=== PATIENT | female | born 1960 | race African-American/Black ===

== ENCOUNTER → 2022-11-16 09:39 | Outpatient (CLI) | payer SELFPAY ==
--- NOTE | ~2022-11-16 | MM_ITS ---
EXAMINATION: MM screening [facility] BI w veronica HISTORY: Screening TECHNIQUE: Craniocaudal and mediolateral oblique 3-D tomosynthesis images were obtained and synthetic 2-D images were generated. CAD analysis was submitted and interpreted. COMPARISON: No prior mammogram is available for comparison at this institution. BREAST PARENCHYMAL COMPOSITION: There are scattered areas of fibroglandular density. FINDINGS: There is diminished volume of the right breast and some retraction medially; history of par tial right mastectomy and radiotherapy for breast malignancy. Otherwise no suspicious mass or architectural distortion, malignant calcification, skin thickening or retraction is noted. IMPRESSION: 1. Status post right partial mastectomy for breast cancer; no mammographic evidence of malignancy 2. Recommend routine screening mammography in one year. BI-RADS Category 2: Benign finding(s). Reviewed, dictated and finalized at location B. IMPRESSION: 1. Status post right partial mastectomy for breast cancer; no mammographic evid ence of malignancy 2. Recommend routine screening mammography in one year. BI-RADS Category 2: Benign finding(s).
== END ==
DX: Z12.31 Encounter for screening mammogram for malignant neoplasm of breast (principal)
CPT/HCPCS: 77063; 77067

== ENCOUNTER 2024-02-26 20:56 | Emergency (ER) | payer OTHER, SELFPAY ==
--- NOTE | ~2024-02-26 | CT_ITS ---
CT of the Abdomen and Pelvis: Indication: Abdominal pain Technique: 2.5 mm axial scans were obtained through the abdomen and pelvis following intravenous adm inistration of 100 cc of Omnipaque 350. Dose reduction technique was used on this scan by utilizing a utomated exposure control and iterative reconstruction technique. The dose-length product (DLP) was 1 290.27 mGy-cm. Findings: Scans through the lung bases are unremarkable. The liver, spleen, pancreas, and adrenal glands are within normal limits. Small right renal cyst note d. 1.5 cm left renal mass demonstrates minimally increased Hounsfield units (Hounsfield units 29). Ch olecystectomy clips are present. No evidence of aortic aneurysm. No lymphadenopathy. No bowel obstruction or bowel wall thickening. There is no evidence to suggest acute appendicitis. Images through the pelvis were performed. Urinary bladder unremarkable. 3.8 cm left ovarian cyst pres ent. No ascites. Impression: 3.8 cm left ovarian cyst. Given patient age, pelvic ultrasound recommended to further assess. 1.5 cm suspected left renal cyst, although the Hounsfield units are mildly increased. Consider pre an d postcontrast CT or MR to confirm cystic rather than solid lesion. Reviewed, dictated and finalized at location . 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 Given patient age, pelvic ultrasound recommended to f urther assess. 1.5 cm suspected left renal cyst, although the Hounsfield units are mildly incr eased. Consider pre and postcontrast CT or MR to confirm cystic rather than sima id lesion.
[2024-02-26 21:00] VITALS: BP 173/75; PULSE 87; RESP 16; TEMP 36.3; O2SAT 99
[2024-02-27 02:21] VITALS: BP 164/74; PULSE 57; RESP 15; O2SAT 99
[2024-02-27 02:25] LABS: Basophils Percent Auto 0.3 % (0.2-1.2); Eosinophils Absolute Auto 0.3 K/mm3 (0-0.3); Eosinophils Percent Auto 1.7 % (0-4.4); Hematocrit 39.6 % (37.0-47.0); Hemoglobin 12.9 g/dL (12.0-15.0); Immature Granulocyte Absolute 0.04 K/mm3 (0.00-0.031); Immature Granulocyte Percent A 0.3 % (0-0.5); Lymphocytes Absolute Auto 8.97 K/mm3 (0.9-3.2); Lymphocytes Percent Auto 57.1 % (18.3-44.2); Mean Corpuscular HGB Conc 32.6 g/dl (32-36); Mean Corpuscular Hemoglobin 25.6 pg (26-34); Mean Corpuscular Volume 78.7 fl (80-100); Mean Platelet Volume 9.9 fl (7.4-10.4); Monocytes Absolute Auto 1.2 K/mm3 (0.1-0.6); Monocytes Percent Auto 7.3 % (2.6-8.5); Neutrophils Absolute Auto 5.2 K/mm3 (1.3-6.7); Neutrophils Percent Auto 33.3 % (45.5-73.1); Platelet Count Result 302 k/mm3 (150-375); Red Blood Count 5.03 M/mm3 (4.2-5.4); Red Cell Distribution Width 14.8 % (11.5-14.5); White Blood Count 15.7 K/mm3 (4.5-10.0)
[2024-02-27 02:31] LABS: Add Urine Microscopic? YES; Appearance Urine Clear (Clear); Bacteria Urine None Seen /hpf; Bilirubin Urine Negative (Negative); Blood Urine Negative (Negative); Color Urine Yellow (Yellow); Glucose Urine UA Negative (Negative); Ketones Urine Negative (Negative); Leukocyte Esterase Ur 2+ LEU/UL (Negative); Nitrate Urine Negative (Negative); Non Pathogenic Casts 0-2; Protein Urine Negative (Negative); Specific Grav Ur 1.015 (1.001-1.035); Squamous Epithelial Cell Urine Occasional /hpf (Few); Urobilinogen Urine 0.2 mg/dL (<2.0); WBC Urine 51-100 /hpf (0-3)
[2024-02-27 02:37] LABS: Alanine Aminotransferase 19 U/L (6-35); Albumin Level 4.6 g/dL (3.5-5.1); Alkaline Phosphatase 50 U/L (38-126); Anion Gap 5 mmol/L (4-12); Aspartate Amino Transferase 26 U/L (14-36); Bilirubin,Total 0.8 mg/dL (0.2-1.3); Blood Urea Nitrogen 13 mg/dL (7-17); Calcium 9.6 mg/dL (8.4-10.2); Carbon Dioxide 30 mmol/L (22-30); Chloride 105 mmol/L (98-107); Estimated CRCL calculation 67 ml/min; Estimated Glomerular Filt Rate > 60; Glucose 92 mg/dL (65-110); Lipase 120 U/L (23-300); Potassium 4.2 mmol/L (3.4-5.0); Sodium 140 mmol/L (137-145)
[2024-02-27] MEDS: SODIUM CHLORIDE 0.9% IV 1,000 ML 999 ML IV CONT (02:51)
[2024-02-27] MEDS: ONDANSETRON INJ 4 MG/2 ML VIAL IV PUSH (02:51)
[2024-02-27 02:58] LABS: Anisocytosis 1+; Burr Cells 1+; Hypochromasia 1+; Platelet Estimate Adequate (Adequate); Schistocytes None Seen; Smudge Cells PRESENT
[2024-02-27] MEDS: ACETAMINOPHEN 500 MG TABLET 1000 MG PO (02:58)
[2024-02-27 04:30] VITALS: BP 130/72; PULSE 67; RESP 15; O2SAT 95
--- NOTE | 2024-02-27 04:57 | ED.GENADULT ---
HPI - General Adult General Chief complaint: Abdominal Pain Stated complaint: abd pain, dizziness x 1 month Time Seen by Provider: 02/27/24 02:25 History of Present Illness HPI narrative: patient is 64-year-old female who presents emergency department with chief complaint of right-sided abdominal pain. Patient reports that she has had some itching over body for the last month but reports that she has discomfort in her right side her abdomen. Patient reports no fever reports she has had a headache with this. Related Data Allergies Allergy/AdvReac Type Severity Reaction Status Date / Time hydromorphone [From Dilaudid] Allergy Shakiness Verified 02/27/24 02:47 Penicillins Allergy Hallucinati Verified 02/27/24 02:47 ng Sulfa (Sulfonamide Allergy Hives Verified 02/27/24 02:47 Antibiotics) Review of Systems Review of Systems: A 10 system review of systems was completed on the patient and is negative except for what is stated in the HPI. Nursing and ancillary documentation was reviewed. Exam Narrative: GENERAL: Well-appearing, well-nourished, and in no acute distress. HEAD: Normocephalic, atraumatic. EYES: PERRLA and EOMI. ENT: Nares clear, no rhinorrhea or epistaxis. Mucous membranes moist. NECK: Supple. CHEST: Clear to auscultation. No respiratory distress. HEART: Regular rate and rhythm. No murmur heard. Normal peripheral pulses. ABDOMEN: Soft, nontender, nondistended, normal active bowel sounds. EXTREMITIES: Normal range of motion. No edema. SKIN: Warm, dry, no rash. NEURO: No focal deficits. Alert and oriented x3. PSYCH: Normal mood and affect. Course Vital Signs Vital signs: Vital Signs Temperature 36.3 C L 02/26/24 21:00 Pulse Rate 87 02/26/24 21:00 Respiratory Rate 16 02/26/24 21:00 Blood Pressure 173/75 H 02/26/24 21:00 Pulse Oximetry 99 02/26/24 21:00 Temperature 36.3 C L 02/26/24 21:00 Pulse Rate 67 02/27/24 04:30 Respiratory Rate 15 02/27/24 04:30 Blood Pressure 130/72 02/27/24 04:30 Pulse Oximetry 95 02/27/24 04:30 Medical Decision Making [facility] Narrative Medical decision making narrative: Differential diagnosis includes UTI, intra-abdominal infection, diverticulitis, colitis, appendicitis laboratory studies were obtained the patient shows CBC with white count 15.7 electrolytes are within normal limits lipase was normal urinalysis showed 51-100 white blood cells and 2+ leukocyte esterase patient was started on antibiotics. CT scan of the abdomen pelvis showed a left ovarian cyst and no other acute abnormalities Vital Signs Vital Signs: Vital Signs Temperature 36.3 C L 02/26/24 21:00 Pulse Rate 87 02/26/24 21:00 Respiratory Rate 16 02/26/24 21:00 Blood Pressure 173/75 H 02/26/24 21:00 Pulse Oximetry 99 02/26/24 21:00 Temperature 36.3 C L 02/26/24 21:00 Pulse Rate 67 02/27/24 04:30 Respiratory Rate 15 02/27/24 04:30 Blood Pressure 130/72 02/27/24 04:30 Pulse Oximetry 95 02/27/24 04:30 Lab Data 02/27/24 02:14 02/27/24 02:14 Labs: Lab Results 02/27/24 Range/Units 02:14 WBC 15.7 H (4.5-10.0) K/mm3 RBC 5.03 (4.2-5.4) M/mm3 Hgb 12.9 (12.0-15.0) g/dL Hct 39.6 (37.0-47.0) % MCV 78.7 L (80-100) fl MCH 25.6 L (26-34) pg MCHC 32.6 (32-36) g/dl RDW 14.8 H (11.5-14.5) % Plt Count 302 (150-375) k/mm3 MPV 9.9 (7.4-10.4) fl Immature Gran % (Auto) 0.3 (0-0.5) % Neut % (Auto) 33.3 L (45.5-73.1) % Lymph % (Auto) 57.1 H (18.3-44.2) % [place] % (Auto) 7.3 (2.6-8.5) % Eos % (Auto) 1.7 (0-4.4) % Baso % (Auto) 0.3 (0.2-1.2) % Lymph # (Auto) 8.97 H (0.9-3.2) K/mm3 [place] # (Auto) 1.2 H (0.1-0.6) K/mm3 Eos # (Auto) 0.3 (0-0.3) K/mm3 Baso # (Auto) 0.0 (0.0-0.1) K/mm3 Abs Immat Gran (auto) 0.04 H (0.00-0.031) K/mm3 Absolute Neuts (auto) 5.2 (1.3-6.7) K/mm3 Absolute Nucleated RBC 0.000 (0.0-0.012) K/mm3 Nucleated RBC % 0.0 (0.0-0.2) % Smudge Cells Present Platelet Estimate Adequate (Adequate) Hypochromasia 1+ Anisocytosis 1+ Sanders Cells 1+ Schistocytes None seen Sodium 140 (137-145) mmol/L Potassium 4.2 (3.4-5.0) mmol/L Chloride 105 (98-107) mmol/L Carbon Dioxide 30 (22-30) mmol/L Anion Gap 5 (4-12) mmol/L BUN 13 (7-17) mg/dL Creatinine 0.90 (0.7-1.0) mg/dL Estim Creat Clear Calc 67 ml/min Estimated GFR > 60 (59 - ) Glucose 92 (65-110) mg/dL Calcium 9.6 (8.4-10.2) mg/dL Total Bilirubin 0.8 (0.2-1.3) mg/dL AST 26 (14-36) U/L ALT 19 (6-35) U/L Alkaline Phosphatase 50 (38-126) U/L Total Protein 9.0 H (6.3-8.2) g/dL Albumin 4.6 (3.5-5.1) g/dL Lipase 120 (23-300) U/L Urine Color Yellow (Yellow) Urine Appearance Clear (Clear) Urine pH 6.0 (5.0-9.0) Ur Specific [place] 1.015 (1.001-1.035) Urine Protein Negative (Negative) mg/dL Urine Glucose (UA) Negative (Negative) mg/dL Urine Ketones Negative (Negative) mg/dL Ur Blood (Man) Negative (Negative) Urine Nitrate Negative (Negative) Urine Bilirubin Negative (Negative) Urine Urobilinogen 0.2 (<2.0) mg/dL Leukocyte Esterase Rfl 2+ H (Negative) AJ/UL Urine RBC 3-5 H (0-2) /hpf Urine WBC 51-100 H (0-3) /hpf Ur Squamous Epith Cells Occasional (Few) /hpf Urine Bacteria None seen /hpf Urine Casts 0-2 Discharge Plan Discharge Clinical Impression: Acute UTI, Abdominal pain, Ovarian cyst Patient Disposition: Home, Self-Care Condition: Stable Instructions: Antibiotic Form, Ovarian Cyst (ED), Urinary Tract Infection in Women (ED), Abdominal Pain (ED) Additional Instructions: the CT scan shows that there appears to be a cyst in the area we are left ovary is. your urinalysis shows that she have a urinary tract infection. You were started on antibiotics is recommended that you follow-up with your primary care provider to ensure that things have improved. Is also recommended that you follow-up with your OBGYN Prescriptions: New cephalexin 500 mg capsule 500 mg PO Q12H 7 Days Qty: 14 0RF Follow-up/Referrals: PHYSICIAN NOT ON STAFF,NONSTAFF [Primary Care Provider] - Time of Disposition: 05:03
[2024-02-27] MEDS: CEPHALEXIN 500 MG CAPSULE PO (05:12)
[2024-02-27 05:15] VITALS: BP 124/70; PULSE 61; RESP 17; O2SAT 99
== END 2024-02-27 05:15 | disposition home or self-care (01) ==
PROVIDERS: Preventive Medicine Aerospace Medicine; Emergency Provider Emergency Medicine
DX: N39.0 Urinary tract infection, site not specified (principal); N83.209 Unspecified ovarian cyst, unspecified side; R93.422 Abnormal radiologic findings on diagnostic imaging of left kidney
CPT/HCPCS: 36415; 74177; 80053; 81001; 83690; 85025; 87086; 96361; 96374; 99284; A9270; J2405; J7030; Q9967

== ENCOUNTER 2024-08-31 01:05 | Day surgery (SDC) | payer MEDICARE, SELFPAY ==
[2024-08-24 10:55] VITALS: BMI 34.5
--- OUTSIDE RECORDS SUMMARY | 2024-08-31 01:07 | XMS_ITS | Referral Summary ---
Author Organization [facility] Address Count includes the [facility] [place] [address] Care Team Providers Care Senior Economist Name Role Phone Carlos Yanez MD Primary Care Provider Encounters Date Type Department Care Team Description 06/15/2024 Orders Only [facility] Neurology [facility] [address] [address] Vincenzo Capps Si, MD Vertigo from Last 3 Months Allergies Active Allergy Reactions Criticality Noted Date Comments Hydromorphone Shortness of breath High 01/14/2020 Penicillins Dizziness Low 09/29/2019 Sulfa Hives,Urticaria Medium 09/29/2019 Medications calcium carbonate-vitam in D3 1,500 mg (600mg elemental) -800 unit per tablet Take 1 tablet by mouth every morning Active fish oil-dha-epa 1,200-144-216 mg capsule Take by mouth 2 (two) times a day Active ascorbic acid (ascorbic acid with lalo hips) 500 mg tablet,chewable 500 mg every morning Active cholecalciferol (VITAMIN D-3) 5,000 unit capsule Take 1 capsule (5,000 Units total) by mouth every morning Active fluticasone propionate (FLONASE) 50 mcg/actuation nasal spray Administer 2 sprays into affected nostril(s) daily 9 Active metoprolol XL (TOPROL-XL) 50 mg extended release tablet Take 1 tablet (50 mg total) by mouth daily 4 Active omeprazole (PriLOSEC) 40 mg capsule Take 1 capsule (40 mg total) by mouth daily 30 capsule 1 4 Active cephalexin (KEFLEX) 500 mg capsule Take 1 capsule (500 mg total) by mouth every 12 (twelve) hours 4 Active cetirizine (ZyrTEC) 10 mg tablet Take 1 tablet (10 mg total) by mouth daily 5 Active meclizine (ANTIVERT) 25 mg tablet Take 1 tablet (25 mg total) by mouth 3 (three) times a day 5 Active spironolactone (ALDACTONE) 50 mg tablet Take 1 tablet (50 mg total) by mouth daily 5 Active venlafaxine (EFFEXOR) 25 mg tablet Take 1 tablet (25 mg total) by mouth 2 (two) times a day 60 tablet 5 5 11/25/19 25 Active Active Problems Problem Noted Date Diagnosed Date 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 Left hemithyroidectomy with substernal extension. 2. Reimplantation of half of the left superior parathyroid into right deltoid musculature. Multiple thyroid nodules 12/07/2019 Overview (12/07/2019): Added automatically from request for surgery [id number] Social History Tobacco Use Types Packs/Day Years Used Date Smoking Tobacco: Former Cigarettes Q uit: 1996 Smokeless Tobacco: Never Tobacco Cessation:Counseling Given: Not Answered Alcohol Use Standard Drinks/Week Comments Never 0 (1 standard drink = 0.6 oz pur e alcohol) AUDIT-C Answer Date Recorded Q1: How often do you have a drink containing alc ohol? Never 08/25/2023 Average Number of Drinks Not on file 024 Frequency of Binge Drinking Not on file 05/2023 Comments No Sex and Gender Information Value Date Recorded Sex Assigned at Not on file Legal Sex Female 4:31 PM SANITATION ASSOCIATE Gender Identity Not on file Sexual Orientation Not on file Last Filed Vital Signs Vital Sign Reading Time Taken Comments Blood Pressure 158/71 01/14/2020 3:50 PM CDT Pulse 84 01/14/2020 3:50 PM CDT Temperature 36.1 C (97 F) 01/14/2020 4:15 PM CDT Respiratory Rate 25 01/14/2020 3:50 PM CDT Oxygen Saturation 97% 01/14/2020 3:50 PM CDT Inhaled Oxygen Concentration - - Weight 101.6 kg (224 lb) 05/28/2024 8:04 AM SANITATION ASSOCIATE Height 170.2 cm (5' 7) 05/28/2024 8:04 AM SANITATION ASSOCIATE Body Mass Index 35.08 05/28/2024 8:04 AM SANITATION ASSOCIATE Plan of Treatment Not on file Procedures Procedure Name Priority Date/Time Associated Diagnosis Comments SCREENING MAMMOGRAM BILATERAL W MATHEUS Schedule Routine, Read Routine (OP Routine) 05/29/2024 1:48 PM SANITATION ASSOCIATE Screening mammogram, encounter for COLONOSCOPY 11/18/2019 8:47 AM CDT from Last 3 Months or Most Recently Relevant to Health Maintenance Results * Screening Mammogram Bilateral W Matheus (05/29/2024 1:48 PM SANITATION ASSOCIATE) Anatomical Region Laterality Modality Breast Bilateral Mammography Narrative 05/31/2024 12:45 PM CDT Mammogram Technique: Bilateral Digital Breast Tomosynthesis, Bilateral C-view 2D Screening mammogram. Views obtained: bilateral craniocaudal and bilateral mediolateral oblique. Computer Aided Detection was performed. Mammogram Findings: The present examination has been compared to prior imaging studies performed at [facility] on 11/24/2019 and 11/30/2020, and at [facility]. [place], [place] on 07/24/2018. There are scattered areas of fibroglandular density. There are post breast conservation therapy changes in the right breast. There is no suspicious abnormality in either breast. Impression: There is no mammographic evidence of malignancy. Annual screening mammography is recommended. OVERALL FINAL ASSESSMENT: BI-RADS CATEGORY 2: Benign. Procedure Note Kandis Garcia MD - 05/31/2024 Mammogram Technique: Bilateral Digital Breast Tomosynthesis, Bilateral C-view 2D Screening mammogram. Views obtained: bilateral craniocaudal and bilateral mediolateral oblique. Computer Aided Detection was performed. Mammogram Findings: The present examination has been compared to prior imaging studies performed at [facility] on 11/24/2019 and 11/30/2020, and at [facility]. [place], [place] on 07/24/2018. There are scattered areas of fibroglandular density. There are post breast conservation therapy changes in the right breast. There is no suspicious abnormality in either breast. Impression: There is no mammographic evidence of malignancy. Annual screening mammography is recommended. OVERALL FINAL ASSESSMENT: BI-RADS CATEGORY 2: Benign. us Self Screening Mammogram IMG MAMMO PROCEDURES Fi nal Result * COLONOSCOPY (11/18/2019 8:47 AM CDT) Anatomical Region Laterality Modality Other Narrative Procedure Note Esperanza Gross MD - 11/18/2019 8:47 AM CDT [facility] ENDOSCOPY [facility] Patient Name: Fariba Kaplan Procedure Date: 11/18/2019 8:47 AM Date of : 1960 Admit Type: Outpatient Age: 59 Gender: Female Attending MD: Esperanza Gross MD Room: [facility] ENDOSCOPY ROOM 8 Note Status: Finalized Procedure: Colonoscopy Indications: Periumbilical abdominal pain, Diarrhea Referring MD: Annalee Melo M.D. Providers: Esperanza Gross MD, Edwin Grier M.D. Medicines: Monitored Anesthesia Care Complications: No immediate complications. Estimated Blood Loss: Minimal. Procedure: Pre-Anesthesia Assessment: - Monitored anesthesia care under the supervision ofa ENGINEERING AID was determined to be medically necessary forthis procedure based on review of the patient's medical history, medications, and prior anesthesiahistory. - Immediately prior to administration ofmedications, the patient was re-assessed for adequacy to receive sedatives. - The risks and benefits of the procedure and the sedation options and risks were discussed with the patient. All questions were answered and informed consent was obtained. The benefits, risks and alternatives of theprocedure and sedation were discussed and informed consent was obtained. All questions were answered. Please referto the signed informed consent document in the medical record. The scope was passed under direct vision.The CF HQ [id number] endoscope was introduced through the anus and advanced to the cecum, identified by appendiceal orifice and ileocecal valve. The colonoscopy was performed without difficulty. The patient tolerated the procedure well. The quality of the bowel preparation was excellent. The bowel preparation used was GoLYTELY. Bowel prep was administered using a split dose. Findings: A 5 mm polyp was found in the cecum. The polyp was sessile. The polyp was removed with a cold snare. Resection and retrieval werecomplete. A 5 mm polyp was found in the transverse colon. The polyp wassessile. The polyp was removed with a cold snare. Resection and retrieval were complete. Normal mucosa was found in the entire colon. Biopsies for histologywere taken with a cold forceps from the entire colon for evaluation of microscopic colitis. Four sessile polyps were found in the recto-sigmoid colon(hyperplastic appearing). The polyps were 3 mm in size. These polyps were removedwith a jumbo cold forceps. Resection and retrieval were complete. Non-bleeding internal hemorrhoids were found during retroflexion. Impression: - One 5 mm polyp in the cecum, removed with a cold snare. Resected and retrieved. - One 5 mm polyp in the transverse colon, removedwith a cold snare. Resected and retrieved. - Four 3 mm polyps (hyperplastic appearing) at the recto-sigmoid colon, removed with a jumbo coldforceps. Resected and retrieved. - Non-bleeding internal hemorrhoids. - Normal mucosa in the entire examined colon.Biopsied. Recommendation: - Discharge patient to home. - Await pathology results. - Repeat colonoscopy in 3-5 years for surveillance based on pathology results. - Return to referring physician. - A polyp or polyps were removed during your colonoscopy today. After the pathology result of the polyp(s) is reviewed, the doctor who performed your colonoscopy will recommend follow-up colonoscopy toyou based on current guidelines by gastroenterology societies: - If only small hyperplastic polyps from the rectumor sigmoid were removed, repeat the colonoscopy in 10 years. - If 1 or 2 polyps less than 1 cm in size areadenomas, repeat the colonoscopy in 5 years. - If 3 or more polyps are adenomas, repeat the colonoscopy in 3 years. - If there are 10 or more adenomas, repeat the colonoscopy in 1 year. - If any polyp is 10 mm or greater in size, hasvillous histology or high grade dysplasia, repeat the colonoscopy in 3 years. - If a polyp greater than 2 cm was removed with a piecemeal technique, repeat the colonoscopy in 6months to be certain that there is no residual polyp. - Sessile serrated polyps are treated like adenomasfor surveillance purposes. Attending Participation: I personally performed the entire procedure. Electronically signed by Esperanza Gross MD Esperanza Gross MD 11/18/2019 9:30:53 AM . Number of Addenda: 0 Note Initiated On: 11/18/2019 8:47 AM Recognized by the [place] [employer] for promoting quality in endoscopy us Esperanza Gross MD ENDOSCOPY PROCEDURES [place] l Result from Last 3 Months or Most Recently Relevant to Health Maintenance Insurance [facility] MEDICARE HMO G[facility]WAY TO [facility] [employer] MEDICARE HMO Advance Directives For more information, please contact: [phone] * Full Code (Latest Code Status on File) Date Activated Date Inactivated Comments 11/18/2019 8:26 AM 11/18/2019 4:55 PM Care Teams Senior Economist Relationship Specialty Start Date End Date Carlos Yanez MD [address] [place] [address] PCP - General Internal Medicine 05/10/24
--- OUTSIDE RECORDS SUMMARY | 2024-08-31 01:07 | XMS_ITS | Clinical Summary ---
Author Organization [facility] Address [address] [address] Care Team Providers Care Recycling Center Operator Name Role Phone Unavailable Primary Care Provider Unavailabl e Social History Tobacco Use Types Packs/Day Years Used Date Smoking Tobacco: Never Assessed Comments Unknown Sex and Gender Information Value Date Recorded Sex Assigned at Not on file Legal Sex Female 2:11 PM CDT Gender Identity Not on file Sexual Orientation Not on file Plan of Treatment Health Maintenance Due Date Last Done Comments DTAP/TDAP/TD VACCINES (1 - Tdap) 1977 BREAST CANCER SCREENING 1998 COLORECTAL SCREENING 2003 Colorectal Cancer Screening 2003 FIT-DNA Q 3 years 2003 FIT/FOBT Q 1 year 2003 Flex Sig/CT Colonography Q 5 years 2003 PNEUMOCOCCAL VACCINE 50+ YEARS (1 of 1 - PCV) 02/08/20 08 ZOSTER VACCINE (1 of 2) 02/08/2008 OSTEOPOROSIS SCREENING 2023 INFLUENZA VACCINE (#1) 2023 RSV VACCINE (60+ or ) (1 - 1-dose 75+ series) 2033
--- OUTSIDE RECORDS SUMMARY | 2024-08-31 01:07 | XMS_ITS | Clinical Summary ---
Author Organization [facility] Address [address] [place] [phone] Care Team Providers Care Civil Structural Engineer Name Role Phone Carlos Yanez MD Primary Care Provider Allergies Active Allergy Reactions Criticality Noted Date [...] (12/07/2019): Added automatically from request for surgery [id number] Encounters Date Type Department Care Team Description 06/15/2024 Orders Only [facility] Neurology [address] [place] [phone] Vincenzo Capps Si, MD Vertigo from Last 3 Months Surgical History Surgery Date Site/Laterality Comments HYSTERECTOMY 03/24/1991 - 03/23/1992 BREAST LUMPECTOMY 03/24/2016 - 03/23/2017 Right CHOLECYSTECTOMY 03/24/2007 - 03/23/2008 THYROID SURGERY Medical History Medical History Date Comments GERD (gastroesophageal reflux disease) Hypertension H. pylori infection 2016 Thyroid nodule Urinary tract infection Cervical cancer (HCC) 1991 Family History Medical History Relation Name Comments Thyroid cancer Brother Cancer Child Breast cancer Mother Anesthesia problems Neg Hx Relation Name Status Comments Brother Alive Child Other daughter and so n both with Hodgkins Lymphoma Mother Social History Tobacco Use Types Packs/Day Years [...] on file Legal Sex Female 4:31 PM MOVE COORDINATOR Gender Identity Not on file Sexual Orientation Not on file Obstetrics History Last Filed Vital Signs Vital Sign Reading Time Taken Comments Blood Pressure 158/71 01/14/2020 3:50 PM CDT Pulse 84 01/14/2020 3:50 PM CDT Temperature 36.1 C (97 F) 01/14/2020 4:15 PM CDT Respiratory Rate 25 01/14/2020 3:50 PM CDT Oxygen Saturation 97% 01/14/2020 3:50 PM CDT Inhaled Oxygen Concentration - - Weight 101.6 kg (224 lb) 05/28/2024 8:04 AM MOVE COORDINATOR Height 170.2 cm (5' 7) 05/28/2024 8:04 AM MOVE COORDINATOR Body Mass Index 35.08 05/28/2024 8:04 AM MOVE COORDINATOR Plan of Treatment Health Maintenance Due Date Last Done Comments Depression Screening 1960 Hepatitis C Screening 1960 Osteoporosis Screening-Bone Density Scan 1960 DTaP/Tdap/Td Vaccine (1 - Tdap) 1969 Hepatitis B Screening 02/08/1976 Pneumococcal vaccine 65+ (1 of 2 - PCV) 1977 Zoster Vaccine (1 of 2) 02/08/2008 Fall Risk Assessment 01/13/2021 01/14/2020 Well Visit 65+ 2023 Influenza Vaccine (Season Ended) 2024 04/01/19 20 Breast Cancer Screening-Mammogram 05/29/2025 05/29/2024, 11/30/2020, 11/24/2019 Colon Cancer Screening-Colonoscopy 11/17/20292019 Colon Cancer Screening-CT Colonography Discontinued 11/18/2019 Colon Cancer Screening-DNA Stool Discontinued 11/18/19 20 Colon Cancer Screening-FIT Discontinued 11/18/2019 Colon Cancer Screening-Sigmoidoscopy Discontinued 10/23 Procedures Procedure Name Priority Date/Time Associated Diagnosis Comments SCREENING MAMMOGRAM BILATERAL W MATHEUS Schedule Routine, Read Routine (OP Routine) 05/29/2024 1:48 PM MOVE COORDINATOR Screening mammogram, encounter for COLONOSCOPY 11/18/2019 8:47 AM CDT from Last 3 Months or Most Recently Relevant to Health Maintenance Results * Screening Mammogram Bilateral W Matheus (05/29/2024 1:48 PM MOVE COORDINATOR) Anatomical Region Laterality Modality Breast Bilateral Mammography Narrative 05/31/2024 12:45 PM CDT Mammogram Technique: Bilateral Digital Breast Tomosynthesis, Bilateral C-view 2D Screening mammogram. Views obtained: bilateral craniocaudal and bilateral mediolateral oblique. Computer Aided Detection was performed. Mammogram Findings: The present examination has been compared to prior imaging studies performed at [facility] on 11/24/2019 and 11/30/2020, and at [facility]. Anita Parker on 07/24/2018. There are scattered areas of [...] compared to prior imaging studies performed at [facility] on 11/24/2019 and 11/30/2020, and at [facility]. Anita Parker on 07/24/2018. There are scattered areas of [...] Female Attending MD: Esperanza Gross MD Room: [facility] ENDOSCOPY ROOM 8 Note Status: Finalized Procedure: Colonoscopy Indications: Periumbilical abdominal pain, Diarrhea Referring MD: Annalee Melo M.D. Providers: Esperanza Gross MD, Edwin Grier M.D. Medicines: Monitored Anesthesia Care Complications: No immediate complications. Estimated Blood Loss: Minimal. Procedure: Pre-Anesthesia Assessment: - Monitored anesthesia care under the supervision ofmarga GEOPHYSICAL E LOGGER was determined to be medically necessary forthis [...] On: 11/18/2019 8:47 AM Recognized by the [place] [employer] for promoting quality in endoscopy Esperanza Gross MD ENDOSCOPY PROCEDURES [place] l Result from Last 3 Months or Most Recently Relevant to Health Maintenance Insurance [facility] MEDICARE HMO [employer]AY TO BETTER HE[employer] MEDICARE HMO Advance Directives For more information, please contact: [phone] * Full Code (Latest Code Status on File) Date Activated Date Inactivated Comments 11/18/2019 8:26 AM 11/18/2019 4:55 PM Care Teams Civil Structural Engineer Relationship Specialty Start Date End Date Carlos Yanez MD [address] [place] [address] PCP - General Internal Medicine 05/10/24
--- OUTSIDE RECORDS SUMMARY | 2024-08-31 01:07 | XMS_ITS | Encounter Summary ---
Author Organization [facility] Address [address] [facility] [place] [address] Phone Care Team Providers Care Cable Tester Name Role Phone Carlos Yanez MD Primary Care Provider [phone] Encounter Details Date Type Department Care Team (Late st Contact Info) Description 07/29/2024 Telephone [facility] Oncology Services [address] [place] [phone] Gracy Luis Cordelia, [address], [place] [id number] Social History Tobacco Use Types Packs/Day Years Used Date Smoking Tobacco: Former Cigarettes Q uit: 1990 Smokeless Tobacco: Never Alcohol Use Standard Drinks/Week Comments Never 0 (1 standard drink = 0.6 oz pur e alcohol) Comments Unknown Sex and Gender Information Value Date Recorded Sex Assigned at Not on file Legal Sex Female 3:32 PM CDT Gender Identity Not on file Sexual Orientation Not on file documented as of this encounter Miscellaneous Notes * Telephone Encounter - Karissa Short MA - 07/29/2024 1:02 PM CDT Called patient to reschedule appointment due to waiting on JAK2 results. Patient asked if she couldbe seen sooner even without the result back. States she has been feeling more discomfort and pain in her abdominal/kidney/liver area. Informed patient I will reschedule her 1 week out for now and notify provider of pain. documented in this encounter Plan of Treatment Upcoming Encounters Date Type Department Care Team (Late st Contact Info) Description 02/04/2025 3:30 PM PAINTER INTERIOR FINISH [facility] [address] [place] [phone] Gracy Luis Cordelia, PAC [address] [place] [address] Discharge Disposition: Discharged to home or Selfcare 02/11/2025 3:20 PM PAINTER INTERIOR FINISH Office Visit [facility] Oncology Services [address] [place] [phone] Gracy Luis August, PAC [address] [place] [address] Discharge Disposition: Discharged to home or Selfcare documented as of this encounter Visit Diagnoses Not on filedocumented in this encounter Care Teams Cable Tester Relationship Specialty Start Date End Date Carlos Yanez MD [address] [place] [address] PCP - General Internal Medicine 06/28/24 documented as of this encounter
--- OUTSIDE RECORDS SUMMARY | 2024-08-31 01:07 | XMS_ITS | Patient Health Record ---
Author Organization [facility] Address [address] [place] [address] Support Name Relationship Address Phone Fariba Kaplan Guarantor Unknown [phone] Reason For Referral No Information Plan Of Treatment No Information
--- OUTSIDE RECORDS SUMMARY | 2024-08-31 01:08 | XMS_ITS | Data Portability ---
Author Organization [facility] [place] Address [address] [place] [address] Care Team Providers Care Storage Battery Inspector Name Role Phone TAWANA YANEZ Primary Care Provider [phone] Assessment Encounter Date Assessment Date Assessment LastModified by Organization Details LastModified Time 03/31/2024 03/31/2024 blood pressure marginal control 1 time reading though we will observe obtain MRI brain with and without contrast to include IAC's CBC CMP lipid UA with micro. Meclizine 25 t.i.d. p.r.n. for vertigo. Obtain old records. I would like to see her back in about 3-4 weeks. Healthy lifestyle care instructions EKG shows a normal sinus rhythm questionable old inferior GA no acute changes no previous EKG to compare. Lhdb-mba-yszrbrl ear drops she can start those today [email or web address] Not available 04/04/2024 17:21:52 04/28/2024 04/28/2024 upper endoscopie s start proton pump inhibitor as well get her set up for well-woman exam she already is set up for Neurology and Ophthalmology because of the MRI of the brain findings follow up with me in 3 months Not available 05/02/2024 17:24:09 08/03/2024 08/03/2024 We will continue current therapy she will monitor blood pressure she is under a lot of stress right now venlafaxine can also be decompensating in and we will trend at next visit she will follow up with me in 4 months' time php consultant notes have been reviewed [email or web address] Not available 08/16/2024 18:16:28 Plan of Treatment Reminders Order Date Submit Date Provider Last Modified By Organization Details Last Modified Time Details Appointments ANY 15 2024 10:30A M Tawana Yanez MD Not available Not available Not available Lab CBC w/ auto diff 2024 025 [facility], [address] [place] [address], [place], [address], 04/02/2024 06:16:59 CMP, serum or plasma 2024 025 [facility], [address] [place] [address] 2, [place], [address], 04/02/2024 06:16:55 lipid panel, serum 2024 025 [facility], [address] [place] [address] 2, [place], [address], 04/02/2024 06:16:53 urinal ysis comple te, reflex cultur e 2024 025 [facility], [address] [place] [address] 2, [place], [address], 04/02/2024 06:16:57 T4, free, serum 2024 025 [facility], [address] [place] [address] 2, [place], [address], 04/02/2024 06:17:02 T3, free, serum or plasma 2024 025 [facility], [address] [place] [address], [place], [address], 04/02/2024 06:17:01 TSH, ultra- sensit luciana, serum 2024 025 [facility], [address] [place] [address], [place], [address], 04/02/2024 06:16:58 Referral None record ed. Procedures upper endosc opy proced ure (EGD) (PROC) - Per [facility] portal , case has been approv ed. Please see attach ment for refere nce. Howeve r, the provid er addres s on the approv al (which is also the only addres s on the portal ) is [address] [place] [address] while the provid er addres s on the task is [address] [place], [address]. Furthe rmore, the facili ty addres s on the approv al (which is also the only addres s on the portal ) is [address] [facility] [address] [place] [address] while the facili ty addres s on the task is [address] [facility] [address], [place], [address]. There are slight differ ence on the street number sDilcia elizabeth MD Office : Please verify if we needed to update both addres s on the approv al or leave it as is. Thank you. 2024 025 [facility], [address] [facility] [address], [id number] [place] [address], [address], 07/09/2024 12:48:13 Surgeries None record ed. Imaging MRI, brain + internal control specialist al audito ry canal, w/wo contra st 2024 025 [facility] ([facility]), [address] [place], [address], 04/05/2024 11:09:58 electr ocardi ogram 2024 025 [id number] In-Office Order, Internal Use Only DO Not Attach Compendium DO Not Attach Compendium, Do Not Delete/merge, [id number] 03/31/2024 17:47:47 Medication Orders metopr olol succin ate ER 50 mg tablet ,exten ded releas e 24 hr 2024 025 [facility], [address] [facility], [place], [address], 08/03/2024 12:20:33 Flonas e Allerg y Relief 50 mcg/ac tuatio n nasal spray, suspen harley [address] [facility], [address] [place] [address], [id number], 04/28/2024 18:02:36 cetiri zine 10 mg tablet [address] [facility]31, [address] [place] [address], [id number], 04/28/2024 18:02:36 omepra zole 40 mg capsul e,aminata yed releas e [address] [facility]25, [address] [place] [address], [id number], 04/28/2024 18:02:36 mecliz ine 25 mg tablet [address] [facility]337, [address] [place] [address], [id number], 04/28/2024 18:02:36 metopr olol succin ate ER 50 mg tablet ,exten ded releas e 24 hr [address] [facility]72026, [address] [place] [address], [id number], 04/28/2024 18:02:36 mecliz ine 25 mg tablet 2024 025 [address] [facility], [address] [place] [address], [id number], 03/31/2024 17:47:47 Patient TargetsNo targets recorded. Patient Instructions Encounter Date Encounter Id Patient Instructions Last Modified By Organization Details Last Modified Time 03/31/2024 [id number] A healthy lifestyle: care instructions [email or web address] Not available 03/31/2024 15:20:00 04/28/2024 [id number] A healthy lifestyle: care instructions [email or web address] Not available 04/28/2024 18:02:36 08/03/2024 [id number] A healthy lifestyle: care instructions [email or web address] Not available 08/03/2024 12:20:33 Reason for Referral None Reported. Results Created Date Observation Date Name Description Value Unit Range Abnormal Flag Note LastModifiedBy Organization Detail LastModifiedTime 03/31/1904/01/2024 LIPID PANEL cholesterol, total 211 mg/dL 100-19 9 above high normal Not Available [facility] ([facility]) [address] [place], [address], 04/02/2024 06:16:53 03/31/1904/01/2024 LIPID PANEL triglyceride s 74 mg/dL 0-149 Not Available [facility] ([facility]) [address] [place], [address], 04/02/2024 06:16:53 03/31/1904/01/2024 LIPID PANEL HDL cholesterol 61 mg/dL >39 Not Available [facility] ([facility]) [address] [place], [address], 04/02/2024 06:16:53 03/31/1904/01/2024 LIPID PANEL VLDL cholesterol maria dolores 13 mg/dL 5-40 Not Available [facility] ([facility]) [address] [place], [address], 04/02/2024 06:16:53 03/31/1904/01/2024 LIPID PANEL LDL chol calc ([facility]) 137 mg/dL 0-99 above high normal Not Available [facility] ([facility]) [address] [place], [address], 04/02/2024 06:16:53 03/31/1904/01/2024 COMP. METAB OLIC PANEL (14) glucose 84 mg/dL 70-99 Not Available [facility] ([facility]) [address] [place], [address], 04/02/2024 06:16:55 03/31/19 25 04/01/2024 COMP. METAB OLIC PANEL (14) BUN 10 mg/dL 8-27 Not Available [facility] ([facility]) [address] [place], [address], 04/02/2024 06:16:55 03/31/19 25 04/01/2024 COMP. METAB OLIC PANEL (14) creatinine 1.10 mg/dL 0.57-1 .00 above high normal Not Available [facility] ([facility]) [address] [place], [address], 04/02/2024 06:16:55 03/31/19 25 04/01/2024 COMP. METAB OLIC PANEL (14) eGFR 55 mL/mi n/1.7 3 >59 below low normal Not Available [facility] ([facility]) [address] [place], [address], 04/02/2024 06:16:55 03/31/19 25 04/01/2024 COMP. METAB OLIC PANEL (14) BUN/creatini ne ratio 9 12-28 below low normal Not Available [facility] ([facility]) [address] [place], [address], 04/02/2024 06:16:55 03/31/19 25 04/01/2024 COMP. METAB OLIC PANEL (14) sodium 138 mmol/ L 134-14 4 Not Available [facility] ([facility]) [address] [place], [address], 04/02/2024 06:16:55 03/31/19 25 04/01/2024 COMP. METAB OLIC PANEL (14) potassium 5.1 mmol/ L 3.5-5. 2 Not Available [facility] ([facility]) [address] [place], [address], 04/02/2024 06:16:55 03/31/19 25 04/01/2024 COMP. METAB OLIC PANEL (14) chloride 98 mmol/ L 96-106 Not Available [facility] ([facility]) [address] [place], [address], 04/02/2024 06:16:55 03/31/19 25 04/01/2024 COMP. METAB OLIC PANEL (14) carbon dioxide, total 24 mmol/ L 20-29 Not Available [facility] ([facility]) [address] [place], [address], 04/02/2024 06:16:55 03/31/19 25 04/01/2024 COMP. METAB OLIC PANEL (14) calcium 10.1 mg/dL 8.7-10 .3 Not Available [facility] ([facility]) [address] [place], [address], 04/02/2024 06:16:55 03/31/19 25 04/01/2024 COMP. METAB OLIC PANEL (14) protein, total 7.9 g/dL 6.0-8. 5 Not Available [facility] ([facility]) [address] [place], [address], 04/02/2024 06:16:55 03/31/19 25 04/01/2024 COMP. METAB OLIC PANEL (14) albumin 4.9 g/dL 3.9-4. 9 Not Available [facility] ([facility]) [address] [place], [address], 04/02/2024 06:16:55 03/31/19 25 04/01/2024 COMP. METAB OLIC PANEL (14) globulin, total 3.0 g/dL 1.5-4. 5 Not Available [facility] ([facility]) [address] [place], [address], 04/02/2024 06:16:55 03/31/19 25 04/01/2024 COMP. METAB OLIC PANEL (14) bilirubin, total 0.8 mg/dL 0.0-1. 2 Not Available [facility] ([facility]) [address] [place], [address], 04/02/2024 06:16:55 03/31/19 25 04/01/2024 COMP. METAB OLIC PANEL (14) alkaline phosphatase 66 IU/L 44-121 Not Available [facility] ([facility]) [address] [facility], [place], [address], 04/02/2024 06:16:55 03/31/19 25 04/01/2024 COMP. METAB OLIC PANEL (14) AST (SGOT) 20 IU/L 0-40 Not Available [facility] ([facility]) [address] [facility], [place], [address], 04/02/2024 06:16:55 03/31/19 25 04/01/2024 COMP. METAB OLIC PANEL (14) ALT (SGPT) 19 IU/L 0-32 Not Available [facility] ([facility]) [address] [facility], [place], [address], 04/02/2024 06:16:55 03/31/19 25 04/01/2024 MICRO SCOPI C EXAMI NATIO N WBC 0-5 /hpf 0-5 Not Available [facility] ([facility]) [address] [place], [address], 04/02/2024 06:16:56 03/31/19 25 04/01/2024 MICRO SCOPI C EXAMI NATIO N RBC None seen /hpf 0-2 Not Available [facility] ([facility]) [address] [place], [address], 04/02/2024 06:16:56 03/31/19 25 04/01/2024 MICRO SCOPI C EXAMI NATIO N epithelial cells (non renal) 0-10 /hpf 0-10 Not Available [facility] ([facility]) [address] [place], [address], 04/02/2024 06:16:56 03/31/19 25 04/01/2024 MICRO SCOPI C EXAMI NATIO N casts None seen /lpf nonese en Not Available [facility] ([facility]) [address] [facility], [place], [address], 04/02/2024 06:16:56 03/31/1904/01/2024 MICRO SCOPI C EXAMI NATIO N bacteria None seen nonese en/few Not Available [facility] ([facility]) [address] [facility], [place], [address], 04/02/2024 06:16:56 03/31/19 25 04/01/2024 UA/M W/RFL X CULTU RE ROUTI NE specific gravity 1.005 1.005- 1.030 Not Available [facility] ([facility]) [address] [facility], [place], [address], 04/02/2024 06:16:56 03/31/19 25 04/01/2024 UA/M W/RFL X CULTU RE ROUTI NE pH 6.5 5.0-7. 5 Not Available [facility] ([facility]) [address] [facility], [place], [address], 04/02/2024 06:16:56 03/31/1904/01/2024 UA/M W/RFL X CULTU RE ROUTI NE urine-color YELLOW yellow Not Available [facility] ([facility]) [address] [facility], [place], [address], 04/02/2024 06:16:56 03/31/1904/01/2024 UA/M W/RFL X CULTU RE ROUTI NE appearance CLEAR clear Not Available [facility] ([facility]) [address] [facility], [place], [address], 04/02/2024 06:16:56 03/31/19 04/01/2024 UA/M W/RFL X CULTU RE, ROUTI NE WBC esterase TRACE negati ve abnormal Not Available [facility] ([facility]) [address] [place], [address], 04/02/2024 06:16:56 03/31/19 25 04/01/2024 UA/M W/RFL X CULTU RE, ROUTI NE protein NEGATI VE negati ve/tra ce Not Available [facility] ([facility]) [address] [place], [address], 04/02/2024 06:16:56 03/31/19 25 04/01/2024 UA/M W/RFL X CULTU RE, ROUTI NE glucose NEGATI VE negati ve Not Available [facility] ([facility]) [address] [place], [address], 04/02/2024 06:16:56 03/31/19 25 04/01/2024 UA/M W/RFL X CULTU RE, ROUTI NE ketones NEGATI VE negati ve Not Available [facility] ([facility]) [address] [place], [address], 04/02/2024 06:16:56 03/31/19 25 04/01/2024 UA/M W/RFL X CULTU RE, ROUTI NE occult blood TRACE negati ve abnormal Not Available [facility] ([facility]) [address] [place], [address], 04/02/2024 06:16:56 03/31/19 25 04/01/2024 UA/M W/RFL X CULTU RE, ROUTI NE bilirubin NEGATI VE negati ve Not Available [facility] ([facility]) [address] [place], [address], 04/02/2024 06:16:56 03/31/19 25 04/01/2024 UA/M W/RFL X CULTU RE, ROUTI NE urobilinogen ,semi-qn 0.2 mg/dL 0.2-1. 0 Not Available [facility] ([facility]) [address] [place], [address], 04/02/2024 06:16:56 03/31/19 25 04/01/2024 UA/M W/RFL X CULTU RE, ROUTI NE nitrite, urine NEGATI VE negati ve Not Available [facility] ([facility]) [address] [place], [address], 04/02/2024 06:16:56 03/31/19 25 04/01/2024 UA/M W/RFL X CULTU RE, ROUTI NE microscopic examination SEE BELOW: Micro scopi c was indic ated and was perfo rmed. Not Available [facility] ([facility]) [address] [place], [address], 04/02/2024 06:16:56 03/31/19 25 04/01/2024 UA/M W/RFL X CULTU RE, ROUTI NE urinalysis reflex COMMEN T This speci men has refle xed to a Urine Cultu re. Not Available [facility] ([facility]) [address] [place], [address], 04/02/2024 06:16:56 03/31/19 25 04/01/2024 TSH TSH 2.070 uIU/m L 0.450- 4.500 Not Available [facility] ([facility]) [address] [place], [address], 04/02/2024 06:16:58 03/31/19 25 04/01/2024 CBC WITH DIFFE RENTI AL/PL ATELE T WBC 16.0 x10e3 /uL 3.4-10 .8 above high normal Not Available [facility] ([facility]) [address] [place], [address], 04/02/2024 06:16:59 01/08/20 25 04/01/2024 CBC WITH DIFFE RENTI AL/PL ATELE T RBC 5.33 x10e6 /uL 3.77-5 .28 above high normal Not Available [facility] ([facility]) [address] [place], [address], 04/02/2024 06:16:59 03/31/1904/01/2024 CBC WITH DIFFE RENTI AL/PL ATELE T hemoglobin 14.4 g/dL 11.1-1 5.9 Not Available [facility] ([facility]) [address] [place], [address], 04/02/2024 06:16:59 03/31/1904/01/2024 CBC WITH DIFFE RENTI AL/PL ATELE T hematocrit 43.1 % 34.0-4 6.6 Not Available [facility] ([facility]) [address] [place], [address], 04/02/2024 06:16:59 03/31/1904/01/2024 CBC WITH DIFFE RENTI AL/PL ATELE T MCV 81 fL 79-97 Not Available [facility] ([facility]) [address] [place], [address], 04/02/2024 06:16:59 03/31/1904/01/2024 CBC WITH DIFFE RENTI AL/PL ATELE T MCH 27.0 pg 26.6-3 3.0 Not Available [facility] ([facility]) [address] [place], [address], 04/02/2024 06:16:59 03/31/1904/01/2024 CBC WITH DIFFE RENTI AL/PL ATELE T MCHC 33.4 g/dL 31.5-3 5.7 Not Available [facility] ([facility]) [address] [place], [address], 04/02/2024 06:16:59 03/31/19 25 04/01/2024 CBC WITH DIFFE RENTI AL/PL ATELE T RDW 16.4 % 11.7-1 5.4 above high normal Not Available [facility] ([facility]) [address] [facility], [place], [address], 04/02/2024 06:16:59 03/31/19 25 04/01/2024 CBC WITH DIFFE RENTI AL/PL ATELE T platelets 347 x10e3 /uL 150-45 0 Not Available [facility] ([facility]) [address] [facility], [place], [address], 04/02/2024 06:16:59 03/31/19 25 04/01/2024 CBC WITH DIFFE RENTI AL/PL ATELE T neutrophils 37 % notest ab. Not Available [facility] ([facility]) [address] [facility], [place], [address], 04/02/2024 06:16:59 03/31/19 25 04/01/2024 CBC WITH DIFFE RENTI AL/PL ATELE T lymphs 54 % notest ab. Not Available [facility] ([facility]) [address] [facility], [place], [address], 04/02/2024 06:16:59 03/31/19 25 04/01/2024 CBC WITH DIFFE RENTI AL/PL ATELE T monocytes 7 % notest ab. Not Available [facility] ([facility]) [address] [facility], [place], [address], 04/02/2024 06:16:59 03/31/19 25 04/01/2024 CBC WITH DIFFE RENTI AL/PL ATELE T eos 2 % notest ab. Not Available [facility] ([facility]) [address] [facility], [place], [address], 04/02/2024 06:16:59 03/31/19 25 04/01/2024 CBC WITH DIFFE RENTI AL/PL ATELE T basos 0 % notest ab. Not Available [facility] ([facility]) [address] [place], [address], 04/02/2024 06:16:59 03/31/19 25 04/01/2024 CBC WITH DIFFE RENTI AL/PL ATELE T neutrophils (absolute) 5.9 x10e3 /uL 1.4-7. 0 Not Available [facility] ([facility]) [address] [place], [address], 04/02/2024 06:16:59 03/31/1904/01/2024 CBC WITH DIFFE RENTI AL/PL ATELE T lymphs (absolute) 8.6 x10e3 /uL 0.7-3. 1 above high normal Not Available [facility] ([facility]) [address] [place], [address], 04/02/2024 06:16:59 03/31/1904/01/2024 CBC WITH DIFFE RENTI AL/PL ATELE T monocytes(ab solute) 1.1 x10e3 /uL 0.1-0. 9 above high normal Not Available [facility] ([facility]) [address] [place], [address], 04/02/2024 06:16:59 03/31/1904/01/2024 CBC WITH DIFFE RENTI AL/PL ATELE T eos (absolute) 0.3 x10e3 /uL 0.0-0. 4 Not Available [facility] ([facility]) [address] [place], [address], 04/02/2024 06:16:59 03/31/1904/01/2024 CBC WITH DIFFE RENTI AL/PL ATELE T baso (absolute) 0.1 x10e3 /uL 0.0-0. 2 Not Available [facility] ([facility]) [address] [place], [address], 04/02/2024 06:16:59 03/31/19 25 04/01/2024 CBC WITH DIFFE RENTI AL/PL ATELE T immature granulocytes 0 % notest ab. Not Available [facility] ([facility]) [address] [facility], [place], [address], 04/02/2024 06:16:59 03/31/19 25 04/01/2024 CBC WITH DIFFE RENTI AL/PL ATELE T immature grans (abs) 0.0 x10e3 /uL 0.0-0. 1 Not Available [facility] ([facility]) [address] [place], [address], 04/02/2024 06:16:59 03/31/1904/02/2024 URINE CULTU RE, ROUTI NE urine culture, routine Final report Not Available [facility] ([facility]) [address] [place], [address], 04/02/2024 06:17:00 03/31/1904/02/2024 URINE CULTU RE, MELISSAI NE result 1 No growth Not Available [facility] ([facility]) [address] [place], [address], 04/02/2024 06:17:00 03/31/1904/01/2024 TRIIO DOTHY GRETEL E (T3), FREE triiodothyro nine (T3), free 2.9 pg/mL 2.0-4. 4 Not Available [facility] ([facility]) [address] [place], [address], 04/02/2024 06:17:01 03/31/1904/01/2024 T4,FR EE(DI RECT) T4,free(dire ct) 1.14 NG/dL 0.82-1 .77 Not Available [facility] ([facility]) [address] [place], [address], 04/02/2024 06:17:02 06/10/19 25 06/10/2024 CBC WITH DIFFE RENTI AL/PL ATELE T WBC 14.4 x10e3 /uL 3.4-10 .8 above high normal Not Available [facility] ([facility]) [address] [facility], [place], [address], 06/10/2024 07:07:51 06/10/19 25 06/10/2024 CBC WITH DIFFE RENTI AL/PL ATELE T RBC 4.81 x10e6 /uL 3.77-5 .28 Not Available [facility] ([facility]) [address] [facility], [place], [address], 06/10/2024 07:07:51 06/10/19 25 06/10/2024 CBC WITH DIFFE RENTI AL/PL ATELE T hemoglobin 13.1 g/dL 11.1-1 5.9 Not Available [facility] ([facility]) [address] [facility], [place], [address], 06/10/2024 07:07:51 06/10/19 25 06/10/2024 CBC WITH DIFFE RENTI AL/PL ATELE T hematocrit 40.2 % 34.0-4 6.6 Not Available [facility] ([facility]) [address] [facility], [place], [address], 06/10/2024 07:07:51 06/10/19 25 06/10/2024 CBC WITH DIFFE RENTI AL/PL ATELE T MCV 84 fL 79-97 Not Available [facility] ([facility]) [address] [place], [address], 06/10/2024 07:07:51 06/10/19 25 06/10/2024 CBC WITH DIFFE RENTI AL/PL ATELE T MCH 27.2 pg 26.6-3 3.0 Not Available [facility] ([facility]) [address] [place], [address], 06/10/2024 07:07:51 06/10/19 25 06/10/2024 CBC WITH DIFFE RENTI AL/PL ATELE T MCHC 32.6 g/dL 31.5-3 5.7 Not Available [facility] ([facility]) [address] [facility], [place], [address], 06/10/2024 07:07:51 06/10/19 25 06/10/2024 CBC WITH DIFFE RENTI AL/PL ATELE T RDW 16.8 % 11.7-1 5.4 above high normal Not Available [facility] ([facility]) [address] [facility], [place], [address], 06/10/2024 07:07:51 06/10/19 25 06/10/2024 CBC WITH DIFFE RENTI AL/PL ATELE T platelets 313 x10e3 /uL 150-45 0 Not Available [facility] ([facility]) [address] [facility], [place], [address], 06/10/2024 07:07:51 06/10/19 25 06/10/2024 CBC WITH DIFFE RENTI AL/PL ATELE T neutrophils 29 % notest ab. Not Available [facility] ([facility]) [address] [facility], [place], [address], 06/10/2024 07:07:51 06/10/19 25 06/10/2024 CBC WITH DIFFE RENTI AL/PL ATELE T lymphs 62 % notest ab. Not Available [facility] ([facility]) [address] [facility], [place], [address], 06/10/2024 07:07:51 06/10/19 25 06/10/2024 CBC WITH DIFFE RENTI AL/PL ATELE T monocytes 6 % notest ab. Not Available [facility] ([facility]) [address] [facility], [place], [address], 06/10/2024 07:07:51 06/10/19 25 06/10/2024 CBC WITH DIFFE RENTI AL/PL ATELE T eos 3 % notest ab. Not Available [facility] ([facility]) [address] [place], [address], 06/10/2024 07:07:51 06/10/19 25 06/10/2024 CBC WITH DIFFE RENTI AL/PL ATELE T basos 0 % notest ab. Not Available [facility] ([facility]) [address] [place], [address], 06/10/2024 07:07:51 06/10/19 25 06/10/2024 CBC WITH DIFFE RENTI AL/PL ATELE T neutrophils (absolute) 4.2 x10e3 /uL 1.4-7. 0 Not Available [facility] ([facility]) [address] [place], [address], 06/10/2024 07:07:51 06/10/19 25 06/10/2024 CBC WITH DIFFE RENTI AL/PL ATELE T lymphs (absolute) 9.0 x10e3 /uL 0.7-3. 1 above high normal Not Available [facility] ([facility]) [address] [place], [address], 06/10/2024 07:07:51 06/10/19 25 06/10/2024 CBC WITH DIFFE RENTI AL/PL ATELE T monocytes(ab solute) 0.8 x10e3 /uL 0.1-0. 9 Not Available [facility] ([facility]) [address] [place], [address], 06/10/2024 07:07:51 06/10/19 25 06/10/2024 CBC WITH DIFFE RENTI AL/PL ATELE T eos (absolute) 0.4 x10e3 /uL 0.0-0. 4 Not Available [facility] ([facility]) [address] [place], [address], 06/10/2024 07:07:51 06/10/19 25 06/10/2024 CBC WITH DIFFE RENTI AL/PL ATELE T baso (absolute) 0.0 x10e3 /uL 0.0-0. 2 Not Available [facility] ([facility]) [address] [facility], [place], [address], 06/10/2024 07:07:51 06/10/19 25 06/10/2024 CBC WITH DIFFE RENTI AL/PL ATELE T immature granulocytes 0 % notest ab. Not Available [facility] ([facility]) [address] [facility], [place], [address], 06/10/2024 07:07:51 06/10/19 25 06/10/2024 CBC WITH DIFFE RENTI AL/PL ATELE T immature grans (abs) 0.0 x10e3 /uL 0.0-0. 1 Not Available [facility] ([facility]) [address] [facility], [place], [address], 06/10/2024 07:07:51 03/31/19 25 elect rocar diogr am No observ ation record ed. [facility] In-Office Order Internal Use Only DO Not Attach Compendium DO Not Attach Compendium, Do Not Delete/merge, [id number] 03/31/2024 15:51:19 03/31/19 25 03/31/2024 elect rocar diogr am No observ ation record ed. [facility] In-Office Order Internal Use Only DO Not Attach Compendium DO Not Attach Compendium, Do Not Delete/merge, [id number] 03/31/2024 16:33:43 04/19/19 25 04/19/2024 MRI, inter nal audit ory canal , w/wo contr ast No observ ation record ed. [facility] [address] [place], [address], 04/22/2024 15:03:07 04/19/19 25 MRI, inter nal audit ory canal , w/wo contr ast No observ ation record ed. [facility] (Imaging) [address], [place], [address], 04/22/2024 15:03:07 06/01/19 25 05/29/2024 MAMMO , scree nehemias, digit al, bilat eral No observ ation record ed. [facility] [address] [place], [address], 06/01/2024 09:43:56 06/11/19 25 05/29/2024 MAMMO , scree nehemias, digit al, bilat eral No observ ation record ed. [facility] Medical Records [address] [place], [address], 06/11/2024 09:59:46 Result Notes None recorded. Problems Name Problem SNOMED Code Status Onset Date Resolution Date Notes Provider Name and Address Organization Details Recorded Time Essential hypertensio n 93013278 Active 2024 Jess Simon [place], [place] [facility] 16:25:13 Fatigue 48281365 Active 2024 Jess Simon [place] [facility] 16:25:14 Bilateral tinnitus 0478058316578 Active 2024 Jess Simon [place] [facility] 16:25:14 Vertigo 021983327 Active 2024 Jess Simon [place] [facility] 16:25:15 History of malignant neoplasm of breast 854616785 Active 2024 Tawana Yanez MD Attn: Sylvia aguilar,[address] [facility], [place], [address], [place] [facility] 5 17:19:01 Obesity 321229405 Active 2024 Tawana Yanez MD Attn: Sylvia aguilar,[address] [facility], [place], [address], [place] [facility] 5 17:21:07 Dizziness 240749194 Active 2024 Tawana Yanez MD Attn: Sylvia aguilar,[address], [place], [address], [facility] - SI 5 17:21:08 Impacted cerumen in left ear 9693890794968 101 Active 2024 Tawana Yanez MD Attn: Sylvia aguilar,[address], [place], [address], [facility] - SI 5 17:21:27 Problem Notes None recorded. Procedures Surgical History Date Name Laterality Status Provider Name and Address Organization Details Recorded Time 03/24/19 20 subtotal thyroidectomy completed Mary Johnson [facility] 03/31/2024 15:08:50 03/24/19 18 lumpectomy of breast completed Mary Johnson [facility] 03/31/2024 15:09:19 03/24/19 09 cholecystectomy completed Mary Johnson [facility] 03/31/2024 15:08:26 03/24/18 92 Total hysterectomy completed Mary Johnson [facility] 03/31/2024 15:07:50 Imaging Results None recorded. Procedure Notes None recorded. Medical Equipment None Reported. Allergies Allergen ID Allergen Name Allergen Category Reaction Reaction Severity Criticality Documentation Date Start Date Code Code System Note Provider Name and Address Organization Details Recorded Time 18090630 Product containin g penicilli n (product) medicatio n dizziness Not available low 03/31/20242019 19523 8001 SNOMED JEREMIAH Choudhury [facility] 5 15:46:30 429141 Substance with sulfonami de structure and antibacte rial mechanism of action (substanc e) medicatio n hives Not available high 03/31/20242019 57274 8003 SNOMED unrec ogniz ed react ion (text : Urtic aria, code: 41571 001) (from exter nal sourc e) JEREMIAH Choudhury, [facility] 5 15:46:36 743292 Dilaudid medicatio n Not available Not available Not available 03/31/2024 09870 3 RxNorm JEREMIAH [place], [place] - [facility] 5 15:04:17 172930 hydromorp jayashree medicatio n dyspnea Not available high 04/28/20242019 3423 RxNorm JEREMIAH [place], [place] - [facility] 5 15:46:25 Medications Name Sig Start Date Stop Date Status Note LastModified by Organization Details LastModified Time cetirizine 10 mg tablet TAKE 1 TABLET BY MOUTH ONCE DAILY active Not Available Not Available No t Available metoprolol succinate ER 50 mg tablet,exte nded release 24 hr TAKE 1 TABLET BY MOUTH ONCE DAILY active Not Available Not Available No t Available venlafaxine 25 mg tablet Take 1 tablet 3 times a day by oral route. active Not Available Not Available No t Available omeprazole 40 mg capsule,del ayed release TAKE 1 CAPSULE BY MOUTH EVERY DAY active Not Available Not Available No t Available meclizine 25 mg tablet Take 1 tablet 3 times a day by oral route as needed, for vetigo. 2024 active Not Available Not Available Not Avai lable cephalexin 500 mg capsule 03/31 completed Not Available Not Available Not Available docusate sodium 100 mg capsule TAKE 1 CAPSULE BY MOUTH TWICE DAILY 03/31 completed Not Available Not Available Not Available levofloxaci n 750 mg tablet TAKE 1 TABLET BY MOUTH DAILY FOR 5 DAYS 03/31 completed Not Available Not Available Not Available methylpredn isolone 4 mg tablets in a dose pack FOLLOW PACKAGE DIRECTION S 03/31 completed Not Available Not Available Not Available fluticasone propionate 50 mcg/actuati on nasal spray,suspe nsion SHAKE LIQUID AND USE 1 SPRAY IN EACH NOSTRIL EVERY DAY active Not Available Not Available No t Available dicyclomine 10 mg capsule TAKE 1 CAPSULE BY MOUTH FOUR TIMES DAILY 03/31 completed Not Available Not Available Not Available spironolact one 50 mg tablet TAKE 1 TABLET BY MOUTH DAILY active Not Available Not Available No t Available metoclopram lonnie 10 mg tablet 03/31 completed Not Available Not Available Not Available nitrofurant oin monohydrate /macrocryst als 100 mg capsule TAKE 1 CAPSULE BY MOUTH EVERY 12 HOURS FOR 5 DAYS active Not Available Not Available No t Available Vitals Date Recorded Body height Body mass index (BMI) Body weight Heart rate Oxygen saturation Oxygen saturation in Arterial blood by Pulse oximetry Systolic blood pressure Diastolic blood pressure Provider Name and Address Organization Details Last Updated DateTime 5 170.18 cm 35.9 kg/m2 961964. 65 g 96 /min 98 % 98 % 140 mm[Hg] 90 mm[Hg] Mary Johnson MA [facility] 5 15:03:13 Date Recorded Body height Body mass index (BMI) Body weight Heart rate Oxygen saturation Oxygen saturation in Arterial blood by Pulse oximetry Systolic blood pressure Diastolic blood pressure Provider Name and Address Organization Details Last Updated DateTime 5 170.18 cm 35.9 kg/m2 890298. 65 g 89 /min 99 % 99 % 128 mm[Hg] 76 mm[Hg] Mary Johnson MA [facility] 5 15:46:14 Date Recorded Body height Body mass index (BMI) Body weight Heart rate Oxygen saturation Oxygen saturation in Arterial blood by Pulse oximetry Systolic blood pressure Diastolic blood pressure Provider Name and Address Organization Details Last Updated DateTime 5 170.18 cm 35.9 kg/m2 712238. 09 g 82 /min 98 % 98 % 142 mm[Hg] 64 mm[Hg] Annemarie Wade MA [facility] SI 5 11:23:13 Social History Question Answer Notes LastModified by Organizat ion Details LastModified Time Tobacco Smoking Status Former Smoker Mary Johnson MA [facility] 03/31/2024 15:07:08 Do You Have An Advance Directive? No Information not available 03/31/2024 Are You Blind Or Do You Have Difficulty Seeing? No Information not available 03/31/2024 What Is Your Level Of Caffeine Consumption? Occasional Information not available 03/31/2024 In The 14 Days Before Symptom Onset, Have You Had Close Contact With A Laboratory-confir med COVID-19 While That Case Was Ill? No Information not available 03/31/2024 In The 14 Days Before Symptom Onset, Have You Had Close Contact With A Person Who Is Under Investigation For COVID-19 While That Person Was Ill? No Information not available 03/31/2024 Have You Been To An Area Known To Be High Risk For COVID-19? No Information not available 03/31/2024 Are You Deaf Or Do You Have Serious Difficulty Hearing? No Information not available 03/31/2024 Are There Any Guns Present In Your Home? No Information not available 03/31/2024 What Was The Date Of Your Most Recent Tobacco Screening? 08/03/2024 Information not available 08/03/2024 Do You Use Your Seat Belt Or Car Seat Routinely? Yes Information not available 03/31/2024 Do You Have Smoke And Carbon Monoxide Detectors In Your Home? Yes Information not available 03/31/2024 How Much Tobacco Do You Smoke? No Information not available 03/31/2024 Do You Use Sunscreen Routinely? No Information not available 03/31/2024 Has Tobacco Cessation Counseling Been Provided? No Information not available 08/03/2024 On What Date Was Tobacco Cessation Counseling Provided? 08/03/2024 Information not available 08/03/2024 How Many Years Have You Smoked Tobacco? 12 Information not available 04/01/2024 Sex: Female Functional Status Question Answer Note LastModified by Organizat ion Details LastModified Time Do you use any illicit or recreational drugs? No Information not available 03/31/2024 Do you or have you ever used any other forms of tobacco or nicotine? No Information not available 03/31/2024 What is your level of alcohol consumption? Occasional Information not available 03/31/2024 Are you able to care for yourself? Yes Information n ot available 03/31/2024 Mental Status None recorded. Family History Relationship Description Onset Age of this Age Resolved Age Notes LastModified by Organization Details LastModified Time Mother Family history of breast cancer gwardma Not available 2024 16:42:25 Mother Hypertensive disorder gwardma Not available 2024 16:42:34 Medical History Condition Response High Blood Pressure Y Acid Reflux (GERD) Y Cancer Y Thyroid Problems Y Depression Y Allergies Y Gynecological HistoryNo gynecological history recorded. Obstetrics History GPAL:G 0 P 0 0 0 0 Immunizations Vaccine Type Date Status Note Provider Nam e and Address Organization Details Recorded Time Influenza, MDCK, quadrivalent, PF 04/01/2019 completed Not Available [facility] 11:12:26 Past Encounters Encounter ID Performer Location Encounter Start Date Encounter Closed Date Diagnosis/Indication Diagnosis SNOMED-CT Code Diagnosis ICD10 Code Diagnosis Note [id number] Tawana Yanez MD [facility] (Adult Med) [address] [place] [phone] 03/31/2024 14:43:21 03/31/2024 16:22:19 Body mass index 30+ - obesity 637402648 Z68.35 Obesity 091946230 E66.9 Dizziness 355360810 R42 Vertigo 589747807 R42 Essential hypertension 04019840 I10 Fatigue 60696143 R53.83 Bilateral tinnitus 04865 53623 102 H93.13 History of malignant neoplasm of breast 767368897 Z85.3 Impacted c erumen in left ear 2664207095 829311 H61.22 [id number] Tawana Yanez MD [facility] (Adult Med) [address] [place] [phone] 04/28/2024 15:37:39 04/28/2024 16:26:01 Body mass index 30+ - obesity 872300453 Z68.35 Obesity 531248432 E66.9 Esophageal dysphagia 408 94335 R13.19 Seasonal allergy 5098582 04 J30.2 sh Bilateral tinnitus 61359 92383 102 H93.13 Essential hypertension 39230443 I10 Acid reflux 685292551 K2 1.9 [id number] Tawana Yanez MD [facility] (Adult Med) [address] [place] [phone] 08/03/2024 11:11:32 08/03/2024 12:00:40 Essential hypertension 80636218 I10 Obese class II 923905221 1 20261 E66.812 Vertigo 679433728 R42 Health Concerns Section Related Observation LastModified by Organization Detai ls LastModified Time None Recorded Concern Status LastModified by Organization Details LastModified Time None Recorded Advance Directives Directive N: Payers Encounter Date Sequence Insurance Name Policy Number Policy Kuhn Covered Member ID Kuhn Member ID Guarantor Name 03/31/2024 1 [employer] (HMO) Fariba Kaplan [id number] Fariba Kaplan 04/28/2024 1 [employer] (HMO) Fariba Kaplan [id number] Fariba Kaplan 08/03/2024 1 [employer] - GOLD PLUS (MEDICARE REPLACEMENT/A DVANTAGE - HMO) Fariba Kaplan [id number] Fariba Kaplan Notes Date Note Type Note Provider Name and Address Organization Details Recorded Time 03/31/2024 text/html 64-year-old with a past medical history of hypertension and GERD , breast cancer on the right 2018 lumpectomy in [facility] with XRT who comes in for a couple of reasons 1. 4-6 weeks of some dizziness and headache maybe some vertigo associated with some fatigue no blurred vision no fever chills no travel. The regards to hypertension says she has been taking her medication GERD has been stable with no flare-ups occasionally she may have some right upper quadrant discomfort but it is not a consistent feature. Medications omeprazole 40 mg metoprolol succinate 50 mg daily spironolactone 50 mg daily. Allergies she says that penicillin causes her to faint sulfa gives hives Dilaudid nausea and vomiting.surgeries breast cancer 2018 had a lump right lumpectomy in [facility] cholecystectomy hysterectomy partial thyroidectomy for non cancer causing family history mother age 63 breast cancer father she is not sure of a brother with thyroid cancerrefuses COVID pneumonia and shingles shots not sure when her last flu shot was she thinks it was 2 years ago. 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 Rhinitis type symptoms are bothering her as well Tawana Yanez MD Attn: Accounting[address] [facility], [place], [address], [place] [facility] 05/02/2024 17:24:28 08/03/2024 text/html Follow up of med ical problems her vertigo is a little bit better she did see Neurology who felt that she had migraines as well as some superimposed vertigo and they started her on venlafaxine her blood pressure is a little bit on the upper limits of normal today but her son has been involved in a motor vehicle accident and she is really worried about that. Rhinitis seems to be doing fine leukocytosis has persistent she has been in follow up with Hematology Oncology and she is worried about diagnosis they are even though they are just going to be monitoring her counts every 6 months for now. 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
--- OUTSIDE RECORDS SUMMARY | 2024-08-31 01:08 | XMS_ITS | Clinical Summary ---
Author Organization [facility] Address [address] [place] [address] Care Team Providers Care Printer Slotter Feeder Name Role Phone Phil Puckett MD Primary Care Prov ider Source Comments [facility],non-owned Affiliates and Associated Physician Practices is amultiple site organization consisting of ambulatory clinics and hospital sitesin [place], [place], [place] and [place]. This disclosure is being madepursuant to the Care Everywhere program and may not contain all information available regarding this patient. Last updated 17.[facility] Allergies Active Allergy Reactions Criticality Noted Date Comments Hydromorphone Shortness of Breath High 01/14/2020 Penicillins Dizziness Low 09/29/2019 Sulfur Urticaria Medium 09/29/2019 Medications * Be aware that medications may not be up to date on this document. Alwaysverify current medications with the patient. GAVILYTE-G 236 g solution PLEASE SEE ATTACHED FOR DETAILED DIRECTIONS 0 Active oxyCODONE, immediate release, (ROXICODONE) 5 MG tablet Take 5 mg by mouth 0 Active [place]-3 Fatty Acids (KP FISH OIL) 1200 MG Take by mouth 2 times daily Active metoprolol succinate XL 24hr (TOPROL XL) 25 MG tablet Take 25 mg by mouth once daily 1 Active metoprolol succinate XL 24hr (TOPROL XL) 25 MG tablet Take 25 mg by mouth once daily Active Magnesium Citrate 2 times daily Active losartan (COZAAR) 50 MG tablet Take 100 mg by mouth once daily Active vitamin D3 (CHOLECALCIFERO L) 125 MCG (5000 UT) capsule Take 5,000 Units by mouth once daily Active calcium carbonate - vitamin D (CALTRATE + D) 600-800 MG-UNIT tablet Take 1 tablet by mouth once daily Active atenolol (TENORMIN) 25 MG tablet TK 1 T PO QD 0 Active Ascorbic Acid 500 MG 500 mg once daily Active amLODIPine (NORVASC) 5 MG tablet as directed Active Garlic 10 MG Take by mouth 2 times daily Active dicyclomine (Bentyl) 10 MG capsule Take 1 (one) capsule by mouth 4 times daily 120 capsule 4 Active metoclopramide (Reglan) 10 MG tablet Take 1 (one) tablet by mouth 3 times daily before meals 30 tablet 4 Active docusate sodium (Colace) 100 MG capsule Take 1 (one) capsule by mouth 2 times daily 60 capsule 1 4 Active Social History Tobacco Use Types Packs/Day Years Used Date Smoking Tobacco: Former Smokeless Tobacco: Never Tobacco Cessation:Counseling Given: No Alcohol Use Standard Drinks/Week Comments Never 0 (1 standard drink = 0.6 oz pur e alcohol) AUDIT-C Answer Date Recorded Q1: How often do you have a drink containing alc ohol? Never 05/31/2020 Average Number of Drinks Not on file 021 Q3: How often do you have si x or more drinks on one occasion? Never 05/31/2020 Comments Unknown Sex and Gender Information Value Date Recorded Sex Assigned at Not on file Legal Sex Female 6:22 AM WATER MAIN INSPECTOR Gender Identity Not on file Sexual Orientation Not on file Last Filed Vital Signs Vital Sign Reading Time Taken Comments Blood Pressure 160/67 04/16/2023 3:37 AM WATER MAIN INSPECTOR Pulse 65 04/16/2023 3:37 AM WATER MAIN INSPECTOR Temperature 36.2 C (97.1 F) 04/16/2023 3:37 AM WATER MAIN INSPECTOR Respiratory Rate 18 04/16/2023 3:37 AM WATER MAIN INSPECTOR Oxygen Saturation 100% 04/16/2023 3:37 AM WATER MAIN INSPECTOR Inhaled Oxygen Concentration - - Weight 97.5 kg (215 lb) 04/15/2023 9:34 PM WATER MAIN INSPECTOR Height 170.2 cm (5' 7) 04/15/2023 9:34 PM WATER MAIN INSPECTOR Body Mass Index 33.67 04/15/2023 9:34 PM WATER MAIN INSPECTOR Plan of Treatment Health Maintenance Due Date Last Done Comments BONE DENSITY TESTING 1960 COLOGUARD (AGES 45-75) - COLON CA SCREENING 1960 COLON MONITORING 1958 COLONOSCOPY - COLON CA SCREENING 1958 CT COLONOGRAPHY - COLON CA SCREENING 1960 Colorectal Cancer Screening 1960 FIT - COLON CA SCREENING 1958 FLEX SIG - COLON CA SCREENING 1958 HEPATITIS C SCREENING 02/03/1976 DTAP/TDAP/TD VACCINES (1 - Tdap) 1977 PNEUMOCOCCAL VACCINE 50+ (1 of 1 - PCV) 02/08/2008 ZOSTER VACCINE (1 of 2) 02/08/2008 MAMMOGRAM 11/30/2022 11/30/2020, 11/2020, 11/24/2019 COVID-19 VACCINE (1 - season) 2023 DEPRESSION SCREENING 03/24/2024 MEDICARE AWV CALENDAR YEAR 2024 INFLUENZA VACCINE (Season Ended) 2024 04/01/2019 SCREENING FOR DIABETES 04/15/2026 , 12/11/2021, 12/11/2021, Additional history exists LIPID TESTING 12/11/2026 12/11/2021, 05/28/2021 Respiratory Syncytial Virus (RSV) Vaccine Pt: or over 60 yrs (1 - 1-dose 75+ series) 2033 HEPATITIS B VACCINE Aged Out No longe r eligible based on patient's age to complete this topic HIB VACCINE Aged Out No longer eligi ble based on patient's age to complete this topic HPV VACCINE Aged Out No longer eligi ble based on patient's age to complete this topic MENINGOCOCCAL (Group B) VACCINE SHARED DECISION-MAKING Aged Out No longer eligible based on patient's age to complete this topic MENINGOCOCCAL GROUPS A/C/Y/W VACCINE Aged Out No longer eligible based on patient's age to complete this topic Procedures Procedure Name Priority Date/Time Associated Diagnosis Comments COMPREHENSIVE METABOLIC PANEL STAT 04/15/2023 10:39 PM WATER MAIN INSPECTOR from Last 3 Months or Most Recently Relevant to Health Maintenance Results * (ABNORMAL) COMPREHENSIVE METABOLIC PANEL (04/15/2023 10:39 PM WATER MAIN INSPECTOR) BUN 14 7 - 26 mg/dL 04/15/2023 11:52 PM [facility] Creatinine 0.98(H) 0.56 - 0.96 mg/dL 04/15/2023 11:52 PM [facility] Sodium 139 136 - 145 mmol/L 04/15/2023 11:52 PM [facility] Potassium 3.6 3.5 - 4.5 mmol/L 04/15/2023 11:52 PM [facility] Chloride 106 98 - 107 mmol/L 04/15/2023 11:52 PM [facility] CO2 24 22 - 29 mmol/L 04/15/2023 11:52 PM [facility] Glucose 112 70 - 115 mg/dL 04/15/2023 11:52 PM [facility] Calcium 10.0 8.4 - 10.2 mg/dL 04/15/2023 11:52 PM [facility] Protein Total 8.3 6.0 - 8.3 g/dL 04/15/2023 11:52 PM [facility] Albumin 3.9 3.4 - 5.0 g/dL 04/15/2023 11:52 PM [facility] Bilirubin Total 0.5 0.2 - 1.2 mg/dL 04/15/2023 11:52 PM [facility] Alkaline Phosphatase 61 40 - 150 U/L 04/15/2023 11:52 PM [facility] ALT 14 5 - 55 U/L 04/15/2023 11:52 PM [facility] AST 15 5 - 34 U/L 04/15/2023 11:52 PM [facility] Anion Gap 9 6 - 16 04/15/2023 11:52 PM [facility] BUN/Creatinine Ratio 14 7 - 23 04/15/2023 11:52 PM [facility] Osmolality Calculated 289 275 - 295 mOsm/kg 04/15/2023 11:52 PM [facility] Albumin/Globulin Ratio 0.9(L) 1.1 - 2.3 04/15/2023 11:52 PM [facility] eGFR by CKD-EPI 64(L) >=90 mL/min/1.7 3 m2 04/15/2023 11:52 PM [facility] Blood BLOOD SPECIMEN / Unknown Venipuncture / Unknown 04/15/2023 10:39 PM WATER MAIN INSPECTOR 04/15/2023 11:24 PM WATER MAIN INSPECTOR us Shraddha Fuller [facility] CHEMISTRY [facility] Final Result [facility] [address] [place] [address], [facility] [phone] from Last 3 Months or Most Recently Relevant to Health Maintenance Insurance [place] [employer] [place] TO [facility] HEALTH [employer] MEDICARE ADV HMO & PPO Care Teams Printer Slotter Feeder Relationship Specialty Start Date End Date Phil Puckett MD [facility] [place] [place] [address] PCP - General 05/09/20
--- OUTSIDE RECORDS SUMMARY | 2024-08-31 01:08 | XMS_ITS | Clinical Summary ---
Author Organization 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 Sulfonamide Containing Compounds Hives High 09/29/2019 Substance with sulfonamide structure and antibacterial mechanism of action (substance) Penicillins Other (see Comments) 09/29/2019 Medications cetirizine (ZyrTEC) 10 MG Tablet Take 1 Tablet by mouth daily. 5 Active metoprolol Succinate (TOPROL-XL) 50 MG TABLET SR 24 HR Take 1 Tablet by mouth daily. 4 Active omeprazole (PriLOSEC) 40 MG CAPSULE DELAYED RELEASE Take 1 Capsule by mouth daily. 4 Active meclizine (ANTIVERT) 25 MG Tablet Take 25 mg by mouth 3 times daily as needed for Dizziness. 5 Active fluticasone (FLONASE) 50 MCG/ACT Suspension 1 [place] by Nasal route daily. 9 Active spironolactone (ALDACTONE) 50 MG Tablet Take 1 Tablet by mouth daily. 5 Active Quincy-3 Fatty Acids (KP Fish Oil) 1200 MG Capsule Take 216 mg by mouth. Active cephALEXin (KEFLEX) 500 MG Capsule Take 500 mg by mouth every 12 hours. 4 08/07/19 Discontinu ed(Med List Clean Up) docusate sodium 100 MG Capsule Take 100 mg by mouth 2 times daily. 08/07/19 Discontinu ed(Med List Clean Up) dicyclomine (BENTYL) 10 MG Capsule Take 10 mg by mouth 4 times daily. 08/07/19 Discontinu ed(Med List Clean Up) metoclopramide (REGLAN) 10 MG Tablet Take 10 mg by mouth. 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 Leukocytosis 07/02/2024 Encounters Date Type Department Care Team Description 08/06/2024 3:20 PM CDT [facility] [address] [place] [address] Gracy Luis August, PAC Monoclonal B-cell lymphocytosis (Primary Dx) Discharge Disposition: Discharged to home or Selfcare 08/06/2024 Travel 07/29/2024 Telephone [facility] [address] [place] [address] Gracy Luis PAC 07/23/2024 3:30 PM CDT Lab [facility] [address] [place] [address] Gracy Luis August, PAC Leukocytosis, unspecified type Discharge Disposition: Discharged to home or Selfcare 07/23/2024 Travel 07/13/2024 Telephone [facility] [address] [place] [address] Gracy Luis PAC 07/02/2024 3:40 PM CDT Initial Consult [facility] [address] [place] [address] Gracy Luis August, Leukocytosis, unspecified type (Primary Dx) Discharge Disposition: Discharged to home or Selfcare 07/02/2024 Travel from Last 3 Months Family History Medical History Relation Name Comments Thyroid Cancer Brother Hodgkin's Lymphoma Child 1 Hodgkin's Lymphoma Child 2 Breast Cancer Mother Hypertension Mother Relation Name Status Comments Brother Child 1 Alive Child 2 Alive Mother Social History Tobacco Use Types Packs/Day Years Used Date Smoking Tobacco: Former Cigarettes Q uit: 1990 Smokeless Tobacco: Never Tobacco Cessation:Counseling Given: Not Answered Alcohol Use Standard Drinks/Week Comments Never 0 (1 standard drink = 0.6 oz pur e alcohol) Comments No Sex and Gender Information Value Date Recorded Sex Assigned at Not on file Legal Sex Female 3:32 PM CDT Gender Identity Not on file Sexual Orientation Not on file Last Filed Vital Signs Vital Sign Reading Time Taken Comments Blood Pressure 166/89 08/06/2024 3:28 PM CDT Pulse 102 08/06/2024 3:28 PM CDT Temperature 36.5 C (97.7 F) 08/06/2024 3:28 PM CDT Respiratory Rate 18 08/06/2024 3:28 PM CDT Oxygen Saturation 98% 08/06/2024 3:28 PM CDT Inhaled Oxygen Concentration - - Weight 103 kg (227 lb) 08/06/2024 3:28 PM CDT Height - - Body Mass Index - - Plan of Treatment Upcoming Encounters Date Type Department Care Team (Late st Contact Info) Description 02/04/2025 3:30 PM 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 Lab [facility] [address] [place] [phone] Gracy Luis August, [facility] [address] [place] [address] Discharge Disposition: Discharged to home or Selfcare 02/11/2025 3:20 PM 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 Office Visit [facility] [address] [place] [address] Gracy Luis August, PAC [address] [place] [address] (work) Discharge Disposition: Discharged to home or Selfcare Health Maintenance Due Date Last Done Comments DEXA Bone Density 1960 Hepatitis C Virus (HCV) Screening 1960 TdaP Immunization 1960 Cologuard 02/08/2008 Immunochemical Fecal Occult Blood 02/08/2008 Pneumococcal Immunization (5 0+ years) (1 of 1 - PCV) 02/08/2008 Zoster Immunization (1 of 2) 02/08/2008 SARS-COV-2 Immunization (1 - 2023- season) 2023 Influenza Immunization ([place]as on Ended) 2024 04/01/2019 Mammogram 05/29/2025 05/29/2024, 11/30/2020, 11/24/2019 Colonoscopy 11/17/2029 11/18/2019 Colorectal Cancer Screening 11/17/2029 Respiratory Syncytial Virus (RSV) Immunization (Adult) (1 - 1-dose 75+ series) 2033 Hepatitis B Immunization Aged Out No longer eligible based on patient's age to complete this topic Human Papillomavirus (HPV) Immunization Aged Out No longer eligible b ased on patient's age to complete this topic Meningococcal Immunization (ACWY) Aged Out No longer eligible b ased on patient's age to complete this topic Rotavirus Immunization Aged Out No lo nger eligible based on patient's age to complete this topic Procedures Procedure Name Priority Date/Time Associated Diagnosis Comments MANUAL DIFFERENTIAL Routine 07/23/2024 3 :34 PM CDT Leukocytosis, unspecified type CBC WITH AUTO DIFFERENTIAL Routine 07/23/2024 3:34 PM CDT Leukocytosis, unspecified type PERIPHERAL BLOOD, FLOW CYTOMETRY Routine 07/23/2024 3:34 PM CDT Leukocytosis, unspecified type FOLIC ACID (FOLATE) Routine 07/23/2024 3 :34 PM CDT Leukocytosis, unspecified type VITAMIN B12 Routine 07/23/2024 3:34 PM CDT Leukocytosis, unspecified type FREE KAPPA & LAMBDA LIGHT CHAINS SERUM Routine 07/23/2024 3:34 PM CDT Leukocytosis, unspecified type RETICULOCYTE COUNT (RETIC) Routine 07/23/2024 3:34 PM CDT Leukocytosis, unspecified type LACTATE DEHYDROGENASE (LD) Routine 07/23/2024 3:34 PM CDT Leukocytosis, unspecified type IMMUNOFIXATION W/ ELECTROPHORESIS SERUM Routine 07/23/2024 3:34 PM CDT Leukocytosis, unspecified type ANTINUCLEAR ANTIBODY (JOHNY), TITER IF POS Routine 07/23/2024 3:34 PM CDT Leukocytosis, unspecified type COMPLETE BLOOD COUNT (CBC) WITH DIFF Routine 07/23/2024 3:34 PM CDT Leukocytosis, unspecified type JAK2 V617F MUTATION DETECTION, [place] JAK2B Routine 07/23/2024 3:34 PM CDT Leukocytosis, unspecified type from Last 3 Months Results * (ABNORMAL) MANUAL DIFFERENTIAL (07/23/2024 3:34 PM CDT) NEUTROPHILS % 52.0 47.0 - 73.0 % 07/23/2024 4:23 PM CDT [facility] LYMPHOCYTES % 44.0(H) 18.0 - 42.0 % 07/23/2024 4:23 PM CDT [facility] MONOCYTES % 1.0(L) 4.0 - 12.0 % 07/23/2024 4:23 PM CDT [facility] EOSINOPHILS % 3.0 0.0 - 5.0 % 07/23/2024 4:23 PM CDT [facility] NEUTROPHILS ABSOLUTE 7.21 1.60 - 7.70 10(3)/mcL 07/23/2024 4:23 PM CDT [facility] LYMPHOCYTES ABSOLUTE 6.10(H) 1.30 - 3.20 10(3)/mcL 07/23/2024 4:23 PM CDT [facility] MONOCYTES ABSOLUTE 0.14(L) 0.20 - 1.00 10(3)/mcL 07/23/2024 4:23 PM CDT [facility] EOSINOPHILS ABSOLUTE 0.42(H) 0.00 - 0.40 10(3)/mcL 07/23/2024 4:23 PM CDT [facility] REACTIVE LYMPHOCYTES 4 07/23/2024 4:23 PM CDT [facility] WBC MORPH STATUS Normal 07/24/19 4:23 PM CDT [facility] RBC MORPH STATUS Normal 07/24/19 4:23 PM CDT [facility] PLATELET STATUS Normal 4:23 PM CDT [facility] Blood Venipuncture / Unknown 07/23/2024 3:34 PM CDT 07/23/2024 3:34 PM CDT Gracy Storey [facility] HEMATOLOGY ORDERABLES Fin al Result [facility] [address] [place] [address] * (ABNORMAL) CBC WITH AUTO DIFFERENTIAL (07/23/2024 3:34 PM CDT) WBC 13.87(H) 4.00 - 12.00 10(3)/mcL 07/23/2024 4:23 PM CDT [facility] RBC 5.13 3.80 - 5.30 10(6)/mcL 07/23/2024 4:23 PM CDT [facility] HEMOGLOBIN (HGB) 13.0 12.0 - 15.8 g/dL 07/23/2024 4:23 PM CDT [facility] HEMATOCRIT (HCT) 41.6 36.0 - 47.0 % 07/23/2024 4:23 PM CDT [facility] MCV 81.1(L) 82.0 - 96.0 fL 07/23/2024 4:23 PM CDT [facility] MCH 25.3(L) 26.0 - 34.0 pg 07/23/2024 4:23 PM CDT [facility] MCHC 31.3 31.0 - 36.0 g/dL 07/23/2024 4:23 PM CDT [facility] PLATELET COUNT 298 140 - 440 10(3)/mcL 07/23/2024 4:23 PM CDT [facility] RDW 15.0 11.8 - 15.5 % 07/23/2024 4:23 PM CDT [facility] MPV 9.8 9.7 - 12.4 fL 07/23/2024 4:23 PM CDT [facility] NRBC PER 100 WBC 0 07/23/2024 4:23 PM CDT [facility] RESULTS ARE CONSISTENT WITH PERIPHERAL SMEAR REVIEW Yes 07/23/2024 4:23 PM CDT [facility] RBC MORPHOLOGY CONSISTENT WITH INDICES Yes 07/23/2024 4:23 PM CDT [facility] Blood Venipuncture / Unknown 07/23/2024 3:34 PM CDT 07/23/2024 3:34 PM CDT us Gracy Luis PAC HEMATOLOGY ORDERABLES Fin al Result [facility] [address] [place] [address] * PERIPHERAL BLOOD, FLOW CYTOMETRY (07/23/2024 3:34 PM CDT) FINAL DIAGNOSIS Peripheral blood, flow cytometric analysis: - A small CD5+ monoclonal B-cell population is detected (25% of lymphocytes). See comment 12:01 PM CDT [facility] at 1201 CDT Comment The low quantity of monoclonal B-cells (25% of absolute lymphocyte count) and the CLL-associated immunophenotype, is suggestive of monoclonal B-cell lymphocytosis. Clinical correlation may be considered to rule out significant lymphadenopathy, progression of absolute lymphocyte count and/or discordant cytogenetic characteristics. 12:01 PM T [facility] Specimen Source Received in an EDTA anticoagulated tube is 1mL peripheral blood. 12:01 PM CDT [facility] Microscopic Description Peripheral blood smear review shows atypical lymphocytes and smudge cells. Specimen processed and evaluated at [facility], [place], [place]. This document was completed utilizing speech recognition software. Grammatical errors, random word insertions, pronoun errors, and incomplete sentences are an occasional consequence of this system due to software limitations, ambient noise, and hardware issues. Any formal questions or concerns about the content, text or information contained within the body of this dictation should be directly addressed to the provider for clarification. 12:01 PM CDT [facility] Immunophenotypic Findings Flow cytometric analysis shows a monoclonal B-cell population. They express CD45, CD5, CD19, dim CD20, CD200, dim kappa surface light chain. CD38 is negative to dim. They are negative for CD10 and other markers tested. Blasts are not increased. Immunophenotypically nonspecific T-cells (CD4:CD8 = 1.0, some heterogeneity in signal intensity is seen for CD5 and CD7, negative for discrete loss of kaplan T-cell markers or expression of gamma delta) are also present. CELL POPULATIONS: 39% granulocytes, 3% monocytes, 57% lymphocytes (out of the lymphocytes, 25% is monoclonal B-cells), <1% blasts, remaining signals are attributed to debris. 12:01 PM T [facility] Phenotyping Markers Utilized Flow markers performed (17): CD2, CD3, CD4, CD5, CD7, CD8, CD10, CD19, CD20, CD34, CD38, CD45, CD56, CD200, kappa, lambda, TCR gamma/delta This test was developed and its performance characteristics determined by [facility]. It has not been cleared or approved by the U.S. Food and Drug Administration. 12:01 PM CDT [facility] Case Report Flow Cytometry Repor t Case: [id number] Authorizing Provider: Gracy Luis PAC Collected: 07/23/2024 03:34 PM Ordering Location: [facility] Received: 07/23/2024 03:34 PM [facility] Pathologist: Alejandro Brennan MD Specimen: Blood 12:01 PM CDT [facility] Blood BLOOD SPECIMEN / Unknown Venipuncture / Unknown 07/23/2024 3:34 PM CDT 07/23/2024 3:34 PM CDT Gracy Luis PAC PATHOLOGY/CYTOLOGY ORDERA BLES Final Result [facility] [address] [place] [address], * JAK2 V617F MUTATION DETECTION, [place] JAK2B (07/23/2024 3:34 PM CDT) JAK2 RESULT see interpretation 2:23 PM CDT [facility] JAK2 V617F MUTATION DETECTION SEE NOTE 2:23 PM CDT [facility] Comment: Peripheral blood, JAK2 V617F mutation analysis: Negative for JAK2 V617F. A negative [id number] test result does not exclude the possibility of a myeloproliferative neoplasm (MPN). If clinical suspicion is high for primary myelofibrosis (PMF) or essential thrombocythemia (ET), consider additional testing for CALR with reflex to MPL (test ID: [id number]). If clinical suspicion is high for polycythemia vera, the test JAK2 Exon 12 and Other Non-V617F Mutational Detection (test ID: JAKXB or JAKXM) could be considered. Clinicopathologic correlation is recommended for a definitive diagnosis. Signing Pathologist: Lisseth Carbajal M.D. ADDITIONAL INFORMATION Method summary - JAK2 V617F analysis: Quantitative, allele-specific polymerase chain reaction (PCR) assay was performed using extracted genomic DNA to evaluate for the point mutation causing JAK2 V617F. The analytic sensitivity of this assay has been determined at 0.06% (see [facility] Interpretive Handbook for method details). This test was developed and its performance characteristics determined by [facility] in a manner consistent with CLIA requirements. This test has not been cleared or approved by the U.S. Food and Drug Administration. Test Performed by: [facility] - [address] [address] Visual Merchandising Associate: Lukas Khan Ph.D.; CLIA# [id number] Blood Venipuncture / Unknown 07/23/2024 3:34 PM CDT 07/23/2024 3:34 PM CDT [facility] SEND OUT GENETIC Emerald l Result [facility] US * (ABNORMAL) FREE KAPPA & LAMBDA LIGHT CHAINS SERUM (07/23/2024 3:34 PM CDT) Free Black Diamond Lt Chn 24.30(H) 3.30 - 19.40 mg/L 07/26/2024 9:12 AM CDT [facility] Free Lambda Lt Chn 14.63 5.71 - 26.30 mg/L 07/26/2024 9:12 AM CDT [facility] free demar banuelos ratio 1.66(H) 0.26 - 1.65 07/26/2024 9:12 AM CDT [facility] Blood Venipuncture / Unknown 07/23/2024 3:34 PM CDT 07/23/2024 3:34 PM CDT [facility] PAC CHEMISTRY ORDERABLES Emerald l Result [facility] [address] [place] [address], [place] * VITAMIN B12 (07/23/2024 3:34 PM CDT) VITAMIN B12 586 213 - 816 pg/mL 07/23/2024 4:36 PM CDT [facility] Blood Venipuncture / Unknown 07/23/2024 3:34 PM CDT 07/23/2024 3:34 PM CDT [facility] PAC CHEMISTRY ORDERABLES Emerald l Result Performing Organization Address City/[facility]/ZIP Co de Phone Number [facility] [address] [place] [address] * RETICULOCYTE COUNT (RETIC) (07/23/2024 3:34 PM CDT) Pathologist [facility] RETICULOCYTES 1.5 0.5 - 2.0 % 07/23/2024 3:46 PM CDT [facility] Blood Venipuncture / Unknown 07/23/2024 3:34 PM CDT 07/23/2024 3:34 PM CDT [facility] HEMATOLOGY ORDERABLES Fin al Result Performing Organization Address [facility] Co de Phone Number [facility] [address] [place] [address] * LACTATE DEHYDROGENASE (LD) (07/23/2024 3:34 PM CDT) Pathologist [facility] LDH 211 125 - 220 U/L 07/23/2024 4:06 PM CDT [facility] Blood Venipuncture / Unknown 07/23/2024 3:34 PM CDT 07/23/2024 3:34 PM CDT [facility] PAC CHEMISTRY ORDERABLES Emerald l Result Performing Organization Address City/[facility] Co de Phone Number [facility] [address] [place] [address] * (ABNORMAL) IMMUNOFIXATION W/ ELECTROPHORESIS SERUM (07/23/2024 3:34 PM CDT) TOTAL PROTEIN 7.2 6.0 - 8.0 g/dL 07/27/2024 2:34 PM CDT [facility] % ALBUMIN 51.5(L) 55.8 - 66.7 % 07/27/2024 2:34 PM CDT [facility] ALBUMIN SERUM 3.7 2.5 - 5.4 g/dL 07/27/2024 2:34 PM [facility] % ALPHA 1 GLOBULIN 3.4 2.9 - 4.9 % 07/27/2024 2:34 PM T [facility] ALPHA 1 0.2 0.2 - 0.4 g/dL 07/27/2024 2:34 PM CDT [facility] % ALPHA 2 GLOBULIN 11.1 7.1 - 11.8 % 07/27/2024 2:34 PM T [facility] ALPHA 2 0.8 0.5 - 1.0 g/dL 07/27/2024 2:34 PM [facility] % BETA 17.2(H) 8.4 - 13.1 % 07/27/2024 2:34 PM T [facility] BETA-GLOBULIN 1.2(H) 0.5 - 1.1 g/dL 07/27/2024 2:34 PM T [facility] % GAMMA GLOBULIN 16.8 11.1 - 18.8 % 07/27/2024 2:34 PM [facility] GAMMA 1.2 0.7 - 1.5 g/dL 07/27/2024 2:34 PM [facility] IMMUNOGLOBULIN G 1,300 552 - 1,631 mg/dL 07/27/2024 2:34 PM [facility] IMMUNOGLOBULIN A 329 69 - 517 mg/dL 07/27/2024 2:34 PM [facility] IMMUNOGLOBULIN M 69 33 - 293 mg/dL 07/27/2024 2:34 PM [facility] INTERPRETATION SERUM No abnormal protein band is detected by serum protein electrophoresis. Serum immunofixation electrophoresis is negative for monoclonal immunoglobulins. Reviewed by Ruth Coffman, Ph.D. 07/27/2024 2:34 PM [facility] A/G RATIO, SERUM 1.1 07/28/19 2:34 PM [facility] Blood Venipuncture / Unknown 07/23/2024 3:34 PM CDT 07/23/2024 3:34 PM CDT Narrative [facility] - 07/27/2024 2:34 PM CDT Reviewed by Janny Ya M.D. [facility] PAC CHEMISTRY ORDERABLES Emerald l Result [facility] [address] [place] [address], * FOLIC ACID (FOLATE) (07/23/2024 3:34 PM CDT) [facility] FOLATE 11.9 7.0 - 31.4 ng/mL 07/23/2024 4:36 PM CDT [facility] IS THE PATIENT REQUIRED TO BE FASTING? No 07/23/2024 4:36 PM CDT [facility] Blood Venipuncture / Unknown 07/23/2024 3:34 PM CDT 07/23/2024 3:34 PM CDT [facility] PAC CHEMISTRY ORDERABLES Emerald l Result Performing Organization Address [facility] Co de Phone Number [facility] [address] [place] [address] * (ABNORMAL) ANTINUCLEAR ANTIBODY (JOHNY), TITER IF POS (07/23/2024 3:34 PM CDT) Pathologist [facility] JOHNY SCREEN See titer results(A) Negative titer 07/26/2024 1:20 PM CDT [facility] JOHNY TITER 1:80(A) Negative, See comment, Not Applicable titer 07/26/2024 1:20 PM CDT [facility] Comment: Antinuclear autoantibodies detected by IFA at a 1:80 screening dilution of HEp-2 cells. Titers of 1:80 are of limited significance for patients over 50 years of age. JOHNY PATTERN HOMOGENOUS 07/26/2024 1:20 PM CDT [facility] Blood Venipuncture / Unknown 07/23/2024 3:34 PM CDT 07/23/2024 3:34 PM CDT us Gracy Luis PAC IMMUNOLOGY ORDERABLES Fin al Result 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
[2024-08-31 07:44] VITALS: BP 146/77; PULSE 76; RESP 18; TEMP 36.2; O2SAT 100
--- NOTE | 2024-08-31 07:54 | P.PNAN_ITS ---
Anes - Initial Pre Proc Eval Procedure: Operation Date: 08/31/24 09:00 Proposed Procedures p Esophagogastroduodenoscopy - Jesse Alicia MD Date/Time: 08/31/24 07:54 Surgeon: Jesse Alicia MD Pre Op Diagnosis: dysphagia Patient Data Age: 64 Gender: F Height: 1.7 m Weight: 102.6 kg Last Vital Signs Temp 36.2 C L 08/31/24 07:44 Pulse 76 08/31/24 07:44 Resp 18 08/31/24 07:44 BP 146/77 H 08/31/24 07:44 Pulse Ox 100 08/31/24 07:44 O2 Del Method Room Air 08/31/24 07:44 Allergies Allergy/AdvReac Type Severity Reaction Status Date / Time hydromorphone (From Dilaudid) Allergy Shakiness Verified 08/31/24 07:43 Penicillins Allergy Hallucinati Verified 08/31/24 07:43 ng Sulfa (Sulfonamide Allergy Hives Verified 08/31/24 07:43 Antibiotics) Home Medications ?Medication ?Instructions ?Recorded ?Confirmed ?Type cephalexin 500 mg capsule 500 mg PO Q12H 7 days #14 caps 02/27/24 08/24/24 Rx ascorbic acid (vitamin C) PO DAILY 08/24/24 History metoprolol succinate 50 mg 50 mg PO DAILY 08/24/24 08/24/24 History tablet,extended release 24 hr multivitamin (Daily Multi-Vitamin 1 tablet PO DAILY 08/24/24 08/24/24 History tablet) omega 1-lof-fwu-fish oil 1,000 mg 1 cap PO BID 08/24/24 08/24/24 History (120 mg-180 mg) capsule (Fish Oil) spironolactone 50 mg tablet 50 mg PO DAILY 08/24/24 08/24/24 History Patient hx anesthesia problems: none Family hx anesthesia problems: none Results Review: All pre-operative results and documents have been reviewed as part of the pre- operative evaluation. [facility] Past Medical History Medical History (Updated 08/31/24 @ 07:55 by Edy Rodriguez MD) HTN (hypertension) Breast cancer Surgical History Surgical History (Updated 08/31/24 @ 07:55 by Edy Rodriguez MD) S/P breast lumpectomy Social History Social History Living arrangements: with family Spiritual care concerns: No Anes - Eval Final PreProcedure Day of Procedure 08/31/24 07:54 Patient weight: obese Heart: regular rate and rhythm Lungs: clear to auscultation Airway: Mallampati scale class II Neurological: alert and oriented Last oral intake: >/= 8 hours ASA classification: III Emergent: no Anesthetic plan: proceed Anesthesia type and monitoring: general GIVS and standard monitoring Results Review: All pre-operative results and documents have been reviewed as part of the pre- operative evaluation. Informed Consent: The patient's anesthetic plan and its attendant risks and benefits were discussed with the patient/family/POA. Questions were solicited and answers provided to the satisfaction of the patient/family/POA.
[2024-08-31] MEDS: LACTATED RINGERS 1,000 ML 150 ML IV CONT (08:01)
--- NOTE | 2024-08-31 08:32 | PM.HPGS ---
History of Present Illness History of Present Illness Consent: Risks, benefits, and alternatives have been discussed and questions answered. Patient agrees to proceed with procedure. Chief complaint: dysphagia Narrative: Fariba Kaplan is a 64 year old female with epigastric discomfort after eating, had egd but more than 30 years ago Review of Systems Review of Systems: All systems reviewed & are unremarkable except as noted in HPI and below PMFSH Past Medical History Medical History (Updated 08/31/24 @ 08:33 by Jesse Alicia MD) Dysphagia HTN (hypertension) Breast cancer Surgical History Surgical History (Updated 08/31/24 @ 07:55 by Edy Rodriguez MD) S/P breast lumpectomy Social History Social History Living arrangements: with family Spiritual care concerns: No Meds Home Medications and Allergies Home Medications ?Medication ?Instructions ?Recorded ?Confirmed ?Type cephalexin 500 mg capsule 500 mg PO Q12H 7 days #14 caps 02/27/24 08/24/24 Rx ascorbic acid (vitamin C) PO DAILY 08/24/24 History metoprolol succinate 50 mg 50 mg PO DAILY 08/24/24 08/24/24 History tablet,extended release 24 hr multivitamin (Daily Multi-Vitamin 1 tablet PO DAILY 08/24/24 08/24/24 History tablet) omega 6-sqn-ixd-fish oil 1,000 mg 1 cap PO BID 08/24/24 08/24/24 History (120 mg-180 mg) capsule (Fish Oil) spironolactone 50 mg tablet 50 mg PO DAILY 08/24/24 08/24/24 History Allergies Allergy/AdvReac Type Severity Reaction Status Date / Time hydromorphone (From Dilaudid) Allergy Shakiness Verified 08/31/24 07:43 Penicillins Allergy Hallucinati Verified 08/31/24 07:43 ng Sulfa (Sulfonamide Allergy Hives Verified 08/31/24 07:43 Antibiotics) Vital Signs Vital Signs - 24 hr 08/31/24 07:44 Temperature 97.2 F L Pulse Rate 76 Respiratory Rate 18 Blood Pressure 146/77 H Pulse Oximetry 100 Oxygen Delivery Room Air Exam Const: General: comfortable and no acute distress HENMT: Face/Nose/Sinus: Normal nares present Eyes: General: appearance normal, both eyes and all related structures Neck: Neck: no JVD Resp: Auscultation: clear to auscultation bilaterally Cardio: Rate: regular rate Rhythm: regular rhythm GI: Inspection: non-distended GI Palp: Yes Soft to palpation Skin: General skin exam: normal color Neuro: General: gait normal Speech: normal speech Extrem: General: normal to inspection Psych: Mental Status: mental status grossly normal Assessment and Plan Assessment and plan (1) Dysphagia: Code(s): R13.10 - Dysphagia, unspecified Status: Acute Assessment and Plan: egd with bx
[2024-08-31] MEDS: BENZOCAINE (*SP) 60 ML SPRAY CAN (HURRICAINE) 1 SPRAY MUCOUS MEM (08:35)
--- NOTE | 2024-08-31 08:42 | S_PTH ---
PATIENT: Fariba Kaplan LOC: [facility]#:[id number] AGE/SX: 64/F ROOM: RE08/31/[address]: Jesse Alicia MD : 1960 BED: DIS: 08/31/2024 SPEC #: [id number] RECD: 08/31/24 09:16 STATUS: AR[place]IO REMartin #: [id number] PATRICK: 08/31/24 08:[address]: Jesse Alicia DEPT: [facility] Surgical RECD BY: Mikel Dillon ENTERED: 08/31/24 09:17 SP TYPE: Surgical OTHR DR: Carlos YanezMD Tissues: A - Gastric Biopsy B - Esophageal Biopsy Procedures: Hematoxylin and Eosin Stain Gross and Microscopic Level 4
[2024-08-31 08:48] VITALS: BP 115/66; PULSE 72; RESP 21; O2SAT 97
[2024-08-31 08:58] VITALS: BP 116/64; PULSE 73; RESP 22; O2SAT 100
[2024-08-31 09:08] VITALS: BP 128/71; PULSE 68; RESP 23; O2SAT 100
== END 2024-08-31 09:22 | disposition home or self-care (01) ==
PROVIDERS: PCP Internal Medicine; Visit Provider Internal Medicine Gastroenterology
PROC: 0DJ08ZZ Inspection of Upper Intestinal Tract, Via Natural or Artificial Opening Endoscopic (ICD-10-PCS; CPT 43239; principal; 2024-08-31 09:00)
DX: K21.00 Gastro-esophageal reflux disease with esophagitis, without bleeding (principal); K29.70 Gastritis, unspecified, without bleeding; R13.10 Dysphagia, unspecified; E66.9 Obesity, unspecified; Z68.35 Body mass index [BMI] 35.0-35.9, adult
CPT/HCPCS: 43239; 88305; J2003; J2704; J7120

== ENCOUNTER 2024-09-17 12:26 | Inpatient (IN) | payer MEDICARE, SELFPAY ==
[2024-09-17] VITALS (14 sets, daily range): BP systolic 123–160; BP diastolic 57–79; PULSE 59–75; RESP 14–23; TEMP 36.4–36.8; O2SAT 96–100; BMI 35.9
--- NOTE | ~2024-09-17 | XR_ITS ---
EXAM/PROCEDURE: XR chest 2V - 09/17/2024 13:22 CDT HISTORY: 64 years old Female with LT SIDED chest pain x4 DAYS TECHNIQUE: Two view(s) of the chest. COMPARISON: None available. FINDINGS: LUNGS/ PLEURA: No focal consolidation. No appreciable pneumothorax or large pleural effusion. HEART/ MEDIASTINUM: Heart appears normal in size. BONES: No acute osseous abnormality. OTHER: Visualized upper abdomen is unremarkable. IMPRESSION: No acute process. Reviewed, dictated and finalized at location A. IMPRESSION: No acute process.
--- NOTE | ~2024-09-17 | NM_ITS ---
EXAMINATION: NM stress w perf spect multi DATE: 09/20/2024 13:36 INDICATION: Chest pain TECHNIQUE: Rest images were obtained following intravenous administration of 10 mCi Tc99m tetrofosmin (Myoview). The patient performed an exercise activity. At peak exercise, 31 mCi Tc99m tetrofosmin (M yoview) was administered intravenously, and stress images were obtained. Data was reconstructed into short axis and horizontal and vertical long axis SPECT images. Gated SPECT images were also obtained. COMPARISON: None. FINDINGS: There is normal left ventricular perfusion without definite evidence of reversible or fixed perfusion abnormality to suggest ischemia or infarction. There is normal left ventricular chamber size, wall motion and ejection fraction. Left ventricular ejection fraction measures >70%. IMPRESSION: 1. Normal myocardial perfusion at rest and during stress. 2. Left ventricular ejection fraction measuring >70%. Reviewed, dictated and finalized at location B.
--- NOTE | 2024-09-17 12:27 | ECG_ITS ---
Test Date: 2024-09-17 12:34:46 Measurements Intervals [place] Rate: 72 P: 48 MI: 174 QRS: 11 QRSD: 89 T: 37 QT: 379 QTc: 417 Interpretive Statements SINUS RHYTHM VOLTAGE CRITERIA FOR LVH CONSIDER ANTERIOR INFARCT, AGE INDETERMINATE CONSIDER INFERIOR INFARCT, AGE INDETERMINATE BASELINE ARTIFACT- I, II, III, AVR, AVL, AVF ABNORMAL ECG No previous ECG available for comparison Electronically Signed On 09-17-2024 12:56:28 CDT by Jose Sidhu D.O.
--- NOTE | 2024-09-17 12:36 | ED.CHESTPAIN ---
HPI - Chest Pain General Chief Complaint: Chest Pain <Peggy Galvez APRN - Last Filed: 09/17/24 12:41> Stated Complaint: chest pain, headache, dizzy, legs weak <Peggy Galvez APRN - Last Filed: 09/17/24 12:41> Time Seen by Provider: 09/17/24 16:01 <Peggy Galvez APRN - Last Filed: 09/17/24 12:41> Focused HPI: Patient is a 64-year-old female who presents to the ER with complaints of weakness, dizziness, and chest pain that started ?a few days ago. She reports this morning the weakness worsened which is why she decided to come in for evaluation. Patient reports she has never experienced this before. She endorses a history of partial thyroidectomy and hypertension. Patient denies any shortness a breath, recent fevers, abdominal pain or back pain. GENERAL: Well-appearing, well-nourished, and in no acute distress. HEAD: Normocephalic, atraumatic. CHEST: Clear to auscultation. ?No respiratory distress. HEART: Regular rate and rhythm.? NEURO: ?Alert and oriented x3. Patient screened in triage and initial orders placed.? ?Additional care and disposition to be based upon?diagnostic testing and treatment. <Peggy Galvez APRN - Last Filed: 09/17/24 12:41> Source: patient, RN notes reviewed and old records reviewed <Nisa Diaz MD - Last Filed: 09/17/24 21:08> Mode of arrival: ambulatory <Nisa Diaz MD - Last Filed: 09/17/24 21:08> Limitations: no limitations <Nisa Diaz MD - Last Filed: 09/17/24 21:08> History of Present Illness HPI narrative: This is a 64 year old female with history of hypertension who presents for evaluation of chest pain. Patient reports that she has been having fatigue and palpitations for 2-3 weeks. She thinks this started when her metoprolol was changed to different formulary. She states that her heart felt like it was beating different and she also reports feeling tired. She also reports intermittent substernal chest that will occasionally radiate to her back or shoulder. She states her chest discomfort has been more noticeable over the past few days. She reports she has constant chest discomfort for past few days. She also reports some shortness of breath and dizziness. <Nisa Diaz MD - Last Filed: 09/17/24 21:08> MD complaint: chest pain <Nisa Diaz MD - Last Filed: 09/17/24 21:08> Related Data Home Medications: Home Medications ?Medication ?Instructions ?Recorded ?Confirmed ?Last Taken ?Type ascorbic acid (vitamin C) PO DAILY 08/24/24 Unknown History metoprolol succinate 50 mg 50 mg PO DAILY 08/24/24 08/24/24 Unknown History tablet,extended release 24 hr multivitamin (Daily Multi-Vitamin 1 tablet PO DAILY 08/24/24 08/24/24 Unknown History tablet) omega 7-eqo-aip-fish oil 1,000 mg 1 cap PO BID 08/24/24 08/24/24 Unknown History (120 mg-180 mg) capsule (Fish Oil) spironolactone 50 mg tablet 50 mg PO DAILY 08/24/24 08/24/24 Unknown History <Peggy Galvez, [employer] - Last Filed: 09/17/24 12:41> Allergies/Adverse Reactions: Allergies Allergy/AdvReac Type Severity Reaction Status Date / Time hydromorphone (From Dilaudid) Allergy Shakiness Verified 09/17/24 12:31 Penicillins Allergy Hallucinati Verified 09/17/24 12:31 ng Sulfa (Sulfonamide Allergy Hives Verified 09/17/24 12:31 Antibiotics) <Peggy Galvez APRN - Last Filed: 09/17/24 12:41> Review of Systems Constitutional: Constitutional: Reports fatigue <Nisa Diaz MD - Last Filed: 09/17/24 21:08> Cardiovascular: Cardiovascular: Reports chest pain and Reports radiating jaw, neck or arm pain <Nisa Diaz MD - Last Filed: 09/17/24 21:08> [facility] Past Medical History Medical History: Medical History Dysphagia HTN (hypertension) Breast cancer <Peggy Galvez APRN - Last Filed: 09/17/24 12:41> Surgical History Surgical History: Surgical History S/P breast lumpectomy <Peggy Galvez APRN - Last Filed: 09/17/24 12:41> Social History Social History: Social History (Updated 09/17/24 @ 21:03 by Nisa Diaz MD) Smoking status: Never smoker Living arrangements: with family Spiritual care concerns: No <Peggy Galvez APRN - Last Filed: 09/17/24 12:41> Exam Const: General: healthy appearing, no acute distress and alert <Nisa Diaz MD - Last Filed: 09/17/24 21:08> Nutritional Appearance: well nourished <Nisa Diaz MD - Last Filed: 09/17/24 21:08> Orientation/consciousness: patient oriented x3 <Nisa Diaz MD - Last Filed: 09/17/24 21:08> HENMT: Head: normal to inspection <Nisa Diaz MD - Last Filed: 09/17/24 21:08> Mouth: Yes Normal oral and palatal mucosa present, Yes lip normal and Yes moist mucous membranes <Nisa Diaz MD - Last Filed: 09/17/24 21:08> Eyes: EOM: EOMs intact bilaterally <Nisa Diaz MD - Last Filed: 09/17/24 21:08> Resp: Effort & Inspection: normal respiratory effort <Nisa Diaz MD - Last Filed: 09/17/24 21:08> Auscultation: clear to auscultation bilaterally <Nisa Diaz MD - Last Filed: 09/17/24 21:08> Cardio: Rate: regular rate <Nisa Diaz MD - Last Filed: 09/17/24 21:08> Rhythm: regular rhythm <Nisa Diaz MD - Last Filed: 09/17/24 21:08> Heart sounds: no murmurs <Nisa Diaz MD - Last Filed: 09/17/24 21:08> GI: GI Palp: Yes Soft to palpation, No Tenderness to palpation present (GI), No Guarding due to palpation present (GI) and No Rigid due to palpation <Nisa Diaz MD - Last Filed: 09/17/24 21:08> Auscultation: normal bowel sounds <Nisa Diaz MD - Last Filed: 09/17/24 21:08> Skin: General skin exam: normal color <Nisa Diaz MD - Last Filed: 09/17/24 21:08> Rashes: no rashes <Nisa Diaz MD - Last Filed: 09/17/24 21:08> Wounds: no wounds <Nisa Diaz MD - Last Filed: 09/17/24 21:08> Neuro: General: patient oriented x3, moves all extremities, no focal motor deficits and CN's II-XI intact bilaterally <Nisa Diaz MD - Last Filed: 09/17/24 21:08> Cranial nerves: Yes Nystagmus not present <Nisa Diaz MD - Last Filed: 09/17/24 21:08> Speech: normal speech <Nisa Diaz MD - Last Filed: 09/17/24 21:08> Extrem: General: normal to inspection, no clubbing, cyanosis or edema and no pedal edema <Nisa Diaz MD - Last Filed: 09/17/24 21:08> Psych: Mental Status: mental status grossly normal <Nisa Diaz MD - Last Filed: 09/17/24 21:08> Affect: normal affect <Nisa Diaz MD - Last Filed: 09/17/24 21:08> Attitude: cooperative <Nisa Diaz MD - Last Filed: 09/17/24 21:08> Course Course Emergency Course: PAtient presented to ER with chest pain. EKG, chest xray ordered in triage. Patient rate discomfort in chest 3/10 during evaluation. Nitroglycerin ordered and d dimer added. Patient with heart score of 4. at 1800 patient still pending d dimer to determine if CTA needed. Care turned over to Dr. Louis. I discussed this with patient as well. <Nisa Diza MD - Last Filed: 09/17/24 21:08> Reevaluation(s) Reevaluation #1: Dimer negative. CTA not indicated. Patient with resolution of chest pain following use of nitroglycerin. Pt heart score 4. Plan for admission with cardiology consult. Discussed and accepted by HEIKE Davis with hospitalist service. <Nuris Louis MD - Last Filed: 09/17/24 20:08> Date: 09/17/24 <Nuris Louis MD - Last Filed: 09/17/24 20:08> Time: 19:10 <Nuris Louis MD - Last Filed: 09/17/24 20:08> Vital Signs Vital signs: Vital Signs Temperature 97.6 F 09/17/24 12:27 Pulse Rate 75 09/17/24 12:27 Respiratory Rate 18 09/17/24 12:27 Blood Pressure 159/79 H 09/17/24 12:27 Pulse Oximetry 100 09/17/24 12:27 Oxygen Delivery Room Air 09/17/24 12:27 Temperature 97.6 F 09/17/24 12:27 Pulse Rate 63 09/17/24 16:09 Respiratory Rate 21 H 09/17/24 16:09 Blood Pressure 123/60 09/17/24 16:09 Pulse Oximetry 100 09/17/24 16:12 Oxygen Delivery Room Air 09/17/24 16:12 <Peggy Galvez APRN - Last Filed: 09/17/24 12:41> Vital Signs Temperature 97.6 F 09/17/24 12:27 Pulse Rate 75 09/17/24 12:27 Respiratory Rate 18 09/17/24 12:27 Blood Pressure 159/79 H 09/17/24 12:27 Pulse Oximetry 100 09/17/24 12:27 Oxygen Delivery Room Air 09/17/24 12:27 Temperature 97.6 F 09/17/24 12:27 Pulse Rate 63 09/17/24 16:09 Respiratory Rate 21 H 09/17/24 16:09 Blood Pressure 123/60 09/17/24 16:09 Pulse Oximetry 100 09/17/24 16:12 Oxygen Delivery Room Air 09/17/24 16:12 <Nisa Diaz MD - Last Filed: 09/17/24 21:08> Vital Signs Temperature 97.6 F 09/17/24 12:27 Pulse Rate 75 09/17/24 12:27 Respiratory Rate 18 09/17/24 12:27 Blood Pressure 159/79 H 09/17/24 12:27 Pulse Oximetry 100 09/17/24 12:27 Oxygen Delivery Room Air 09/17/24 12:27 Temperature 97.6 F 09/17/24 12:27 Pulse Rate 63 09/17/24 16:09 Respiratory Rate 21 H 09/17/24 16:09 Blood Pressure 123/60 09/17/24 16:09 Pulse Oximetry 100 09/17/24 16:12 Oxygen Delivery Room Air 09/17/24 16:12 <Nuris Louis MD - Last Filed: 09/17/24 20:08> MDM - Chest Pain Differential Diagnosis Differential diagnosis: Likely unstable angina pectoris, atypical chest pain, chest pain and biliary colic <Nisa Diaz MD - Last Filed: 09/17/24 21:08> Medical Records Data Attestation: I reviewed the patient's medical records. <Nisa Diaz MD - Last Filed: 09/17/24 21:08> Lab Data Attestation: I reviewed the patient's lab results. <Nuris Louis MD - Last Filed: 09/17/24 20:08> Result diagrams: 09/17/24 12:43 09/17/24 12:43 <Peggy Galvez APRN - Last Filed: 09/17/24 12:41> Labs: Lab Results 09/17/24 09/17/24 09/17/24 Range/Units 12:43 17:48 20:02 WBC 13.9 H (4.5-10.0) K/mm3 RBC 5.46 H (4.2-5.4) M/mm3 Hgb 13.5 (12.0-15.0) g/dL Hct 43.2 (37.0-47.0) % MCV 79.1 L (80-100) fl MCH 24.7 L (26-34) pg MCHC 31.3 L (32-36) g/dl RDW 15.1 H (11.5-14.5) % Plt Count 316 (150-375) k/mm3 MPV 9.5 (7.4-10.4) fl Immature Gran % (Auto) 0.2 (0-0.5) % Neut % (Auto) 33.8 L (45.5-73.1) % Lymph % (Auto) 58.8 H (18.3-44.2) % [place] % (Auto) 5.2 (2.6-8.5) % Eos % (Auto) 1.7 (0-4.4) % Baso % (Auto) 0.3 (0.2-1.2) % Lymph # (Auto) 8.20 H (0.9-3.2) K/mm3 [place] # (Auto) 0.7 H (0.1-0.6) K/mm3 Eos # (Auto) 0.2 (0-0.3) K/mm3 Baso # (Auto) 0.0 (0.0-0.1) K/mm3 Abs Immat Gran (auto) 0.03 (0.00-0.031) K/mm3 Absolute Neuts (auto) 4.7 (1.3-6.7) K/mm3 Absolute Nucleated RBC 0.000 (0.0-0.012) K/mm3 Band Neutrophils % Not Reportable Nucleated RBC % 0.0 (0.0-0.2) % Atypical Lymphocytes Present Platelet Estimate Adequate (Adequate) Schistocytes None seen PT 13.1 (11.1-14.7) Seconds INR 1.0 APTT 32.6 (22.3-36.8) Seconds D-Dimer 0.32 (<0.48) ug/mL Sodium 140 (137-145) mmol/L Potassium 4.1 (3.4-5.0) mmol/L Chloride 105 (98-107) mmol/L Carbon Dioxide 24 (22-30) mmol/L Anion Gap 11 (4-12) mmol/L BUN 7 D (7-17) mg/dL Creatinine 0.94 (0.7-1.0) mg/dL Estim Creat Clear Calc 63 ml/min Estimated GFR 60 (59 - ) Glucose 91 (65-110) mg/dL Calcium 9.5 (8.4-10.2) mg/dL Total Bilirubin 0.9 (0.2-1.3) mg/dL AST 27 (14-36) U/L ALT 18 (6-35) U/L Alkaline Phosphatase 59 (38-126) U/L Troponin I < 0.012 < 0.012 < 0.012 (0.000-0.034) ng/mL Total Protein 8.5 H (6.3-8.2) g/dL Albumin 4.5 (3.5-5.1) g/dL Lipase 127 (23-300) U/L <Peggy Galvez, [employer] - Last Filed: 09/17/24 12:41> Lab Results 09/17/24 09/17/24 09/17/24 Range/Units 12:43 17:48 20:02 WBC 13.9 H (4.5-10.0) K/mm3 RBC 5.46 H (4.2-5.4) M/mm3 Hgb 13.5 (12.0-15.0) g/dL Hct 43.2 (37.0-47.0) % MCV 79.1 L (80-100) fl MCH 24.7 L (26-34) pg MCHC 31.3 L (32-36) g/dl RDW 15.1 H (11.5-14.5) % Plt Count 316 (150-375) k/mm3 MPV 9.5 (7.4-10.4) fl Immature Gran % (Auto) 0.2 (0-0.5) % Neut % (Auto) 33.8 L (45.5-73.1) % Lymph % (Auto) 58.8 H (18.3-44.2) % [place] % (Auto) 5.2 (2.6-8.5) % Eos % (Auto) 1.7 (0-4.4) % Baso % (Auto) 0.3 (0.2-1.2) % Lymph # (Auto) 8.20 H (0.9-3.2) K/mm3 [place] # (Auto) 0.7 H (0.1-0.6) K/mm3 Eos # (Auto) 0.2 (0-0.3) K/mm3 Baso # (Auto) 0.0 (0.0-0.1) K/mm3 Abs Immat Gran (auto) 0.03 (0.00-0.031) K/mm3 Absolute Neuts (auto) 4.7 (1.3-6.7) K/mm3 Absolute Nucleated RBC 0.000 (0.0-0.012) K/mm3 Band Neutrophils % Not Reportable Nucleated RBC % 0.0 (0.0-0.2) % Atypical Lymphocytes Present Platelet Estimate Adequate (Adequate) Schistocytes None seen PT 13.1 (11.1-14.7) Seconds INR 1.0 APTT 32.6 (22.3-36.8) Seconds D-Dimer 0.32 (<0.48) ug/mL Sodium 140 (137-145) mmol/L Potassium 4.1 (3.4-5.0) mmol/L Chloride 105 (98-107) mmol/L Carbon Dioxide 24 (22-30) mmol/L Anion Gap 11 (4-12) mmol/L BUN 7 D (7-17) mg/dL Creatinine 0.94 (0.7-1.0) mg/dL Estim Creat Clear Calc 63 ml/min Estimated GFR 60 (59 - ) Glucose 91 (65-110) mg/dL Calcium 9.5 (8.4-10.2) mg/dL Total Bilirubin 0.9 (0.2-1.3) mg/dL AST 27 (14-36) U/L ALT 18 (6-35) U/L Alkaline Phosphatase 59 (38-126) U/L Troponin I < 0.012 < 0.012 < 0.012 (0.000-0.034) ng/mL Total Protein 8.5 H (6.3-8.2) g/dL Albumin 4.5 (3.5-5.1) g/dL Lipase 127 (23-300) U/L <Nisa Diaz MD - Last Filed: 09/17/24 21:08> Lab Results 09/17/24 09/17/24 09/17/24 Range/Units 12:43 17:48 20:02 WBC 13.9 H (4.5-10.0) K/mm3 RBC 5.46 H (4.2-5.4) M/mm3 Hgb 13.5 (12.0-15.0) g/dL Hct 43.2 (37.0-47.0) % MCV 79.1 L (80-100) fl MCH 24.7 L (26-34) pg MCHC 31.3 L (32-36) g/dl RDW 15.1 H (11.5-14.5) % Plt Count 316 (150-375) k/mm3 MPV 9.5 (7.4-10.4) fl Immature Gran % (Auto) 0.2 (0-0.5) % Neut % (Auto) 33.8 L (45.5-73.1) % Lymph % (Auto) 58.8 H (18.3-44.2) % [place] % (Auto) 5.2 (2.6-8.5) % Eos % (Auto) 1.7 (0-4.4) % Baso % (Auto) 0.3 (0.2-1.2) % Lymph # (Auto) 8.20 H (0.9-3.2) K/mm3 [place] # (Auto) 0.7 H (0.1-0.6) K/mm3 Eos # (Auto) 0.2 (0-0.3) K/mm3 Baso # (Auto) 0.0 (0.0-0.1) K/mm3 Abs Immat Gran (auto) 0.03 (0.00-0.031) K/mm3 Absolute Neuts (auto) 4.7 (1.3-6.7) K/mm3 Absolute Nucleated RBC 0.000 (0.0-0.012) K/mm3 Band Neutrophils % Not Reportable Nucleated RBC % 0.0 (0.0-0.2) % Atypical Lymphocytes Present Platelet Estimate Adequate (Adequate) Schistocytes None seen PT 13.1 (11.1-14.7) Seconds INR 1.0 APTT 32.6 (22.3-36.8) Seconds D-Dimer 0.32 (<0.48) ug/mL Sodium 140 (137-145) mmol/L Potassium 4.1 (3.4-5.0) mmol/L Chloride 105 (98-107) mmol/L Carbon Dioxide 24 (22-30) mmol/L Anion Gap 11 (4-12) mmol/L BUN 7 D (7-17) mg/dL Creatinine 0.94 (0.7-1.0) mg/dL Estim Creat Clear Calc 63 ml/min Estimated GFR 60 (59 - ) Glucose 91 (65-110) mg/dL Calcium 9.5 (8.4-10.2) mg/dL Total Bilirubin 0.9 (0.2-1.3) mg/dL AST 27 (14-36) U/L ALT 18 (6-35) U/L Alkaline Phosphatase 59 (38-126) U/L Troponin I < 0.012 < 0.012 < 0.012 (0.000-0.034) ng/mL Total Protein 8.5 H (6.3-8.2) g/dL Albumin 4.5 (3.5-5.1) g/dL Lipase 127 (23-300) U/L <Nuris Louis MD - Last Filed: 09/17/24 20:08> ECG Data EKG #1: Attestation: I personally reviewed and interpreted this ECG as follows: <Nuris Louis MD - Last Filed: 09/17/24 20:08> ECG completion date: 09/17/24 <Nuris Louis MD - Last Filed: 09/17/24 20:08> ECG completion time: 19:27 <Nuris Louis MD - Last Filed: 09/17/24 20:08> Prior ECG tracings: available for review <Nuris Louis MD - Last Filed: 09/17/24 20:08> Interpretation: No ST segment elevation, rate 66, VA interval normal, QRS narrow, QTC normal, no ST segment elevation, <Nuris Louis MD - Last Filed: 09/17/24 20:08> Discharge Plan Discharge Clinical Impression: Unstable angina pectoris <Peggy Galvez APRN - Last Filed: 09/17/24 12:41> Patient Disposition: Still a Patient <Peggy Galvez APRN - Last Filed: 09/17/24 12:41> Condition: Stable <Peggy Galvez APRN - Last Filed: 09/17/24 12:41> Patient Language: Mauritian <Peggy Galvez APRN - Last Filed: 09/17/24 12:41> Prescriptions: No Action cephalexin 500 mg capsule 500 mg PO Q12H 7 Days Qty: 14 0RF omega 3-cqr-atn-fish oil [Fish Oil] 1,000 (120-180) mg capsule 1 cap PO BID multivitamin [Daily Multi-Vitamin] Tablet 1 tablet PO DAILY ascorbic acid (vitamin C) PO DAILY metoprolol succinate 50 mg tablet extended release 24 hr 50 mg PO DAILY spironolactone 50 mg tablet 50 mg PO DAILY omeprazole 20 mg capsule,delayed release(DR/EC) 20 mg PO DAILY Qty: 30 1RF <Peggy Galvez APRN - Last Filed: 09/17/24 12:41> Follow-up/Referrals: Beau,MD Carlos [Primary Care Provider] - <Peggy Galvez APRN - Last Filed: 09/17/24 12:41> Quality HEART score for chest pain patients History: moderately suspicious <Nisa Diaz MD - Last Filed: 09/17/24 21:08> ECG: normal <Nisa Diaz MD - Last Filed: 09/17/24 21:08> Age: > or = to 65 years <Nisa Diaz MD - Last Filed: 09/17/24 21:08> Risk factors: 1 or 2 risk factors <Nisa Diaz MD - Last Filed: 09/17/24 21:08> Troponin: < or = to 1x normal limit <Nisa Diaz MD - Last Filed: 09/17/24 21:08> Heart score: 4 <Nisa Diaz MD - Last Filed: 09/17/24 21:08> 4 <Nuris Louis MD - Last Filed: 09/17/24 20:08>
[2024-09-17 12:56] LABS: Basophils Percent Auto 0.3 % (0.2-1.2); Eosinophils Absolute Auto 0.2 K/mm3 (0-0.3); Eosinophils Percent Auto 1.7 % (0-4.4); Hematocrit 43.2 % (37.0-47.0); Hemoglobin 13.5 g/dL (12.0-15.0); Immature Granulocyte Absolute 0.03 K/mm3 (0.00-0.031); Immature Granulocyte Percent A 0.2 % (0-0.5); Lymphocytes Percent Auto 58.8 % (18.3-44.2); Mean Corpuscular HGB Conc 31.3 g/dl (32-36); Mean Corpuscular Hemoglobin 24.7 pg (26-34); Mean Corpuscular Volume 79.1 fl (80-100); Mean Platelet Volume 9.5 fl (7.4-10.4); Monocytes Absolute Auto 0.7 K/mm3 (0.1-0.6); Monocytes Percent Auto 5.2 % (2.6-8.5); Neutrophils Absolute Auto 4.7 K/mm3 (1.3-6.7); Neutrophils Percent Auto 33.8 % (45.5-73.1); Platelet Count Result 316 k/mm3 (150-375); Red Blood Count 5.46 M/mm3 (4.2-5.4); Red Cell Distribution Width 15.1 % (11.5-14.5); White Blood Count 13.9 K/mm3 (4.5-10.0)
[2024-09-17 13:14] LABS: Alanine Aminotransferase 18 U/L (6-35); Albumin Level 4.5 g/dL (3.5-5.1); Alkaline Phosphatase 59 U/L (38-126); Anion Gap 11 mmol/L (4-12); Aspartate Amino Transferase 27 U/L (14-36); Bilirubin,Total 0.9 mg/dL (0.2-1.3); Blood Urea Nitrogen 7 mg/dL (7-17); Calcium 9.5 mg/dL (8.4-10.2); Carbon Dioxide 24 mmol/L (22-30); Chloride 105 mmol/L (98-107); Estimated CRCL calculation 63 ml/min; Estimated Glomerular Filt Rate 60; Glucose 91 mg/dL (65-110); Lipase 127 U/L (23-300); Potassium 4.1 mmol/L (3.4-5.0); Sodium 140 mmol/L (137-145); Total Protein 8.5 g/dL (6.3-8.2)
[2024-09-17 13:16] LABS: Partial Thromboplastin Time 32.6 Seconds (22.3-36.8); Prothrombin Time 13.1 Seconds (11.1-14.7)
[2024-09-17 13:19] LABS: Atypical Lymphocytes Present; Platelet Estimate Adequate (Adequate); Schistocytes None Seen
[2024-09-17 13:27] LABS: Troponin I < 0.012 ng/mL (0.000-0.034)
[2024-09-17] MEDS: ASPIRIN 81 MG CHEWABLE TABLET 324 MG PO (14:06)
[2024-09-17] MEDS: NITROGLYCERIN SL 0.4 MG TABLET SUBLINGUAL (16:44)
[2024-09-17 18:23] LABS: Troponin I < 0.012 ng/mL (0.000-0.034)
[2024-09-17 18:35] LABS: D Dimer 0.32 ug/mL (<0.48)
--- NOTE | 2024-09-17 19:06 | ECG_ITS ---
Test Date: 2024-09-17 19:27:08 Measurements Intervals [place] Rate: 66 P: 55 TN: 171 QRS: 6 QRSD: 90 T: 43 QT: 390 QTc: 409 Interpretive Statements SINUS RHYTHM VOLTAGE CRITERIA FOR LVH BASELINE ARTIFACT- I, II, AVR, AVL, AVF CONSIDER INFERIOR INFARCT, AGE INDETERMINATE ABNORMAL ECG Compared to ECG 09/17/2024 12:34:46 NO SIGNIFICANT CHANGE Electronically Signed On 09-18-2024 07:17:08 CDT by Jose Sidhu D.O.
[2024-09-17 20:38] LABS: Troponin I < 0.012 ng/mL (0.000-0.034)
--- NOTE | 2024-09-17 21:11 | P.HP_ITS ---
H&P: HPI History of Present Illness Date/Time: 09/17/24 21:00 Chief Complaint: Chest pain. Narrative: This is a very pleasant 64-year-old female with hypertension, gastroesophageal reflux disease, gastritis on recent EGD, and breast cancer in 2018 who presented to the emergency department via private vehicle with complaints of chest pain. A few days ago she tells me that she woke up and was feeling a bit short winded when walking around the house. She then went outside to water her plants and had to come back inside after about 10 minutes because she was still feeling short winded and she also began experiencing heaviness in the mid chest region as well as feelings of lightheadedness. She went inside to rest but her symptoms continued for at least 3 hours. She goes on to say that she has been increasi ngly fatigued and generally weak since that time. She continues to have intermittent episodes of the chest heaviness and shortness of breath although it is not constant. With further questioning she admits that she has been more fatigued over the last several weeks and had noticed that she was getting short of breath with exertion when normally she would not. She denies syncope, near syncope, pleuritic pain, palpitations, nausea, vomiting, bloating, belching, lower extremity edema, and calf pain. She had an abnormal EKG about 10 years ago and a cardiac catheterization thereafter which was reportedly clear. At the time my evaluation she is resting comfortably and has no complaints. In the ED: She was in a sinus rhythm with rate of 75 on arrival and a blood pressure 159/79 with an SpO2 of 100% on room air. Labs were significant for WBC count of 13.9 and a troponin of less than 0.012. EKG showed sinus rhythm with voltage criteria for LVH and possible age-indeterminate anterior inferior i nfarct. She was given sublingual nitroglycerin with resolution of chest discomfort. She is being admitted in this setting for close monitoring and Cardiology consultation. Review of Systems Review of Systems: 12 systems were reviewed and are negativ e except for as per HPI. FOR[facility]LY [facility] Past Medical History Medical History Psoriasis Cervical cancer (2000) Cancer of right breast (2018) status post lumpectomy and radiation therapy Gastroesophageal reflux disease Gastritis Hypertension Surgical History Surgical History (Updated 09/18/24 @ 00:37 by Jayne Davis PA-C) History of cholecystectomy History of partial thyroidectomy for a benign nodule History of partial hysterectomy for cervical cancer History of lumpectomy of right breast for right breast cancer Family History Family History Mother Breast cancer Hypertension Sibling Thyroid cancer Hyperlipidemia Hypertension Father Hypertension Rectal bleeding Son Hodgkins lymphoma Daughter Hodgkins lymphoma Congestive heart failure Sibling Hypertension Cerebrovascular accident Sibling Hypertension Sibling Lung cancer Social History Social History (Updated 09/18/24 @ 00:38 by Jayne Davis PA-C) Social History: Surrogate medical decision maker: Brent Kaplan, daughter. Code status: Full code. Smoking packs per day: 0.3 Smoking cigarettes per day: 6.0 Years smoked: 10 Smoking pack-years: 3.00 Smoking status: Former smoker Tobacco type: cigarettes Alcohol intake: never Substance use: never Substance use type: does not use Do You Feel Safe in your Home?: Yes Lack of Transportation: No Lack of Food: Never True Current Housing: I Have Housing Concerned About Future Housing: No Difficulty Paying Gas/Electric Bills: No Difficulty Paying for Meds: No Currently Unemployed: No Education: Trade/Vocational Certificate Difficulty w/ Childcare or Family Care: No Living arrangements: with family Spiritual care concerns: No Meds Home Medications and Allergies Home Medications ?Medication ?Instructions ?Recorded ?Confirmed ?Type ascorbic acid (vitamin C) 1 tablet PO DAILY 08/24/24 09/17/24 History metoprolol succinate 50 mg 50 mg PO DAILY 08/24/24 09/17/24 History tablet,extended release 24 hr multivitamin (Daily Multi-Vitamin 1 tablet PO HS 08/24/24 09/17/24 History tablet) omega 7-ord-qcw-fish oil 1,000 mg 1 cap PO BID 08/24/24 09/17/24 History (120 mg-180 mg) capsule (Fish Oil) spironolactone 50 mg tablet 50 mg PO HS 08/24/24 09/17/24 History omeprazole 20 mg capsule,delayed 20 mg PO DAILY #30 caps 08/31/24 09/17/24 Rx release fluticasone propionate 50 1 spray intranasal DAILY PRN 09/17/24 09/17/24 History mcg/actuation nasal allergy symptoms spray,suspension Allergies Allergy/AdvReac Type Severity Reaction Status Date / Time hydromorphone (From Dilaudid) Allergy Unknown Shakiness Verified 09/17/24 22:42 Penicillins Allergy Unknown Near Verified 09/17/24 22:42 syncope Sulfa (Sulfonamide Allergy Hives Verified 09/17/24 22:42 Antibiotics) Vital Signs Vital Signs - 24 hr 09/17/24 12:27 09/17/24 15:45 09/17/24 16:08 Temperature 97.6 F Pulse Rate 75 68 62 Respiratory Rate 18 21 H Blood Pressure 159/79 H 123/60 Pulse Oximetry 100 100 Oxygen Delivery Room Air 09/17/24 16:09 09/17/24 16:12 Temperature Pulse Rate 63 Respiratory Rate 21 H Blood Pressure 123/60 Pulse Oximetry 100 100 Oxygen Delivery Room Air Room Air Exam Narrative: General: Nontoxic-appearing female in the semi-Figueroa position no distress. Weight: 103.9 kg. BMI: 35.9. HEENT: PERRL, EOMI. Sclera anicteric. Oral mucosa moist. Oropharynx clear. Neck: Supple. Respiratory: Lungs are clear to auscultation bilaterally. Cardiovascular: Regular rate and rhythm with S1-S2. Chest: No tenderness to palpation over the chest wall. Gastrointestinal: Abdomen is soft, nontender, and nondistended with positive bowel sounds. Skin: Warm and dry. No rash or lesions on limited exam. Extremities: No cyanosis, clubbing, or edema. Radial and pedal pulses intact. Neurological: Alert. Cranial nerves 2-12 are grossly intact. No gross focal deficits to casual conversation. Psychiatric: Pleasant and cooperative with normal mood and affect. Judgment and insight intact. H&P: Results Labs Labs: Short CBC 09/17/24 Range/Units 12:43 WBC 13.9 H (4.5-10.0) K/mm3 Hgb 13.5 (12.0-15.0) g/dL Hct 43.2 (37.0-47.0) % Plt Count 316 (150-375) k/mm3 [facility] 09/17/24 12:43 Sodium 140 Potassium 4.1 Chloride 105 Carbon Dioxide 24 BUN 7 D Creatinine 0.94 Glucose 91 Calcium 9.5 Cardiac Enzymes 09/17/24 09/17/24 09/17/24 Range/Units 12:43 17:48 20:02 Troponin I < 0.012 < 0.012 < 0.012 (0.000-0.034) ng/mL Liver Function 09/17/24 Range/Units 12:43 Total Bilirubin 0.9 (0.2-1.3) mg/dL AST 27 (14-36) U/L ALT 18 (6-35) U/L Alkaline Phosphatase 59 (38-126) U/L Albumin 4.5 (3.5-5.1) g/dL Imaging Chest X-Ray 09/17/24 13:35 IMPRESSION: No acute process. Assessment and Plan Assessment and plan (1) Chest pain: Code(s): R07.9 - Chest pain, unspecified Status: Acute (2) Hypertension: Code(s): I10 - Essential (primary) hypertension Status: Acute Plan The patient presented to the emergency department for evaluation of weakness and dizziness as well as chest pressure for the last 3 days as detailed in HPI. Labs, imaging, EKG, and all reports were personally reviewed. Her workup was significant for normal troponin x2 and EKG showing a sinus rhythm with some Q- waves in the inferior leads. It sounds as though she may have had a cardiac event 3 days ago. She does not seem to have unstable angina at this time. She received sublingual nitroglycerin emergency department with resolution of her chest discomfort and she is pain-free at this time. She has been started on a daily aspirin and fasting lipids are pending. She will be NPO after midnight for possible cardiac catheterization tomorrow. Echocardiogram has been ordered. Blood pressures were reviewed and they have been running a bit high, in the 140s to 160 systolic. She takes metoprolol succinate 50 mg and spironolactone 50 mg daily and both of these will be continued. She may very well need another antihypertensive depending on how she trends. Her home medications will be reviewed and resumed as appropriate. Findings and treatment plan were discussed with the patient. Questions were solicited and answered to satisfaction. The patient's medical management will be taken over by the hospitalist team in a.m. Quality VTE Prophylaxis VTE prophylaxis: pharmacologic ordered The patient has been admitted under observation status. Hospitalist MIPS Advance Care Plan I have confirmed that the patient's Advanced Care Plan is present, code status is documented, or surrogate decision maker is listed in patient medical record.: Yes Medication Reconciliation I have utilized all available resources to obtain, update and review the patients current medications (includes all prescriptions, OTC, herbals, cannabis, and nutritional supplements).: Yes
--- NOTE | 2024-09-17 21:59 | ADMGEN ---
This patient, Fariba Kaplan, was admitted to IMU Room 203-01 on 09/17/24 at 2159. Patient/family oriented to hospital policies and general routines including ID bracelet, bed and alarms, visiting hours, pain management, procedures, bathroom and other care routines, personal items, smoking policy, room service/diet, and visiting hours. Information on how to activate the Rapid Response Team has been discussed. Patient/Family are encouraged to report perceived risks to care and to ask questions if they do not understand what they are told or what they should do.
[2024-09-18] VITALS (15 sets, daily range): BP systolic 125–151; BP diastolic 57–72; PULSE 54–68; RESP 16–24; TEMP 36.5–36.9; O2SAT 98–100
--- NOTE | 2024-09-18 | EST_ITS ---
Patient Info Name: Fariba Kaplan Age: 64 years : 1960 Gender: Female Ht: 67 in Wt: 229 lbs BSA: 2.26 m2 HR: 82 bpm BP: 170 / 68 mmHg Exam Date: 09/18/2024 6:25 PM Patient Status: I Admit Date: 09/18/2024 Exam Type: CA stress test treadmill w NM A nuclear stress test was performed. Staff Referring Physician: Eran Hinojosa Attending Provider: Tenzin Dhaliwal Nurse: Yas Bravo Exercise Technologist: Jennie Kee Summary 1. Exercise capacity impaired at <6 METS. Exercise time 4 minutes and 31 seconds. 2. Hypertensive response to exercise. 3. Normal stress ECG with maximal exercise. 4. Please correlate with nuclear medicine images, reported separately. Protocol: Magdy Stress ECG Details Stage: REST Duration (min): 1 min : 49 sec Speed (mph): 0.0 Grade (%): 0 HR (bpm): 79 SBP (mmHg): 170 DBP (mmHg): 68 METS: --- Stage: REST Duration (min): 8 min : 49 sec Speed (mph): 0.0 Grade (%): 0 HR (bpm): 86 SBP (mmHg): 170 DBP (mmHg): 68 METS: --- Stage: STAGE 1 Duration (min): 1 min : 0 sec Speed (mph): 1.7 Grade (%): 10 HR (bpm): 117 SBP (mmHg): 170 DBP (mmHg): 68 METS: --- Stage: STAGE 1 Duration (min): 2 min : 0 sec Speed (mph): 1.7 Grade (%): 10 HR (bpm): 131 SBP (mmHg): 170 DBP (mmHg): 68 METS: --- Stage: STAGE 1 Duration (min): 3 min : 0 sec Speed (mph): 1.7 Grade (%): 10 HR (bpm): 147 SBP (mmHg): 213 DBP (mmHg): 79 METS: --- Stage: STAGE 2 Duration (min): 1 min : 0 sec Speed (mph): 2.5 Grade (%): 12 HR (bpm): 146 SBP (mmHg): 213 DBP (mmHg): 79 METS: --- Stage: STAGE 2 Duration (min): 1 min : 31 sec Speed (mph): 2.5 Grade (%): 12 HR (bpm): 152 SBP (mmHg): 213 DBP (mmHg): 79 METS: --- Stage: RECOVERY Duration (min): 0 min : 28 sec Speed (mph): 1.5 Grade (%): 0 HR (bpm): 153 SBP (mmHg): 194 DBP (mmHg): 73 METS: --- Stage: RECOVERY Duration (min): 1 min : 28 sec Speed (mph): 0.0 Grade (%): 0 HR (bpm): 141 SBP (mmHg): 194 DBP (mmHg): 73 METS: --- Stage: RECOVERY Duration (min): 2 min : 28 sec Speed (mph): 0.0 Grade (%): 0 HR (bpm): 119 SBP (mmHg): 194 DBP (mmHg): 73 METS: --- Stage: RECOVERY Duration (min): 3 min : 28 sec Speed (mph): 0.0 Grade (%): 0 HR (bpm): 109 SBP (mmHg): 240 DBP (mmHg): 76 METS: --- Stage: RECOVERY Duration (min): 4 min : 28 sec Speed (mph): 0.0 Grade (%): 0 HR (bpm): 106 SBP (mmHg): 240 DBP (mmHg): 76 METS: --- Stage: RECOVERY Duration (min): 5 min : 28 sec Speed (mph): 0.0 Grade (%): 0 HR (bpm): 105 SBP (mmHg): 206 DBP (mmHg): 75 METS: --- Stage: RECOVERY Duration (min): 6 min : 28 sec Speed (mph): 0.0 Grade (%): 0 HR (bpm): 97 SBP (mmHg): 206 DBP (mmHg): 75 METS: --- Stage: RECOVERY Duration (min): 7 min : 28 sec Speed (mph): 0.0 Grade (%): 0 HR (bpm): 92 SBP (mmHg): 178 DBP (mmHg): 77 METS: --- Stage: RECOVERY Duration (min): 7 min : 29 sec Speed (mph): 0.0 Grade (%): 0 HR (bpm): 92 SBP (mmHg): 178 DBP (mmHg): 77 METS: --- Rest HR: 86 bpm Peak HR: 153 bpm Rest Sys BP: 170 mmHg Peak Sys BP: 240 mmHg Max Pred HR: 154 bpm % Max Pred HR: 99 % Target HR: 131 bpm Max RPP: 36,720 bpm*mmHg Batista Score: [address] Seg Deviation: 0.90 mm Total Time: 4 min : 31 sec Rest Sullivan BP: 68 mmHg Peak Sullivan BP: 76 mmHg Angina Score: None Total METS: 7.1 Resting ECG Sinus rhythm with a ventricular rate of 79 beats per minute. No ischemic ST T wave changes. Stress ECG No ischemic changes with exercise. Arrhythmias Occasional premature ventricular contractions during recovery. Report Signatures
--- NOTE | 2024-09-18 | ECHO_ITS ---
Patient Info Name: Fariba Kaplan Age: 64 years : 1960 Gender: Female Ht: 67 in Wt: 229 lbs BSA: 2.26 m2 HR: 64 bpm BP: 132 / 72 mmHg Heart Rhythm: Sinus Rhythm Technical Quality: Good Exam Date: 09/18/2024 3:50 PM Patient Status: I Admit Date: 09/18/2024 Exam Type: CA echo dop color flow w con Complete two-dimensional, color flow and Doppler transthoracic echocardiogram is performed with contrast to opacify the left ventricle and to improve the deliniation of the left ventricle endocardial borders. Staff Referring Physician: Abraham Hawthorne Equipment Operator Wage Hand: Jennie Kee Attending Provider: Loyd Gilbert Contrast/Agitated Saline Contrast/Ag. Saline: Definity Amount: 2.00 ml Administered By: Jennie Kee Existing IV Access: Yes IV Access Condition: patent with no signs of infiltration Summary 1. The left ventricle is normal in size and systolic function. The left ventricular ejection fraction is visually estimated to be 60-65%. There are no regional wall motion abnormalities. 2. The right ventricle is normal in size and systolic function. 3. There are no significant valvular abnormalities. 4. There is trace pericardial effusion. Left Ventricle The left ventricle is normal in size and systolic function. The left ventricular ejection fraction is visually estimated to be 60-65%. There are no regional wall motion abnormalities. Right Ventricle The right ventricle is normal in size and systolic function. Left Atria The left atrium is normal size. Right Atria The right atrium is normal size. Atrial Septum The atrial septum is normal. Aortic Valve The aortic valve is trileaflet and opens well. There is no aortic regurgitation. Pulmonic Valve The pulmonic valve is grossly normal. There is trace pulmonic valve regurgitation. Mitral Valve The mitral valve is normal. There is no mitral regurgitation. Tricuspid Valve The tricuspid valve is normal. There is trace tricuspid regurgitation. Pericardium/Pleural There is trace pericardial effusion. Inferior Vena Cava Normal inferior vena cava with >50% collapse upon inspiration consistent with normal right atrial pressure, 3 mmHg. Aorta The aortic root at the level of the sinus of Valsalva measures 2.6 cm in diameter. Left Ventricular Outflow Tract Name Value Normal LVOT 2D LVOT Diameter 2.0 cm LVOT Doppler LVOT Peak Velocity 89 cm/s LVOT Peak Gradient 3 mmHg LVOT Mean Gradient 2 mmHg LVOT VTI 24 cm LVOT VTI/AV VTI Ratio 0.8 LVOT Stroke Volume 74 ml LVOT CO 4.2 l/min LVOT CI 1.9 l/min/m2 Pulmonic Valve Name Value Normal RVOT Doppler RVOT Peak Velocity 60 cm/s RVOT Peak Gradient 1 mmHg PV Doppler PV Peak Velocity 87 cm/s PV Peak Gradient 3 mmHg Mitral Valve Name Value Normal MV Diastolic Function MV E Peak Velocity 72 cm/s MV A Peak Velocity 103 cm/s MV E/A 0.7 MV Decel Time (PW) 287 ms MV Annular TDI MV E/e' (Septal) 14.2 MV E/e' (Lateral) 12.7 MV E/e' (Average) 13.5 Tricuspid Valve Name Value Normal TV Regurgitation Doppler TR Peak Velocity 256 cm/s TR Peak Gradient 26 mmHg Estimated PAP/RSVP RA Pressure 3 mmHg <=5 PA Systolic Pressure 29 mmHg <36 RV Systolic Pressure 29 mmHg <36 TV Annular TDI TV Lateral Debora s' Velocity 11.4 cm/s >=9.5 Aorta Name Value Normal Ascending Aorta Ao Root Diameter (MM) 2.8 cm Ao Root Diam Index (MM) 1.2 cm/m2 Aortic Valve Name Value Normal AV Doppler AV Peak Velocity 132 cm/s AV Peak Gradient 7 mmHg AV Mean Gradient 4 mmHg AV VTI 31 cm AV Area (Cont Eq VTI) 2.4 cm2 >=3.0 AV Area (Cont Eq Larry) 2.1 cm2 AV DI (Larry) 0.68 AV Regurgitation 2D LVOT Area 3.1 cm2 Ventricles Name Value Normal LV Dimensions 2D/MM IVS Diastolic Thickness (2D) 1.1 cm 0.6-1.0 LVID Diastole (2D) 4.6 cm 3.8-5.2 LVIW Diastolic Thickness (2D) 1.0 cm 0.6-0.9 LVID Systole (2D) 2.4 cm 2.2-3.5 LVOT Diameter 2.0 cm LV Mass (2D Cubed) 168.33 g 67.00-162.00 LV Mass Index (2D Cubed) 75 g/m2 43-95 Relative Wall Thickness (2D) 0.42 <=0.42 LV Fractional Shortening/Ejection Fraction 2D/MM LV Fractional Shortening (2D) 49 % 27-45 LV EF (2D Teichholz) 80 % LV Diastolic Volume (4C MOD) 87 ml LV EF (4C MOD) 80 % LV Diastolic Volume (2C MOD) 53 ml LV EF (2C MOD) 78 % LV Diastolic Volume (BP MOD) 71 ml 46-106 LV Diastolic Volume Index (BP MOD) 32 ml/m2 29-61 LV Systolic Volume (BP MOD) 15 ml 14-42 LV Systolic Volume Index (BP MOD) 7 ml/m2 8-24 LV EF (BP MOD) 79 % 54-74 LV Diastolic Length (4C) 7.8 cm LV Systolic Length (4C) 6.1 cm LV Stroke Volume (4C MOD) 69 ml Atria Name Value Normal LA Dimensions LA Dimension (MM) 3.7 cm 2.7-3.8 LA Volume (4C A-L) 65 ml LA Volume (BP A-L) 67 ml RA Dimensions RA Systolic Major [place] Length (4C) 5.0 cm 2.2-2.8 RA Area (4C) 13.2 cm2 <=18.0 Report [facility]
[2024-09-18 05:10] LABS: Hematocrit 40.8 % (37.0-47.0); Hemoglobin 12.8 g/dL (12.0-15.0); Mean Corpuscular HGB Conc 31.4 g/dl (32-36); Mean Corpuscular Volume 79.8 fl (80-100); Platelet Count Result 296 k/mm3 (150-375); Red Blood Count 5.11 M/mm3 (4.2-5.4); White Blood Count 12.7 K/mm3 (4.5-10.0)
[2024-09-18 05:26] LABS: Anion Gap 8 mmol/L (4-12); Blood Urea Nitrogen 8 mg/dL (7-17); Calcium 9.3 mg/dL (8.4-10.2); Carbon Dioxide 25 mmol/L (22-30); Chloride 107 mmol/L (98-107); Cholesterol 227 mg/dL (0-200); Estimated CRCL calculation 71 ml/min; Estimated Glomerular Filt Rate > 60; Glucose 88 mg/dL (65-110); HDL Direct 49 mg/dL; Potassium 4.2 mmol/L (3.4-5.0); Sodium 140 mmol/L (137-145); Triglycerides 119 mg/dL (<150)
[2024-09-18 05:37] LABS: LDL Cholesterol Direct 120 mg/dL
[2024-09-18] MEDS: ASCORBIC ACID 500 MG TABLET PO (08:53)
[2024-09-18] MEDS: METOPROLOL SUCCINATE EXT REL 50 MG TABCR PO (08:53)
[2024-09-18] MEDS: ASPIRIN 81 MG ENTERIC TABLET PO (08:54)
[2024-09-18] MEDS: PANTOPRAZOLE 40 MG TABLET PO (08:54)
--- NOTE | 2024-09-18 15:55 | P.PNIM_ITS ---
Progress Note: A&P Assessment and Plan (1) Chest pain: Code(s): R07.9 - Chest pain, unspecified Status: Acute (2) Hypertension: Code(s): I10 - Essential (primary) hypertension Status: Acute Plan This is a very pleasant 64-year-old female with hypertension, gastroesophageal reflux disease, gastritis on recent EGD, and breast cancer in 2018 who presented to the emergency department via private vehicle with complaints of chest pain. A few days ago she tells me that she woke up and was feeling a bit short winded when walking around the house. She then went outside to water her plants and had to come back inside after about 10 minutes because she was still feeling short winded and she also began experiencing heaviness in the mid chest region as well as feelings of lightheadedness. She went inside to rest but her symptoms continued for at least 3 hours. She goes on to say that she has been increasingly fatigued and generally weak since that time. She continues to have intermittent episodes of the chest heaviness and shortness of breath although it is not constant. With further questioning she admits that she has been more fatigued over the last several weeks and had noticed that she was getting short of breath with exertion when normally she would not. She denies syncope, near syncope, pleuritic pain, palpitations, nausea, vomiting, bloating, belching, lower extremity edema, and calf pain. She had an abnormal EKG about 10 years ago and a cardiac catheterization thereafter which was reportedly clear. At the time my evaluation she is resting comfortably and has no complaints. In the ED: She was in a sinus rhythm with rate of 75 on arrival and a blood pressure 159/79 with an SpO2 of 100% on room air. Labs were significant for WBC count of 13.9 and a troponin of less than 0.012. EKG showed sinus rhythm with voltage criteria for LVH and possible age-indeterminate anterior inferior infarct. She was given sublingual nitroglycerin with resolution of chest discomfort. She is being admitted in this setting for close monitoring and Cardiology consultation. Chest pain some typical component present. Ruled out for ACS with negative troponin x3. EKG with Q-waves in inferior leads. Further evaluation with stress test versus catheterization. Will get echocardiogram. Await cardiac evaluation. Continue aspirin. Lipid profile with LDL 120 total cholesterol 227 HDL 49 triglyceride 119. Patient with Beta-dana with metoprolol succinate and spironolactone Hypertension continue home medication Hyperlipidemia as noted on lipid profile. Will benefit from at least moderate intensity statin GERD: EGD with mild gastritis. Pathology with Mild reactive gastropathy mild chronic reflux esophagitis. On omeprazole History of breast cancer in 2018 History of cervical cancer DVT prophylaxis SCDs Code status full code Subjective Date/time seen: 09/18/24 15:55 Interval history: Doing well. No overnight events. Chest pain described retrosternal radiating to the jaw. No shortness of breath. Has been feeling extremely tired Review of Systems Review of Systems: All systems reviewed & are unremarkable except as noted in HPI and below Exam Narrative: General: Nontoxic-appearing female in the semi-Figueroa position no distress. HEENT: PERRL, EOMI. Sclera anicteric. Oral mucosa moist. Oropharynx clear. Neck: Supple. Respiratory: Lungs are clear to auscultation bilaterally. Cardiovascular: Regular rate and rhythm with S1-S2. Chest: No tenderness to palpation over the chest wall. Gastrointestinal: Abdomen is soft, nontender, and nondistended with positive bowel sounds. Skin: Warm and dry. No rash or lesions on limited exam. Extremities: No cyanosis, clubbing, or edema. Radial and pedal pulses intact. Neurological: Alert. Cranial nerves 2-12 are grossly intact. No gross focal deficits to casual conversation. Psychiatric: Pleasant and cooperative with normal mood and affect. Judgment and insight intact. Objective Data Vital Signs Vital Signs: Vital Signs - 24 hr 09/17/24 16:08 09/17/24 16:09 09/17/24 16:12 Temperature Pulse Rate 62 63 Respiratory Rate 21 H 21 H Blood Pressure 123/60 123/60 Pulse Oximetry 100 100 100 Oxygen Delivery Room Air Room Air 09/17/24 17:00 09/17/24 18:00 09/17/24 18:45 Temperature Pulse Rate 69 62 71 Respiratory Rate 23 H 18 19 Blood Pressure 128/71 142/71 H 160/79 H Pulse Oximetry 96 99 99 Oxygen Delivery 09/17/24 19:30 09/17/24 21:15 09/17/24 21:47 Temperature Pulse Rate 65 61 59 L Respiratory Rate 20 20 14 Blood Pressure 147/79 H 144/57 H 144/57 H Pulse Oximetry 100 100 100 Oxygen Delivery 09/17/24 21:55 09/17/24 22:00 09/17/24 22:00 Temperature 98.2 F 98.2 F Pulse Rate 61 61 66 Respiratory Rate 18 18 Blood Pressure 153/63 H 153/63 H Pulse Oximetry 100 100 Oxygen Delivery 09/17/24 22:09 09/18/24 00:00 09/18/24 00:00 Temperature 97.7 F Pulse Rate 61 64 64 Respiratory Rate 18 16 16 Blood Pressure 151/61 H Pulse Oximetry 100 100 100 Oxygen Delivery Room Air Room Air 09/18/24 00:00 09/18/24 02:00 09/18/24 04:00 Temperature 97.7 F Pulse Rate 67 59 L 55 L Respiratory Rate 18 Blood Pressure 125/64 Pulse Oximetry 99 Oxygen Delivery 09/18/24 04:00 09/18/24 04:00 09/18/24 05:34 Temperature Pulse Rate 55 L 55 L 58 L Respiratory Rate 18 Blood Pressure Pulse Oximetry 99 Oxygen Delivery Room Air 09/18/24 08:00 09/18/24 08:00 09/18/24 08:00 Temperature 97.7 F Pulse Rate 54 L 62 Respiratory Rate 20 Blood Pressure 133/71 Pulse Oximetry 100 100 Oxygen Delivery Room Air 09/18/24 08:53 09/18/24 10:00 09/18/24 12:00 Temperature Pulse Rate 65 64 Respiratory Rate Blood Pressure Pulse Oximetry 100 Oxygen Delivery Room Air 09/18/24 12:00 09/18/24 12:00 09/18/24 14:00 Temperature 97.9 F Pulse Rate 61 58 L 58 L Respiratory Rate 24 H Blood Pressure 134/72 Pulse Oximetry 100 Oxygen Delivery Intake/Output Intake/Output: Intake & Output 09/15/24 09/16/24 09/17/24 09/18/24 23:59 23:59 23:59 23:59 Intake Total 222 480 Output Total 750 Balance 222 -270 Meds/Results Medications: Active Medications Generic Name Dose Route Start Last Admin Trade Name Freq PRN Reason Stop Dose Admin Acetaminophen 650 mg 09/17/24 19:39 Acetaminophen 325 Mg Tablet PO Q4H PRN Mild Pain (1-3) or Fever Ascorbic Acid 500 mg 09/18/24 09:00 09/18/24 08:53 Ascorbic Acid 500 Mg Tablet PO 500 mg DAILY [facility] Administration Aspirin 81 mg 09/18/24 09:00 09/18/24 08:54 Aspirin 81 Mg Enteric Tablet PO 81 mg QAM [facility] Administration Fluticasone Propionate 1 spray 09/18/24 00:52 Fluticasone Propionate 0.05% Na Spr 16 Gm Btl (*Bkc) NASAL DAILY PRN allergy symptoms Metoprolol Succinate 50 mg 09/18/24 09:00 09/18/24 08:53 Metoprolol Succinate Ext Rel 50 Mg Tabcr PO 50 mg DAILY [facility] Administration Multivitamins Therapeutic 1 tablet 09/18/24 21:00 Multivitamins Therapeutic Tab (*Bkc) PO HS [facility] Nitroglycerin 0.4 mg 09/17/24 19:39 Nitroglycerin Sl 0.4 Mg Tablet SUBLINGUAL Q5MIN PRN Chest Pain Ondansetron HCl 4 mg 09/17/24 19:39 Ondansetron Inj 4 Mg/2 Ml Vial IV PUSH Q4H PRN Nausea Pantoprazole Sodium 40 mg 09/18/24 09:00 09/18/24 08:54 Pantoprazole 40 Mg Tablet PO 40 mg QAM [facility] Administration Perflutren Lipid Microsphere 0 ml 09/18/24 14:22 Perflutren Lipid Microspheres 1.5 Ml Vial Diluted To 10 Ml Total Volume IV PUSH 09/21/24 14:23 ONCE PRN adequate visualization Protocol Spironolactone 50 mg 09/18/24 21:00 Spironolactone 50 Mg Tablet PO HS [facility] Radiology Results: ITS Impressions Chest X-Ray 09/17/24 13:35 IMPRESSION: No acute process. Labs Labs: Laboratory Results - last 24 hr 09/17/24 09/17/24 09/18/24 17:48 20:02 04:14 WBC 12.7 H RBC 5.11 Hgb 12.8 Hct 40.8 MCV 79.8 L MCH 25.0 L MCHC 31.4 L RDW 15.0 H Plt Count 296 MPV 10.0 D-Dimer 0.32 Sodium 140 Potassium 4.2 Chloride 107 Carbon Dioxide 25 Anion Gap 8 BUN 8 Creatinine 0.84 Estim Creat Clear Calc 71 Estimated GFR > 60 Glucose 88 Calcium 9.3 Troponin I < 0.012 < 0.012 Triglycerides 119 Cholesterol 227 H LDL Cholesterol Direct 120 HDL Direct 49
[2024-09-18] MEDS: PERFLUTREN LIPID MICROSPHERES 1.5 ML VIAL DILUTED TO 10 ML TOTAL VOLUME IV PUSH (16:20)
--- NOTE | 2024-09-18 16:41 | IVDEFINITY ---
Prior to administration of IV Definity the patient was educated on the risks and benefits of the imaging enhancing agent including potential adverse side effects. The patient verbalized understanding. Allergies were verified. No exclusion criteria were identified and at least one of the following inclusion criteria were met: 1) physician request, 2) patient technically difficult to image (per the [place] [employer] guidelines of two or more segments not discernable within the apical view), or 3) questionable left ventricular function. ?
--- NOTE | 2024-09-18 18:17 | P.CONCA_ITS ---
Assessment and Plan Assessment and plan (1) Hypertension: Code(s): I10 - Essential (primary) hypertension Status: Acute (2) Chest pain: Code(s): R07.9 - Chest pain, unspecified Status: Acute (3) Hyperlipidemia: Code(s): E78.5 - Hyperlipidemia, unspecified Status: Acute Plan 64-year-old woman with history of breast cancer (2018), hypertension, and gastritis on recent EGD presented with chest pain Chest pain -troponin negative for CO transthoracic shows normal biventricular systolic function no regional wall motion abnormality however it does show trace pericardial effusion -have discussed with the patient that she can pursue outpatient ischemic evaluation versus waiting until Friday for inpatient nuclear stress test with treadmill exercise -she would like to stay in hospital until Friday to pursue her treadmill exercise stress test with nuclear myocardial perfusion imaging -can home metoprolol the morning of her study Hypertension -continue spironolactone Hyperlipidemia -start atorvastatin 40 mg every evening History of Present Illness History of Present Illness Consult date/time: 09/18/24 18:17 Requesting physician: Tenzin Dhaliwal MD Consult reason: chest pain Reason For Visit: Unstable angina Narrative: 64-year-old woman with history of breast cancer (2018), hypertension, and gastritis on recent EGD presented with chest pain. Earlier this month she underwent EGD. She was found have gastritis for which she was placed on PPI therapy. Shortly after, she felt severe fatigue along with decrease exertional capacity. And then 3 days ago, she developed sudden onset of chest discomfort left-sided heaviness in nature that would come and go without clear exacerbating or precipitating factors. She did notice that when she arrived and was given sublingual nitroglycerin, her chest discomfort did improve significantly. She had another episode last evening the lasted for 30 minutes that will self resolve. Associated dyspnea as well as palpitations. No syncopal events. No recent fever chills or productive sputum. Review of Systems 2 Cardiovascular: Cardiovascular: Reports as per HPI Respiratory: Respiratory: Reports as per HPI [facility] Past Medical History Medical History (Updated 09/18/24 @ 18:23 by Eran Hinojosa MD) Psoriasis Cervical cancer (1999) Cancer of right breast (2017) status post lumpectomy and radiation therapy Gastroesophageal reflux disease Gastritis Hypertension Surgical History Surgical History (Updated 09/18/24 @ 00:37 by Jayne Davis PA-C) History of cholecystectomy History of partial thyroidectomy for a benign nodule History of partial hysterectomy for cervical cancer History of lumpectomy of right breast for right breast cancer Family History Family History Mother Breast cancer Hypertension Sibling Thyroid cancer Hyperlipidemia Hypertension Father Hypertension Rectal bleeding Son Hodgkins lymphoma Daughter Hodgkins lymphoma Congestive heart failure Sibling Hypertension Cerebrovascular accident Sibling Hypertension Sibling Lung cancer Social History Social History (Updated 09/18/24 @ 00:38 by Jayne Davis PA-C) Social History: Surrogate medical decision maker: Brent Kaplan, daughter. Code status: Full code. Smoking packs per day: 0.3 Smoking cigarettes per day: 6.0 Years smoked: 10 Smoking pack-years: 3.00 Smoking status: Former smoker Tobacco type: cigarettes Alcohol intake: never Substance use: never Substance use type: does not use Do You Feel Safe in your Home?: Yes Lack of Transportation: No Lack of Food: Never True Current Housing: I Have Housing Concerned About Future Housing: No Difficulty Paying Gas/Electric Bills: No Difficulty Paying for Meds: No Currently Unemployed: No Education: Trade/Vocational Certificate Difficulty w/ Childcare or Family Care: No Living arrangements: with family Spiritual care concerns: No Meds Home Medications and Allergies Home Medications ?Medication ?Instructions ?Recorded ?Confirmed ?Type ascorbic acid (vitamin C) 1 tablet PO DAILY 08/24/24 09/17/24 History metoprolol succinate 50 mg 50 mg PO DAILY 08/24/24 09/17/24 History tablet,extended release 24 hr multivitamin (Daily Multi-Vitamin 1 tablet PO HS 08/24/24 09/17/24 History tablet) omega 3-ssq-uro-fish oil 1,000 mg 1 cap PO BID 08/24/24 09/17/24 History (120 mg-180 mg) capsule (Fish Oil) spironolactone 50 mg tablet 50 mg PO HS 08/24/24 09/17/24 History omeprazole 20 mg capsule,delayed 20 mg PO DAILY #30 caps 08/31/24 09/17/24 Rx release fluticasone propionate 50 1 spray intranasal DAILY PRN 09/17/24 09/17/24 History mcg/actuation nasal allergy symptoms spray,suspension Allergies Allergy/AdvReac Type Severity Reaction Status Date / Time hydromorphone (From Dilaudid) Allergy Unknown Nausea, Verified 09/18/24 14:27 muscle tightness, shakiness. Penicillins Allergy Unknown Near Verified 09/17/24 22:42 syncope Sulfa (Sulfonamide Allergy Hives Verified 09/17/24 22:42 Antibiotics) Vital Signs Vital Signs - 24 hr 09/17/24 18:45 09/17/24 19:30 09/17/24 21:15 Temperature Pulse Rate 71 65 61 Respiratory Rate 19 20 20 Blood Pressure 160/79 H 147/79 H 144/57 H Pulse Oximetry 99 100 100 Oxygen Delivery 09/17/24 21:47 09/17/24 21:55 09/17/24 22:00 Temperature 36.8 C 36.8 C Pulse Rate 59 L 61 61 Respiratory Rate 14 18 18 Blood Pressure 144/57 H 153/63 H 153/63 H Pulse Oximetry 100 100 100 Oxygen Delivery 09/17/24 22:00 09/17/24 22:09 09/18/24 00:00 Temperature 36.5 C Pulse Rate 66 61 64 Respiratory Rate 18 16 Blood Pressure 151/61 H Pulse Oximetry 100 100 Oxygen Delivery Room Air 09/18/24 00:00 09/18/24 00:00 09/18/24 02:00 Temperature Pulse Rate 64 67 59 L Respiratory Rate 16 Blood Pressure Pulse Oximetry 100 Oxygen Delivery Room Air 09/18/24 04:00 09/18/24 04:00 09/18/24 04:00 Temperature 36.5 C Pulse Rate 55 L 55 L 55 L Respiratory Rate 18 18 Blood Pressure 125/64 Pulse Oximetry 99 99 Oxygen Delivery Room Air 09/18/24 05:34 09/18/24 08:00 09/18/24 08:00 Temperature 36.5 C Pulse Rate 58 L 54 L Respiratory Rate 20 Blood Pressure 133/71 Pulse Oximetry 100 100 Oxygen Delivery Room Air 09/18/24 08:00 09/18/24 08:53 09/18/24 10:00 Temperature Pulse Rate 62 65 64 Respiratory Rate Blood Pressure Pulse Oximetry Oxygen Delivery 09/18/24 12:00 09/18/24 12:00 09/18/24 12:00 Temperature 36.6 C Pulse Rate 61 58 L Respiratory Rate 24 H Blood Pressure 134/72 Pulse Oximetry 100 100 Oxygen Delivery Room Air 09/18/24 14:00 09/18/24 16:00 09/18/24 16:00 Temperature Pulse Rate 58 L 59 L Respiratory Rate Blood Pressure Pulse Oximetry 100 Oxygen Delivery Room Air 09/18/24 16:00 09/18/24 18:00 Temperature 36.9 C Pulse Rate 65 68 Respiratory Rate 20 Blood Pressure 136/64 Pulse Oximetry 98 Oxygen Delivery Exam 2 Const: General: comfortable HENMT: Mouth: Yes moist mucous membranes Eyes: EOM: EOMs intact bilaterally Neck: Neck: no JVD Resp: Effort & Inspection: normal respiratory effort Auscultation: clear to auscultation bilaterally Cardio: Rate: regular rate Rhythm: regular rhythm GI: GI Palp: Yes Soft to palpation Neuro: Speech: normal speech Extrem: General: no pedal edema Results Labs and Meds 09/18/24 04:14 09/18/24 04:14 Lab results: Cardiac Enzymes 09/17/24 09/17/24 Range/Units 17:48 20:02 Troponin I < 0.012 < 0.012 (0.000-0.034) ng/mL Lipids 09/18/24 Range/Units 04:14 Triglycerides 119 (<150) mg/dL Cholesterol 227 H (0-200) mg/dL CBC 09/18/24 Range/Units 04:14 WBC 12.7 H (4.5-10.0) K/mm3 RBC 5.11 (4.2-5.4) M/mm3 Hgb 12.8 (12.0-15.0) g/dL Hct 40.8 (37.0-47.0) % Plt Count 296 (150-375) k/mm3 Comprehensive Metabolic Panel 09/18/24 Range/Units 04:14 Sodium 140 (137-145) mmol/L Potassium 4.2 (3.4-5.0) mmol/L Chloride 107 (98-107) mmol/L Carbon Dioxide 25 (22-30) mmol/L BUN 8 (7-17) mg/dL Creatinine 0.84 (0.7-1.0) mg/dL Glucose 88 (65-110) mg/dL Calcium 9.3 (8.4-10.2) mg/dL Intake and Output 09/18/24 09/18/24 09/18/24 07:59 15:59 23:59 Intake Total 120 360 590 Output Total 750 700 Balance -630 360 -110 Intake: Oral 120 360 590 Output: Urine 750 700 Patient Weight 09/18/24 23:59 Weight 103.9 kg
[2024-09-18] MEDS: SPIRONOLACTONE 50 MG TABLET PO (20:51)
[2024-09-18] MEDS: MULTIVITAMINS THERAPEUTIC TAB (*BKC) 1 TABLET PO (20:51)
[2024-09-19] VITALS (16 sets, daily range): BP systolic 117–149; BP diastolic 44–77; PULSE 54–77; RESP 16–20; TEMP 36.4–36.8; O2SAT 98–100
[2024-09-19] MEDS: ACETAMINOPHEN 325 MG TABLET 650 MG PO ×3 (00:24→20:33)
[2024-09-19] MEDS: ATORVASTATIN 10 MG TABLET PO (08:51)
[2024-09-19] MEDS: ASCORBIC ACID 500 MG TABLET PO (08:51)
[2024-09-19] MEDS: METOPROLOL SUCCINATE EXT REL 50 MG TABCR PO (08:51)
[2024-09-19] MEDS: PANTOPRAZOLE 40 MG TABLET PO (08:51)
[2024-09-19] MEDS: ASPIRIN 81 MG ENTERIC TABLET PO (08:51)
--- NOTE | 2024-09-19 09:20 | P.PNCA_ITS ---
Progress Note: A&P Assessment and Plan (1) Chest pain: Code(s): R07.9 - Chest pain, unspecified Status: Acute (2) Hyperlipidemia: Code(s): E78.5 - Hyperlipidemia, unspecified Status: Acute (3) Hypertension: Code(s): I10 - Essential (primary) hypertension Status: Acute Plan 64-year-old woman with history of breast cancer (2018), hypertension, and gastritis on recent EGD presented with chest pain Chest pain -troponin negative for [place] transthoracic shows normal biventricular systolic function no regional wall motion abnormality however it does show trace pericardial effusion -have discussed with the patient that she can pursue outpatient ischemic evalu ation versus waiting until Friday for inpatient nuclear stress test with treadmill exercise -she would like to stay in hospital until Friday to pursue her treadmill exercise stress test with nuclear myocardial perfusion imaging -can home metoprolol the morning of her study -will prescribe Tylenol p.r.n. prior to her treadmill exercise as she does have some hip discomfort with ambulation Hypertension -continue spironolactone Hyperlipidemia -start atorvastatin 40 mg every evening Subjective Date/time seen: 09/19/24 09:20 Interval history: No chest pain or shortness of breath Review of Systems Cardiovascular: Cardiovascular: Reports as per HPI Respiratory: Respiratory: Reports as per HPI Exam Const: General: comfortable HENMT: Mouth: Yes moist mucous membranes Eyes: EOM: EOMs intact bilaterally Neck: Neck: no JVD Resp: Effort & Inspection: normal respiratory effort Auscultation: clear to auscultation bilaterally Cardio: Rate: regular rate Rhythm: regular rhythm GI: GI Palp: Yes Soft to palpation Neuro: Speech: normal speech Extrem: General: no pedal edema Objective Data Vital Signs Vital Signs: Vital Signs - 24 hr 09/18/24 10:00 09/18/24 12:00 09/18/24 12:00 Temperature Pulse Rate 64 61 Respiratory Rate Blood Pressure Pulse Oximetry 100 Oxygen Delivery Room Air 09/18/24 12:00 09/18/24 14:00 09/18/24 16:00 Temperature 36.6 C Pulse Rate 58 L 58 L Respiratory Rate 24 H Blood Pressure 134/72 Pulse Oximetry 100 100 Oxygen Delivery Room Air 09/18/24 16:00 09/18/24 16:00 09/18/24 18:00 Temperature 36.9 C Pulse Rate 59 L 65 68 Respiratory Rate 20 Blood Pressure 136/64 Pulse Oximetry 98 Oxygen Delivery 09/18/24 19:49 09/18/24 20:00 09/18/24 20:41 Temperature 36.7 C Pulse Rate 59 L 63 59 L Respiratory Rate 16 16 Blood Pressure 135/57 L Pulse Oximetry 100 100 Oxygen Delivery Room Air 09/18/24 22:00 09/19/24 00:00 09/19/24 00:00 Temperature 36.8 C Pulse Rate 59 L 55 L 68 Respiratory Rate 16 Blood Pressure 133/44 L Pulse Oximetry 98 Oxygen Delivery 09/19/24 00:21 09/19/24 01:53 09/19/24 04:00 Temperature Pulse Rate 55 L 63 58 L Respiratory Rate 16 Blood Pressure Pulse Oximetry 98 Oxygen Delivery Room Air 09/19/24 04:00 09/19/24 04:00 09/19/24 05:25 Temperature 36.5 C Pulse Rate 56 L 56 L 54 L Respiratory Rate 16 16 Blood Pressure 132/74 Pulse Oximetry 100 100 Oxygen Delivery Room Air 09/19/24 08:00 09/19/24 08:51 Temperature 36.8 C Pulse Rate 63 60 Respiratory Rate 20 Blood Pressure 124/64 Pulse Oximetry 99 Oxygen Delivery Intake/Output Intake/Output: Intake & Output 09/16/24 09/17/24 09/18/24 09/19/24 23:59 23:59 23:59 23:59 Intake Total 222 1070 240 Output Total 2450 600 Balance 481 -1657 -065 Meds/Results Medications: Active Medications Generic Name Dose Route Start Last Admin Trade Name Freq PRN Reason Stop Dose Admin Acetaminophen 650 mg 09/17/24 19:39 09/19/24 08:51 Acetaminophen 325 Mg Tablet PO 650 mg Q4H PRN Administration Mild Pain (1-3) or Fever Ascorbic Acid 500 mg 09/18/24 09:00 09/19/24 08:51 Ascorbic Acid 500 Mg Tablet PO 500 mg DAILY [facility] Administration Aspirin 81 mg 09/18/24 09:00 09/19/24 08:51 Aspirin 81 Mg Enteric Tablet PO 81 mg QAM [facility] Administration Atorvastatin Calcium 10 mg 09/19/24 09:00 09/19/24 08:51 Atorvastatin 10 Mg Tablet PO 10 mg DAILY [facility] Administration Atorvastatin Calcium 40 mg 09/19/24 18:00 Atorvastatin 40 Mg Tablet PO EVENING [facility] Fluticasone Propionate 1 spray 09/18/24 00:52 Fluticasone Propionate 0.05% Na Spr 16 Gm Btl (*Bkc) NASAL DAILY PRN allergy symptoms Metoprolol Succinate 50 mg 09/18/24 09:00 09/19/24 08:51 Metoprolol Succinate Ext Rel 50 Mg Tabcr PO 50 mg DAILY [facility] Administration Multivitamins Therapeutic 1 tablet 09/18/24 21:00 09/18/24 20:51 Multivitamins Therapeutic Tab (*Bkc) PO 1 tablet HS [facility] Administration Nitroglycerin 0.4 mg 09/17/24 19:39 Nitroglycerin Sl 0.4 Mg Tablet SUBLINGUAL Q5MIN PRN Chest Pain Ondansetron HCl 4 mg 09/17/24 19:39 Ondansetron Inj 4 Mg/2 Ml Vial IV PUSH Q4H PRN Nausea Pantoprazole Sodium 40 mg 09/18/24 09:00 09/19/24 08:51 Pantoprazole 40 Mg Tablet PO 40 mg QAM [facility] Administration Spironolactone 50 mg 09/18/24 21:00 09/18/24 20:51 Spironolactone 50 Mg Tablet PO 50 mg HS [facility] Administration Radiology Results: ITS Impressions Chest X-Ray 09/17/24 13:35 IMPRESSION: No acute process.
--- NOTE | 2024-09-19 13:16 | P.PNIM_ITS ---
Progress Note: A&P Assessment and Plan (1) Chest pain: Code(s): R07.9 - Chest pain, unspecified Status: Acute (2) Hypertension: Code(s): I10 - Essential (primary) hypertension Status: Acute Plan This is a very pleasant 64-year-old female with hypertension, gastroesophageal reflux disease, gastritis on recent EGD, and breast cancer in 2018 who presented to the emergency department via private vehicle with complaints of chest pain. A few days ago she tells me that she woke up and was feeling a bit short winded when walking around the house. She then went outside to water her plants and had to come back inside after about 10 minutes because she was still feeling short winded and she also began experiencing heaviness in the mid chest region as well as feelings of lightheadedness. She went inside to rest but her symptoms continued for at least 3 hours. She goes on to say that she has been increasingly fatigued and generally weak since that time. She continues to have intermittent episodes of the chest heaviness and shortness of breath although it is not constant. With further questioning she admits that she has been more fatigued over the last several weeks and had noticed that she was getting short of breath with exertion when normally she would not. She denies syncope, near syncope, pleuritic pain, palpitations, nausea, vomiting, bloating, belching, lower extremity edema, and calf pain. She had an abnormal EKG about 10 years ago and a cardiac catheterization thereafter which was reportedly clear. At the time my evaluation she is resting comfortably and has no complaints. In the ED: She was in a sinus rhythm with rate of 75 on arrival and a blood pressure 159/79 with an SpO2 of 100% on room air. Labs were significant for WBC count of 13.9 and a troponin of less than 0.012. EKG showed sinus rhythm with voltage criteria for LVH and possible age-indeterminate anterior inferior infarct. She was given sublingual nitroglycerin with resolution of chest discomfort. She is being admitted in this setting for close monitoring and Cardiology consultation. Chest pain some typical component present. Ruled out for ACS with negative troponin x3. EKG with Q-waves in inferior leads. Further evaluation with stress test versus catheterization. Echocardiogram EF 60-65% no significant valvular abnormality.. Planned stress test in a.m.. Continue aspirin. Lipid profile with LDL 120 total cholesterol 227 HDL 49 triglyceride 119. Patient with Beta-dana with metoprolol succinate and spironolactone Hypertension continue home medication Hyperlipidemia as noted on lipid profile. Will benefit from at least moderate intensity statin. Statin started. GERD: EGD with mild gastritis. Pathology with Mild reactive gastropathy mild chronic reflux esophagitis. On omeprazole History of breast cancer in 2018 History of cervical cancer Dysuria will check UA DVT prophylaxis SCDs Code status full code Subjective Date/time seen: 09/19/24 13:16 Interval history: When some burning urination. No chest pain. Overall feels better. Review of Systems Review of Systems: All systems reviewed & are unremarkable except as noted in HPI and below Exam Narrative: General: Nontoxic-appearing female in the semi-Figueroa position no distress. HEENT: PERRL, EOMI. Sclera anicteric. Oral mucosa moist. Oropharynx clear. Neck: Supple. Respiratory: Lungs are clear to auscultation bilaterally. Cardiovascular: Regular rate and rhythm with S1-S2. Chest: No tenderness to palpation over the chest wall. Gastrointestinal: Abdomen is soft, nontender, and nondistended with positive bowel sounds. Skin: Warm and dry. No rash or lesions on limited exam. Extremities: No cyanosis, clubbing, or edema. Radial and pedal pulses intact. Neurological: Alert. Cranial nerves 2-12 are grossly intact. No gross focal deficits to casual conversation. Psychiatric: Pleasant and cooperative with normal mood and affect. Judgment and insight intact. Objective Data Vital Signs Vital Signs: Vital Signs - 24 hr 09/18/24 14:00 09/18/24 16:00 09/18/24 16:00 Temperature Pulse Rate 58 L 59 L Respiratory Rate Blood Pressure Pulse Oximetry 100 Oxygen Delivery Room Air 09/18/24 16:00 09/18/24 18:00 09/18/24 19:49 Temperature 98.5 F 98.0 F Pulse Rate 65 68 59 L Respiratory Rate 20 16 Blood Pressure 136/64 135/57 L Pulse Oximetry 98 100 Oxygen Delivery 09/18/24 20:00 09/18/24 20:41 09/18/24 22:00 Temperature Pulse Rate 63 59 L 59 L Respiratory Rate 16 Blood Pressure Pulse Oximetry 100 Oxygen Delivery Room Air 09/19/24 00:00 09/19/24 00:00 09/19/24 00:21 Temperature 98.2 F Pulse Rate 55 L 68 55 L Respiratory Rate 16 16 Blood Pressure 133/44 L Pulse Oximetry 98 98 Oxygen Delivery Room Air 09/19/24 01:53 09/19/24 04:00 09/19/24 04:00 Temperature 97.7 F Pulse Rate 63 58 L 56 L Respiratory Rate 16 Blood Pressure 132/74 Pulse Oximetry 100 Oxygen Delivery 09/19/24 04:00 09/19/24 05:25 09/19/24 08:00 Temperature 98.3 F Pulse Rate 56 L 54 L 63 Respiratory Rate 16 20 Blood Pressure 124/64 Pulse Oximetry 100 99 Oxygen Delivery Room Air 09/19/24 08:00 09/19/24 08:00 09/19/24 08:51 Temperature Pulse Rate 64 60 Respiratory Rate Blood Pressure Pulse Oximetry 99 Oxygen Delivery Room Air 09/19/24 10:00 09/19/24 12:00 09/19/24 12:00 Temperature 98.3 F Pulse Rate 66 73 73 Respiratory Rate 18 Blood Pressure 117/69 Pulse Oximetry 99 Oxygen Delivery 09/19/24 12:00 Temperature Pulse Rate Respiratory Rate Blood Pressure Pulse Oximetry 99 Oxygen Delivery Room Air Intake/Output Intake/Output: Intake & Output 09/16/24 09/17/24 09/18/24 09/19/24 23:59 23:59 23:59 23:59 Intake Total 222 1070 240 Output Total 2450 1100 Balance 678 -8534 -266 Meds/Results Medications: Active Medications Generic Name Dose Route Start Last Admin Trade Name Freq PRN Reason Stop Dose Admin Acetaminophen 650 mg 09/17/24 19:39 09/19/24 08:51 Acetaminophen 325 Mg Tablet PO 650 mg Q4H PRN Administration Mild Pain (1-3) or Fever Ascorbic Acid 500 mg 09/18/24 09:00 09/19/24 08:51 Ascorbic Acid 500 Mg Tablet PO 500 mg DAILY KASI Administration Aspirin 81 mg 09/18/24 09:00 09/19/24 08:51 Aspirin 81 Mg Enteric Tablet PO 81 mg QAM KASI Administration Atorvastatin Calcium 10 mg 09/19/24 09:00 09/19/24 08:51 Atorvastatin 10 Mg Tablet PO 10 mg DAILY KASI Administration Atorvastatin Calcium 40 mg 09/19/24 18:00 Atorvastatin 40 Mg Tablet PO EVENING [facility] Fluticasone Propionate 1 spray 09/18/24 00:52 Fluticasone Propionate 0.05% Na Spr 16 Gm Btl (*Bkc) NASAL DAILY PRN allergy symptoms Metoprolol Succinate 50 mg 09/18/24 09:00 09/19/24 08:51 Metoprolol Succinate Ext Rel 50 Mg Tabcr PO 50 mg DAILY KASI Administration Multivitamins Therapeutic 1 tablet 09/18/24 21:00 09/18/24 20:51 Multivitamins Therapeutic Tab (*Bkc) PO 1 tablet HS KASI Administration Nitroglycerin 0.4 mg 09/17/24 19:39 Nitroglycerin Sl 0.4 Mg Tablet SUBLINGUAL Q5MIN PRN Chest Pain Ondansetron HCl 4 mg 09/17/24 19:39 Ondansetron Inj 4 Mg/2 Ml Vial IV PUSH Q4H PRN Nausea Pantoprazole Sodium 40 mg 09/18/24 09:00 09/19/24 08:51 Pantoprazole 40 Mg Tablet PO 40 mg QAM KASI Administration Spironolactone 50 mg 09/18/24 21:00 09/18/24 20:51 Spironolactone 50 Mg Tablet PO 50 mg HS KASI Administration Radiology Results: ITS Impressions Chest X-Ray 09/17/24 13:35 IMPRESSION: No acute process.
[2024-09-19 14:08] LABS: Add Urine Microscopic? NO; Appearance Urine Clear (Clear); Bilirubin Urine Negative (Negative); Blood Urine Negative (Negative); Color Urine Yellow (Yellow); Glucose Urine UA Negative (Negative); Ketones Urine Negative (Negative); Leukocyte Esterase Ur Negative LEU/UL (Negative); Nitrate Urine Negative (Negative); Protein Urine Negative (Negative); Specific Grav Ur 1.006 (1.001-1.035); Urobilinogen Urine 0.2 mg/dL (<2.0); pH Urine 5.5 (5.0-9.0)
[2024-09-19] MEDS: ATORVASTATIN 40 MG TABLET PO (17:27)
[2024-09-19] MEDS: MULTIVITAMINS THERAPEUTIC TAB (*BKC) 1 TABLET PO (20:32)
[2024-09-19] MEDS: SPIRONOLACTONE 50 MG TABLET PO (20:32)
[2024-09-20] VITALS (8 sets, daily range): BP systolic 127–168; BP diastolic 60–75; PULSE 57–84; RESP 16; TEMP 36.6; O2SAT 98
[2024-09-20] MEDS: PANTOPRAZOLE 40 MG TABLET PO (09:13)
[2024-09-20] MEDS: ASPIRIN 81 MG ENTERIC TABLET PO (09:14)
[2024-09-20] MEDS: ASCORBIC ACID 500 MG TABLET PO (09:14)
--- NOTE | 2024-09-20 09:52 | PM.IMPN ---
Progress Note: A&P Assessment and Plan (1) Chest pain: Code(s): R07.9 - Chest pain, unspecified Status: Acute (2) Hypertension: Code(s): I10 - Essential (primary) hypertension Status: Acute Plan This is a very pleasant 64-year-old female with hypertension, gastroesophageal reflux disease, gastritis on recent EGD, and breast cancer in 2018 who presented to the emergency department via private vehicle with complaints of chest pain. A few days ago she tells me that she woke up and was feeling a bit short winded when walking around the house. She then went outside to water her plants and had to come back inside after about 10 minutes because she was still feeling short winded and she also began experiencing heaviness in the mid chest region as well as feelings of lightheadedness. She went inside to rest but her symptoms continued for at least 3 hours. She goes on to say that she has been increasingly fatigued and generally weak since that time. She continues to have intermittent episodes of the chest heaviness and shortness of breath although it is not constant. With further questioning she admits that she has been more fatigued over the last several weeks and had noticed that she was getting short of breath with exertion when normally she would not. She denies syncope, near syncope, pleuritic pain, palpitations, nausea, vomiting, bloating, belching, lower extremity edema, and calf pain. She had an abnormal EKG about 10 years ago and a cardiac catheterization thereafter which was reportedly clear. At the time my evaluation she is resting comfortably and has no complaints. In the ED: She was in a sinus rhythm with rate of 75 on arrival and a blood pressure 159/79 with an SpO2 of 100% on room air. Labs were significant for WBC count of 13.9 and a troponin of less than 0.012. EKG showed sinus rhythm with voltage criteria for LVH and possible age-indeterminate anterior inferior infarct. She was given sublingual nitroglycerin with resolution of chest discomfort. She is being admitted in this setting for close monitoring and Cardiology consultation. Chest pain some typical component present. Ruled out for ACS with negative troponin x3. EKG with Q-waves in inferior leads. Further evaluation with stress test versus catheterization. Echocardiogram EF 60-65% no significant valvular abnormality.. Planned stress test this afternoon. Continue aspirin. Lipid profile with LDL 120 total cholesterol 227 HDL 49 triglyceride 119. Patient with Beta-dana with metoprolol succinate and spironolactone Hypertension continue home medication Hyperlipidemia as noted on lipid profile. Will benefit from at least moderate intensity statin. Statin started. GERD: EGD with mild gastritis. Pathology with Mild reactive gastropathy mild chronic reflux esophagitis. On omeprazole History of breast cancer in 2018 History of cervical cancer Dysuria checked UA which was negative. DVT prophylaxis SCDs Code status full code Subjective Date/time seen: 09/20/24 09:52 Interval history: No overnight events. No further chest pain. No burning urination as well. Going for stress test today. Review of Systems Review of Systems: All systems reviewed & are unremarkable except as noted in HPI and below Exam Narrative: General: Nontoxic-appearing female in the semi-Figueroa position no distress. HEENT: PERRL, EOMI. Sclera anicteric. Oral mucosa moist. Oropharynx clear. Neck: Supple. Respiratory: Lungs are clear to auscultation bilaterally. Cardiovascular: Regular rate and rhythm with S1-S2. Chest: No tenderness to palpation over the chest wall. Gastrointestinal: Abdomen is soft, nontender, and nondistended with positive bowel sounds. Skin: Warm and dry. No rash or lesions on limited exam. Extremities: No cyanosis, clubbing, or edema. Radial and pedal pulses intact. Neurological: Alert. Cranial nerves 2-12 are grossly intact. No gross focal deficits to casual conversation. Psychiatric: Pleasant and cooperative with normal mood and affect. Judgment and insight intact. Objective Data Vital Signs Vital Signs: Vital Signs - 24 hr 09/19/24 10:00 09/19/24 12:00 09/19/24 12:00 Temperature 98.3 F Pulse Rate 66 73 73 Respiratory Rate 18 Blood Pressure 117/69 Pulse Oximetry 99 Oxygen Delivery Fraction of Inspired Oxygen 09/19/24 12:00 09/19/24 14:00 09/19/24 16:00 Temperature 97.6 F Pulse Rate 62 69 Respiratory Rate 20 Blood Pressure 149/77 H Pulse Oximetry 99 100 Oxygen Delivery Room Air Fraction of Inspired Oxygen 09/19/24 16:00 09/19/24 16:00 09/19/24 18:00 Temperature Pulse Rate 64 62 Respiratory Rate Blood Pressure Pulse Oximetry 100 Oxygen Delivery Room Air Fraction of Inspired Oxygen 09/19/24 20:00 09/19/24 20:00 09/19/24 20:00 Temperature 97.7 F Pulse Rate 75 77 Respiratory Rate 16 Blood Pressure 129/58 L Pulse Oximetry 98 Oxygen Delivery Room Air Fraction of Inspired Oxygen 09/19/24 21:00 09/19/24 22:00 09/19/24 23:55 Temperature 98.3 F Pulse Rate 58 L 64 Respiratory Rate 16 Blood Pressure 127/67 Pulse Oximetry 99 99 Oxygen Delivery Room Air Fraction of Inspired Oxygen 21 09/20/24 00:00 09/20/24 00:00 09/20/24 02:00 Temperature Pulse Rate 62 60 Respiratory Rate Blood Pressure Pulse Oximetry Oxygen Delivery Room Air Fraction of Inspired Oxygen 09/20/24 04:00 09/20/24 04:00 09/20/24 04:00 Temperature 97.8 F Pulse Rate 60 67 Respiratory Rate 16 Blood Pressure 127/72 Pulse Oximetry 98 Oxygen Delivery Room Air Fraction of Inspired Oxygen 09/20/24 06:00 09/20/24 08:00 Temperature 97.9 F Pulse Rate 57 L 63 Respiratory Rate 16 Blood Pressure 134/60 Pulse Oximetry 98 Oxygen Delivery Fraction of Inspired Oxygen Intake/Output Intake/Output: Intake & Output 09/17/24 09/18/24 09/19/24 09/20/24 23:59 23:59 23:59 23:59 Intake Total 222 1070 1170 120 Output Total 2450 1450 1500 Balance 222 1380 -280 1380 Meds/Results Medications: Active Medications Generic Name Dose Route Start Last Admin Trade Name Freq PRN Reason Stop Dose Admin Acetaminophen 650 mg 09/17/24 19:39 09/19/24 20:33 Acetaminophen 325 Mg Tablet PO 325 mg Q4H PRN Administration Mild Pain (1-3) or Fever Ascorbic Acid 500 mg 09/18/24 09:00 09/20/24 09:14 Ascorbic Acid 500 Mg Tablet PO 500 mg DAILY KASI Administration Aspirin 81 mg 09/18/24 09:00 09/20/24 09:14 Aspirin 81 Mg Enteric Tablet PO 81 mg QAM KASI Administration Atorvastatin Calcium 40 mg 09/19/24 18:00 09/19/24 17:27 Atorvastatin 40 Mg Tablet PO 40 mg EVENING KASI Administration Fluticasone Propionate 1 spray 09/18/24 00:52 Fluticasone Propionate 0.05% Na Spr 16 Gm Btl (*Bkc) NASAL DAILY PRN allergy symptoms Metoprolol Succinate 50 mg 09/18/24 09:00 09/19/24 08:51 Metoprolol Succinate Ext Rel 50 Mg Tabcr PO 50 mg DAILY KASI Administration Multivitamins Therapeutic 1 tablet 09/18/24 21:00 09/19/24 20:32 Multivitamins Therapeutic Tab (*Bkc) PO 1 tablet HS KASI Administration Nitroglycerin 0.4 mg 09/17/24 19:39 Nitroglycerin Sl 0.4 Mg Tablet SUBLINGUAL Q5MIN PRN Chest Pain Ondansetron HCl 4 mg 09/17/24 19:39 Ondansetron Inj 4 Mg/2 Ml Vial IV PUSH Q4H PRN Nausea Pantoprazole Sodium 40 mg 09/18/24 09:00 09/20/24 09:13 Pantoprazole 40 Mg Tablet PO 40 mg QAM KASI Administration Spironolactone 50 mg 09/18/24 21:00 09/19/24 20:32 Spironolactone 50 Mg Tablet PO 50 mg HS KASI Administration Radiology Results: ITS Impressions Chest X-Ray 09/17/24 13:35 IMPRESSION: No acute process. Labs Labs: Laboratory Results - last 24 hr 09/19/24 13:51 Urine Color Yellow Urine Appearance Clear Urine pH 5.5 Ur Specific [place] 1.006 Urine Protein Negative Urine Glucose (UA) Negative Urine Ketones Negative Ur Blood (Man) Negative Urine Nitrate Negative Urine Bilirubin Negative Urine Urobilinogen 0.2 Ur Leukocyte Esterase Negative
--- NOTE | 2024-09-20 12:32 | PM.PNCARD ---
Progress Note: A&P Assessment and Plan (1) Chest pain: Code(s): R07.9 - Chest pain, unspecified Status: Acute (2) Hyperlipidemia: Code(s): E78.5 - Hyperlipidemia, unspecified Status: Acute (3) Hypertension: Code(s): I10 - Essential (primary) hypertension Status: Acute Plan 64-year-old woman with history of breast cancer (2018), hypertension, and gastritis on recent EGD presented with chest pain Chest pain -troponin negative for CA transthoracic shows normal biventricular systolic function no regional wall motion abnormality however it does show trace pericardial effusion -Awaiting results of treadmill nuclear stress test. If negative, she can be discharged -will prescribe Tylenol p.r.n. prior to her treadmill exercise as she does have some hip discomfort with ambulation Hypertension -continue spironolactone Hyperlipidemia -start atorvastatin 40 mg every evening Subjective Date/time seen: 09/20/24 12:32 Interval history: Cardiology follow up visit No chest pain or shortness of breath Date of service 09/20/2024: Denies any recurrence of chest pain. No shortness of breath, palpitations. Review of Systems Cardiovascular: Cardiovascular: Reports as per HPI Respiratory: Respiratory: Reports as per HPI Exam Const: General: comfortable HENMT: Mouth: Yes moist mucous membranes Eyes: EOM: EOMs intact bilaterally Neck: Neck: no JVD Resp: Effort & Inspection: normal respiratory effort Auscultation: clear to auscultation bilaterally Cardio: Rate: regular rate Rhythm: regular rhythm Neuro: Speech: normal speech Extrem: General: no pedal edema Objective Data Vital Signs Vital Signs: Vital Signs - 24 hr 09/19/24 14:00 09/19/24 16:00 09/19/24 16:00 Temperature 36.4 C Pulse Rate 62 69 Respiratory Rate 20 Blood Pressure 149/77 H Pulse Oximetry 100 100 Oxygen Delivery Room Air Fraction of Inspired Oxygen 09/19/24 16:00 09/19/24 18:00 09/19/24 20:00 Temperature 36.5 C Pulse Rate 64 62 75 Respiratory Rate 16 Blood Pressure 129/58 L Pulse Oximetry 98 Oxygen Delivery Fraction of Inspired Oxygen 09/19/24 20:00 09/19/24 20:00 09/19/24 21:00 Temperature Pulse Rate 77 Respiratory Rate Blood Pressure Pulse Oximetry 99 Oxygen Delivery Room Air Room Air Fraction of Inspired Oxygen 09/19/24 22:00 09/19/24 23:55 09/20/24 00:00 Temperature 36.8 C Pulse Rate 58 L 64 Respiratory Rate 16 Blood Pressure 127/67 Pulse Oximetry 99 Oxygen Delivery Room Air Fraction of Inspired Oxygen 09/20/24 00:00 09/20/24 02:00 09/20/24 04:00 Temperature Pulse Rate 62 60 Respiratory Rate Blood Pressure Pulse Oximetry Oxygen Delivery Room Air Fraction of Inspired Oxygen 09/20/24 04:00 09/20/24 04:00 09/20/24 06:00 Temperature 36.6 C Pulse Rate 60 67 57 L Respiratory Rate 16 Blood Pressure 127/72 Pulse Oximetry 98 Oxygen Delivery Fraction of Inspired Oxygen 09/20/24 08:00 09/20/24 08:00 09/20/24 08:00 Temperature 36.6 C Pulse Rate 63 73 73 Respiratory Rate 16 16 Blood Pressure 134/60 Pulse Oximetry 98 98 Oxygen Delivery Room Air Fraction of Inspired Oxygen 21 09/20/24 10:00 09/20/24 12:00 Temperature 36.6 C Pulse Rate 71 84 Respiratory Rate 16 Blood Pressure 168/75 H Pulse Oximetry 98 Oxygen Delivery Fraction of Inspired Oxygen Intake/Output Intake/Output: Intake & Output 09/17/24 09/18/24 09/19/24 09/20/24 23:59 23:59 23:59 23:59 Intake Total 222 1070 1170 120 Output Total 2450 1450 1500 Balance 222 1380 -280 1380 Meds/Results Medications: Active Medications Generic Name Dose Route Start Last Admin Trade Name Freq PRN Reason Stop Dose Admin Acetaminophen 650 mg 09/17/24 19:39 09/19/24 20:33 Acetaminophen 325 Mg Tablet PO 325 mg Q4H PRN Administration Mild Pain (1-3) or Fever Ascorbic Acid 500 mg 09/18/24 09:00 09/20/24 09:14 Ascorbic Acid 500 Mg Tablet PO 500 mg DAILY KASI Administration Aspirin 81 mg 09/18/24 09:00 09/20/24 09:14 Aspirin 81 Mg Enteric Tablet PO 81 mg QAM KASI Administration Atorvastatin Calcium 40 mg 09/19/24 18:00 09/19/24 17:27 Atorvastatin 40 Mg Tablet PO 40 mg EVENING KASI Administration Fluticasone Propionate 1 spray 09/18/24 00:52 Fluticasone Propionate 0.05% Na Spr 16 Gm Btl (*Bkc) NASAL DAILY PRN allergy symptoms Metoprolol Succinate 50 mg 09/18/24 09:00 09/19/24 08:51 Metoprolol Succinate Ext Rel 50 Mg Tabcr PO 50 mg DAILY KASI Administration Multivitamins Therapeutic 1 tablet 09/18/24 21:00 09/19/24 20:32 Multivitamins Therapeutic Tab (*Bkc) PO 1 tablet HS KASI Administration Nitroglycerin 0.4 mg 09/17/24 19:39 Nitroglycerin Sl 0.4 Mg Tablet SUBLINGUAL Q5MIN PRN Chest Pain Ondansetron HCl 4 mg 09/17/24 19:39 Ondansetron Inj 4 Mg/2 Ml Vial IV PUSH Q4H PRN Nausea Pantoprazole Sodium 40 mg 09/18/24 09:00 09/20/24 09:13 Pantoprazole 40 Mg Tablet PO 40 mg QAM KASI Administration Spironolactone 50 mg 09/18/24 21:00 09/19/24 20:32 Spironolactone 50 Mg Tablet PO 50 mg HS KASI Administration Radiology Results: ITS Impressions Chest X-Ray 09/17/24 13:35 IMPRESSION: No acute process. Labs Labs: Laboratory Results - last 24 hr 09/19/24 13:51 Urine Color Yellow Urine Appearance Clear Urine pH 5.5 Ur Specific [place] 1.006 Urine Protein Negative Urine Glucose (UA) Negative Urine Ketones Negative Ur Blood (Man) Negative Urine Nitrate Negative Urine Bilirubin Negative Urine Urobilinogen 0.2 Ur Leukocyte Esterase Negative Quality VTE Prophylaxis VTE prophylaxis: pharmacologic ordered
--- NOTE | 2024-09-20 13:47 | PM.DS ---
DS: Admitting Diagnosis Discharge Date 09/20/2024 Admitting Diagnosis Chest pain DS: Discharge Diagnosis Discharge Diagnosis (1) Chest pain: Code(s): R07.9 - Chest pain, unspecified Status: Acute (2) Hypertension: Code(s): I10 - Essential (primary) hypertension Status: Acute DS: Summary Hospital Course Hospital Course: This is a very pleasant 64-year-old female with hypertension, gastroesophageal reflux disease, gastritis on recent EGD, and breast cancer in 2018 who presented to the emergency department via private vehicle with complaints of chest pain. A few days ago she tells me that she woke up and was feeling a bit short winded when walking around the house. She then went outside to water her plants and had to come back inside after about 10 minutes because she was still feeling short winded and she also began experiencing heaviness in the mid chest region as well as feelings of lightheadedness. She went inside to rest but her symptoms continued for at least 3 hours. She goes on to say that she has been increasingly fatigued and generally weak since that time. She continues to have intermittent episodes of the chest heaviness and shortness of breath although it is not constant. With further questioning she admits that she has been more fatigued over the last several weeks and had noticed that she was getting short of breath with exertion when normally she would not. She denies syncope, near syncope, pleuritic pain, palpitations, nausea, vomiting, bloating, belching, lower extremity edema, and calf pain. She had an abnormal EKG about 10 years ago and a cardiac catheterization thereafter which was reportedly clear. At the time my evaluation she is resting comfortably and has no complaints. In the ED: She was in a sinus rhythm with rate of 75 on arrival and a blood pressure 159/79 with an SpO2 of 100% on room air. Labs were significant for WBC count of 13.9 and a troponin of less than 0.012. EKG showed sinus rhythm with voltage criteria for LVH and possible age-indeterminate anterior inferior infarct. She was given sublingual nitroglycerin with resolution of chest discomfort. She is being admitted in this setting for close monitoring and Cardiology consultation. Chest pain some typical component present. Ruled out for ACS with negative troponin x3. EKG with Q-waves in inferior leads. Further evaluation with stress test versus catheterization. Echocardiogram EF 60-65% no significant valvular abnormality.. Planned stress test which was performed on 09/20/2024 which came back normal.. Continue aspirin. Lipid profile with LDL 120 total cholesterol 227 HDL 49 triglyceride 119. Patient with Beta-dana with metoprolol succinate and spironolactone Hypertension continue home medication Hyperlipidemia as noted on lipid profile. Will benefit from at least moderate intensity statin. Statin started. GERD: EGD with mild gastritis. Pathology with Mild reactive gastropathy mild chronic reflux esophagitis. On omeprazole History of breast cancer in 2018 History of cervical cancer Dysuria checked UA which was negative. DVT prophylaxis SCDs Code status full code Time Spent with Patient Time attestation: Total time spent providing and/or coordinating discharge services: 35 minutes Exam Narrative: General: Nontoxic-appearing female in the semi-Figueroa position no distress. HEENT: PERRL, EOMI. Sclera anicteric. Oral mucosa moist. Oropharynx clear. Neck: Supple. Respiratory: Lungs are clear to auscultation bilaterally. Cardiovascular: Regular rate and rhythm with S1-S2. Chest: No tenderness to palpation over the chest wall. Gastrointestinal: Abdomen is soft, nontender, and nondistended with positive bowel sounds. Skin: Warm and dry. No rash or lesions on limited exam. Extremities: No cyanosis, clubbing, or edema. Radial and pedal pulses intact. Neurological: Alert. Cranial nerves 2-12 are grossly intact. No gross focal deficits to casual conversation. Psychiatric: Pleasant and cooperative with normal mood and affect. Judgment and insight intact. DS: Data Data Completed and Pending Completed studies during hospitalization: Exam Type: CA echo dop color flow w con Complete two-dimensional, color flow and Doppler transthoracic echocardiogram is performed with contrast to opacify the left ventricle and to improve the deliniation of the left ventricle endocardial borders. Staff Referring Physician: Abraham Hawthorne Cad Specialist: Jennie Kee Attending Provider: Loyd Gilbert Contrast/Agitated Saline Contrast/Ag. Saline: Definity Amount: 2.00 ml Administered By: Jennie Kee Existing IV Access: Yes IV Access Condition: patent with no signs of infiltration Summary 1. The left ventricle is normal in size and systolic function. The left ventricular ejection fraction is visually estimated to be 60-65%. There are no regional wall motion abnormalities. 2. The right ventricle is normal in size and systolic function. 3. There are no significant valvular abnormalities. 4. There is trace pericardial effusion. Left Ventricle The left ventricle is normal in size and systolic function. The left ventricular ejection fraction is visually estimated to be 60-65%. There are no regional wall motion abnormalities. Right Ventricle The right ventricle is normal in size and systolic function. Left Atria The left atrium is normal size. Right Atria The right atrium is normal size. Atrial Septum The atrial septum is normal. Aortic Valve The aortic valve is trileaflet and opens well. There is no aortic regurgitation. Pulmonic Valve The pulmonic valve is grossly normal. There is trace pulmonic valve regurgitation. Mitral Valve The mitral valve is normal. There is no mitral regurgitation. Tricuspid Valve The tricuspid valve is normal. There is trace tricuspid regurgitation. Pericardium/Pleural There is trace pericardial effusion. Inferior Vena Cava Normal inferior vena cava with >50% collapse upon inspiration consistent with normal right atrial pressure, 3 mmHg. Aorta The aortic root at the level of the sinus of Valsalva measures 2.6 cm in diameter. Labs on day of discharge: Labs from last 24 hours 09/19/24 13:51 Urine Color Yellow Urine Appearance Clear Urine pH 5.5 Ur Specific [place] 1.006 Urine Protein Negative Urine Glucose (UA) Negative Urine Ketones Negative Ur Blood (Man) Negative Urine Nitrate Negative Urine Bilirubin Negative Urine Urobilinogen 0.2 Ur Leukocyte Esterase Negative Imaging Radiologist's impression: ITS Impressions Chest X-Ray 09/17/24 13:35 IMPRESSION: No acute process. Pharmacological Stress Test 09/20/24 13:40 IMPRESSION: 1. Normal myocardial perfusion at rest and during stress. 2. Left ventricular ejection fraction measuring >70%. Discharge Plan Discharge Attending physician on discharge: Tenzin Dhaliwal Consulting providers: Samir Fitzgerald Discharging Clinician: Tenzin Dhaliwal Anticipated Discharge Date/Time: 09/20/24 13:21 Patient Disposition: Home Activity: as tolerated Diet: heart healthy Patient Instructions: Antibiotic Form, Atorvastatin (By mouth), Angina (GEN), Chest Pain (GEN), Cardiac Stress Test (GEN), Nuclear Stress Test (GEN) Patient Language: P[place] Stand Alone Forms: General Discharge Information Follow-up/Referrals: Beau,MD Carlos [Primary Care Provider] - 1 Week Discharge Medications: New atorvastatin 40 mg Tablet 40 mg PO EVENING Qty: 30 0RF aspirin 81 mg Tablet,Delayed Release (Dr/Ec) 81 mg PO QAM Qty: 30 0RF Continued omega [id number]-pex-fish oil [Fish Oil] 1,000 (120-180) mg capsule 1 cap PO BID multivitamin [Daily Multi-Vitamin] Tablet 1 tablet PO HS ascorbic acid (vitamin C) 1 tablet PO DAILY metoprolol succinate 50 mg tablet extended release 24 hr 50 mg PO DAILY spironolactone 50 mg tablet 50 mg PO HS fluticasone propionate 50 mcg/actuation spray,suspension 1 spray INTRANASAL DAILY PRN (Reason: allergy symptoms) omeprazole 20 mg capsule,delayed release(DR/EC) 20 mg PO DAILY Qty: 30 1RF Date of admission: 09/18/24 09:39 Primary Care Provider: FannyCarlos Admitting Provider: Loyd Gilbert Attending physician on admission: Loyd Gilbert Condition: Stable
--- NOTE | 2024-09-20 14:21 | PC.NURSE ---
Reviewed all discharge paperwork with patient including updated medication list, last dose taken and next dose due. Verbalizes understanding at this time. Denies further questions. Patient states that her ride will be here to pick her up between 3:30-4pm.
== END 2024-09-20 16:14 | disposition home or self-care (01) | DRG 313 ==
LOC: ANHED 19:54 → ANHIMU 21:17
PROVIDERS: Emergency Medicine; General Practice; Physician Assistant; Admitting Provider Internal Medicine; Emergency Provider Emergency Medicine; PCP Internal Medicine; Visit Provider Internal Medicine
DX: R07.9 Chest pain, unspecified (principal); I31.39 Other pericardial effusion (noninflammatory); K21.00 Gastro-esophageal reflux disease with esophagitis, without bleeding; I10 Essential (primary) hypertension; E78.5 Hyperlipidemia, unspecified; L40.9 Psoriasis, unspecified; Z87.891 Personal history of nicotine dependence; Z85.41 Personal history of malignant neoplasm of cervix uteri; Z85.3 Personal history of malignant neoplasm of breast; Z90.711 Acquired absence of uterus with remaining cervical stump
CPT/HCPCS: 36415; 71046; 78452; 80048; 80053; 80061; 81003; 83690; 84484; 85025; 85027; 85380; 85610; 85730; 93005; 93017; 96374; 99285; A9270; A9502; C8929; G0378; Q9957